=== PATIENT | female | born 1965 | race Caucasian/White ===

== ENCOUNTER 2018-03-09 10:01 | Inpatient (IN) ==
[2018-03-09] MEDS ORDERED: Morphine Inj 4 MG/ML Vial ONE (10:10)
--- NOTE | 2018-03-09 10:11 | ED ---
HPI General Chief Complaint: STEMI Alert Stated Complaint: Medical Time Seen by Provider: 03/09/18 10:03 Source: patient Mode of arrival: EMS Limitations: no limitations History of Present Illness MD complaint: Reports chest pain STEMI Alert: Yes Onset (ago): minute(s) (45) Duration: constant Onset: during rest Pain location: Reports substernal Severity: severe Severity scale (1-10): 8 Quality: Reports tightness Pain radiation: Reports back Relieving factors: nothing Exacerbating factors: nothing Associated symptoms: Reports nausea and diaphoresis Treatments prior to arrival chest pain: Reports aspirin (324 BY EMS) and oxygen Related Data Previous Rx's Medication Instructions Recorded diclofenac sodium 75 mg PO BID #20 tab 11/25/17 Allergies Allergy/AdvReac Type Severity Reaction Status Date / Time amoxicillin Allergy Mild RED RASH Verified 03/09/18 11:23 iodine Allergy Mild Hives Verified 03/09/18 11:23 penicillin G Allergy Mild RED RASH Verified 03/09/18 11:23 potassium iodide Allergy Mild Hives Verified 03/09/18 11:23 povidone-iodine Allergy Mild Hives Verified 03/09/18 11:23 sodium iodide Allergy Mild Hives Verified 03/09/18 11:23 sodium iodide Allergy Mild Hives Verified 03/09/18 11:23 Sulfa (Sulfonamide Allergy Mild RED RASH Verified 03/09/18 11:23 Antibiotics) ALL CILLINS Allergy Severe Rash Uncoded 03/09/18 11:23 Review of Systems ROS: all other systems reviewed are negative PMFSH History History Provided By: Patient Medical History Medical History Heart attack (Acute) Patient denies medical problems (Acute) Surgical History Surgical History History of cardiac cath (Acute) Status post surgical manipulation of ankle joint (Acute) Family History Family History Other Family history non-contributory Social History Social History Substance History: No History of Abuse Second Hand Smoke Exposure: No Smoking Status: Former smoker Tobacco Type: Cigarettes How Often Do You Have a Drink Containing Alcohol: Never Recent Travel in [facility] within the Last 8 Weeks: No Recent Out of Country Travel within the Last 8 Weeks: No Exam Narrative Exam Narrative: GENERAL: female in moderate distress, diaphoresis SKIN: Warm and dry. HEAD: Atraumatic. Normocephalic. EYES: Pupils equal and round. No scleral icterus. No injection or drainage. ENT: No nasal bleeding or discharge. Mucous membranes pink and moist. NECK: Trachea midline. No JVD. CARDIOVASCULAR: Regular rate and rhythm. no rubs or gallops.bilateral radial pulses equal nonbounding RESPIRATORY: No accessory muscle use. Clear to auscultation. Breath sounds equal bilaterally. GASTROINTESTINAL: Abdomen soft, non-tender, nondistended. No rebound or guarding MUSCULOSKELETAL: Extremities without clubbing, cyanosis, or edema. No obvious deformities. NEUROLOGICAL: Awake and alert. No obvious cranial nerve deficits. Motor grossly within normal limits. Five out of 5 muscle strength in the arms and legs. Normal speech. PSYCHIATRIC: Appropriate mood and affect; insight and judgment normal. Course Initial Documented Vital Signs Temperature 98 F 03/09/18 10:06 Pulse Rate 66 03/09/18 10:06 Respiratory Rate 18 03/09/18 10:06 Blood Pressure 138/96 H 03/09/18 10:06 Pulse Oximetry 97 03/09/18 10:06 Last Documented Vital Signs Temperature 98.9 F 03/14/18 03:00 Pulse Rate 82 03/14/18 06:00 Respiratory Rate 20 03/14/18 03:00 Blood Pressure 117/58 L 03/14/18 03:00 Pulse Oximetry 93 L 03/14/18 03:00 Critical Care Time Critical Care Time: Yes Total Critical Care Time: 30 Attestation: Aggregate critical care time was 30 minutes. Time to perform other separately billable procedures was not included in the critical care time. My time did not include minutes spent treating any other patients simultaneously or on activities that did not directly contribute to the patient's treatment. The services I provided to this patient were to treat and/or prevent clinically significant deterioration I provided critical care services requiring my management, as noted below: Chart data review, documentation time, medication orders and management, vital sign assessments/reviewing monitor data, ordering and reviewing lab tests, ordering and interpreting/reviewing x-rays and diagnostic studies, care of the patient and discussion of the patient with the admitting physicians. Medical Decision Making MDM Narrative Medical decision making narrative: EKG reviewed showing normal sinus, 62 bpm, ST elevations in 2 3 aVF consistent with an inferior STEMI, these findings were discussed with brewery technician Dr. Felipe Benitez who requested Dr. Hall in the [facility] be alerted...due to inferior ekg changes ntg avoided as it could cause hypotension. patient not hypertensive or tachycardic so beta blockers withheld Due to the patient's initial presentation with severe chest pain radiating towards the back there was a concern for aneurysm, patient was given morphine fluids oxygen (withheld anticoagulant) and transported to CTA to rule out aneurysm, however patient stated that she was allergic to iodine at which time aborted the CT and went straight to the [facility] Medical Screen Exam Complete: Yes Emergency Medical Condition: Yes Lab Data Result diagrams: 03/12/18 04:00 03/12/18 04:00 Lab Results 03/09/18 03/09/18 03/09/18 Range/Units 11:12 11:18 11:18 WBC 11.7 H (4.0-11.0) th/mm3 RBC 4.49 (4.00-5.30) mil/mm3 Hgb 13.5 (11.6-15.3) gm/dL POC Hgb (Calc) Cancelled Hct 39.5 (35.0-46.0) % POC Hct Cancelled MCV 87.8 (80.0-100.0) fL MCH 30.0 (27.0-34.0) pg MCHC 34.2 (32.0-36.0) % RDW 13.5 (11.6-17.2) % Plt Count 227 (150-450) th/mm3 MPV 9.2 (7.0-11.0) fL Neut % (Auto) 78.4 H (16.0-70.0) % Lymph % (Auto) 14.6 (9.0-44.0) % Lander % (Auto) 2.6 (0.0-8.0) % Eos % (Auto) 3.8 (0.0-4.0) % Baso % (Auto) 0.6 (0.0-2.0) % Neut # (Auto) 9.2 H (1.8-7.7) th/mm3 Lymph # (Auto) 1.7 (1.0-4.8) th/mm3 Lander # (Auto) 0.3 (0.0-0.9) th/mm3 Eos # (Auto) 0.4 (0.0-0.4) th/mm3 Baso # (Auto) 0.1 (0.0-0.2) th/mm3 WBC Differential . Differential Comment Auto diff final PT (9.8-11.6) sec INR Ratio APTT (23.4-31.7) sec Fibrinogen (227-377) mg/dL POC Sodium Cancelled Sodium 134 L (136-145) meq/L POC Potassium Cancelled Potassium 3.8 (3.5-5.1) meq/L POC Chloride Cancelled Chloride 102 (98-107) meq/L Carbon Dioxide 23.4 (21.0-32.0) meq/L Anion Gap 9 (5-15) meq/L POC BUN Cancelled BUN 15 (7-18) mg/dL Creatinine 0.51 (0.50-1.00) mg/dL POC Creatinine Cancelled Estimated GFR Greater than 89 (>89) mL/min POC Glucose Cancelled Random Glucose 130 H (74-106) mg/dL Lactic Acid (0.4-2.0) mmol/L Calcium 7.8 L (8.5-10.1) mg/dL Calcium Adj for Albumin (8.5-10.1) mg/dL Magnesium 1.8 (1.5-2.5) mg/dL Total Bilirubin (0.2-1.0) mg/dL AST (15-37) U/L ALT (10-53) U/L Alkaline Phosphatase (45-117) U/L Total Creatine Kinase 56 (26-192) U/L Troponin I 0.16 H (0.02-0.05) ng/mL B-Natriuretic Peptide (0-100) pg/mL Total Protein (6.4-8.2) g/dL Albumin (3.4-5.0) g/dL Blood Type B Positive Antibody Screen Negative MTS Gel Crossmatch 03/09/18 03/09/18 03/09/18 Range/Units 11:18 11:36 11:39 WBC (4.0-11.0) th/mm3 RBC (4.00-5.30) mil/mm3 Hgb (11.6-15.3) gm/dL POC Hgb (Calc) Hct (35.0-46.0) % POC Hct MCV (80.0-100.0) fL MCH (27.0-34.0) pg MCHC (32.0-36.0) % RDW (11.6-17.2) % Plt Count (150-450) th/mm3 MPV (7.0-11.0) fL Neut % (Auto) (16.0-70.0) % Lymph % (Auto) (9.0-44.0) % Lander % (Auto) (0.0-8.0) % Eos % (Auto) (0.0-4.0) % Baso % (Auto) (0.0-2.0) % Neut # (Auto) (1.8-7.7) th/mm3 Lymph # (Auto) (1.0-4.8) th/mm3 Lander # (Auto) (0.0-0.9) th/mm3 Eos # (Auto) (0.0-0.4) th/mm3 Baso # (Auto) (0.0-0.2) th/mm3 WBC Differential Differential Comment PT (9.8-11.6) sec INR Ratio APTT (23.4-31.7) sec Fibrinogen (227-377) mg/dL POC Sodium Sodium Cancelled (136-145) meq/L POC Potassium Potassium Cancelled (3.5-5.1) meq/L POC Chloride Chloride Cancelled (98-107) meq/L Carbon Dioxide Cancelled (21.0-32.0) meq/L Anion Gap Cancelled (5-15) meq/L POC BUN BUN Cancelled (7-18) mg/dL Creatinine Cancelled (0.50-1.00) mg/dL POC Creatinine Estimated GFR Cancelled (>89) mL/min POC Glucose Random Glucose Cancelled (74-106) mg/dL Lactic Acid (0.4-2.0) mmol/L Calcium Cancelled (8.5-10.1) mg/dL Calcium Adj for Albumin (8.5-10.1) mg/dL Magnesium (1.5-2.5) mg/dL Total Bilirubin (0.2-1.0) mg/dL AST (15-37) U/L ALT (10-53) U/L Alkaline Phosphatase (45-117) U/L Total Creatine Kinase (26-192) U/L Troponin I (0.02-0.05) ng/mL B-Natriuretic Peptide 33 (0-100) pg/mL Total Protein (6.4-8.2) g/dL Albumin (3.4-5.0) g/dL Blood Type Antibody Screen MTS Gel Crossmatch See Detail 03/09/18 03/09/18 03/09/18 Range/Units 12:40 12:48 16:25 WBC 25.5 H D (4.0-11.0) th/mm3 RBC 4.54 (4.00-5.30) mil/mm3 Hgb 14.1 (11.6-15.3) gm/dL POC Hgb (Calc) Hct 41.3 (35.0-46.0) % POC Hct MCV 91.0 (80.0-100.0) fL MCH 31.1 (27.0-34.0) pg MCHC 34.1 (32.0-36.0) % RDW 13.8 (11.6-17.2) % Plt Count 134 L D (150-450) th/mm3 MPV 9.1 (7.0-11.0) fL Neut % (Auto) 92.0 H (16.0-70.0) % Lymph % (Auto) 5.7 L (9.0-44.0) % Lander % (Auto) 1.7 (0.0-8.0) % Eos % (Auto) 0.3 (0.0-4.0) % Baso % (Auto) 0.3 (0.0-2.0) % Neut # (Auto) 23.4 H (1.8-7.7) th/mm3 Lymph # (Auto) 1.4 (1.0-4.8) th/mm3 Lander # (Auto) 0.4 (0.0-0.9) th/mm3 Eos # (Auto) 0.1 (0.0-0.4) th/mm3 Baso # (Auto) 0.1 (0.0-0.2) th/mm3 WBC Differential . Differential Comment Auto diff final PT 10.7 (9.8-11.6) sec INR 1.1 Ratio APTT 48.8 H (23.4-31.7) sec Fibrinogen (227-377) mg/dL POC Sodium Sodium (136-145) meq/L POC Potassium Potassium (3.5-5.1) meq/L POC Chloride Chloride (98-107) meq/L Carbon Dioxide (21.0-32.0) meq/L Anion Gap (5-15) meq/L POC BUN BUN (7-18) mg/dL Creatinine (0.50-1.00) mg/dL POC Creatinine Estimated GFR (>89) mL/min POC Glucose Random Glucose (74-106) mg/dL Lactic Acid (0.4-2.0) mmol/L Calcium (8.5-10.1) mg/dL Calcium Adj for Albumin (8.5-10.1) mg/dL Magnesium (1.5-2.5) mg/dL Total Bilirubin (0.2-1.0) mg/dL AST (15-37) U/L ALT (10-53) U/L Alkaline Phosphatase (45-117) U/L Total Creatine Kinase (26-192) U/L Troponin I (0.02-0.05) ng/mL B-Natriuretic Peptide (0-100) pg/mL Total Protein (6.4-8.2) g/dL Albumin (3.4-5.0) g/dL Blood Type Antibody Screen MTS Gel Crossmatch See Detail 03/09/18 03/09/18 03/09/18 Range/Units 16:25 16:25 16:25 WBC (4.0-11.0) th/mm3 RBC (4.00-5.30) mil/mm3 Hgb (11.6-15.3) gm/dL POC Hgb (Calc) Hct (35.0-46.0) % POC Hct MCV (80.0-100.0) fL MCH (27.0-34.0) pg MCHC (32.0-36.0) % RDW (11.6-17.2) % Plt Count (150-450) th/mm3 MPV (7.0-11.0) fL Neut % (Auto) (16.0-70.0) % Lymph % (Auto) (9.0-44.0) % Lander % (Auto) (0.0-8.0) % Eos % (Auto) (0.0-4.0) % Baso % (Auto) (0.0-2.0) % Neut # (Auto) (1.8-7.7) th/mm3 Lymph # (Auto) (1.0-4.8) th/mm3 Lander # (Auto) (0.0-0.9) th/mm3 Eos # (Auto) (0.0-0.4) th/mm3 Baso # (Auto) (0.0-0.2) th/mm3 WBC Differential Differential Comment PT 11.7 H (9.8-11.6) sec INR 1.2 Ratio APTT 26.1 D (23.4-31.7) sec Fibrinogen 166 L (227-377) mg/dL POC Sodium Sodium 141 (136-145) meq/L POC Potassium Potassium 3.9 (3.5-5.1) meq/L POC Chloride Chloride 109 H (98-107) meq/L Carbon Dioxide 26.6 (21.0-32.0) meq/L Anion Gap 5 (5-15) meq/L POC BUN BUN 12 (7-18) mg/dL Creatinine 0.65 (0.50-1.00) mg/dL POC Creatinine Estimated GFR Greater than 89 (>89) mL/min POC Glucose Random Glucose 138 H (74-106) mg/dL Lactic Acid 3.4 H (0.4-2.0) mmol/L Calcium 6.8 L* D (8.5-10.1) mg/dL Calcium Adj for Albumin 7.9 L (8.5-10.1) mg/dL Magnesium 2.5 D (1.5-2.5) mg/dL Total Bilirubin 0.6 (0.2-1.0) mg/dL AST 56 H (15-37) U/L ALT 16 (10-53) U/L Alkaline Phosphatase 49 (45-117) U/L Total Creatine Kinase (26-192) U/L Troponin I (0.02-0.05) ng/mL B-Natriuretic Peptide (0-100) pg/mL Total Protein 5.0 L (6.4-8.2) g/dL Albumin 2.5 L (3.4-5.0) g/dL Blood Type Antibody Screen MTS Gel Crossmatch 03/09/18 03/09/18 03/09/18 Range/Units 17:07 18:09 19:55 WBC (4.0-11.0) th/mm3 RBC (4.00-5.30) mil/mm3 Hgb (11.6-15.3) gm/dL POC Hgb (Calc) Hct (35.0-46.0) % POC Hct MCV (80.0-100.0) fL MCH (27.0-34.0) pg MCHC (32.0-36.0) % RDW (11.6-17.2) % Plt Count (150-450) th/mm3 MPV (7.0-11.0) fL Neut % (Auto) (16.0-70.0) % Lymph % (Auto) (9.0-44.0) % Lander % (Auto) (0.0-8.0) % Eos % (Auto) (0.0-4.0) % Baso % (Auto) (0.0-2.0) % Neut # (Auto) (1.8-7.7) th/mm3 Lymph # (Auto) (1.0-4.8) th/mm3 Lander # (Auto) (0.0-0.9) th/mm3 Eos # (Auto) (0.0-0.4) th/mm3 Baso # (Auto) (0.0-0.2) th/mm3 WBC Differential Differential Comment PT (9.8-11.6) sec INR Ratio APTT (23.4-31.7) sec Fibrinogen (227-377) mg/dL POC Sodium Sodium (136-145) meq/L POC Potassium Potassium (3.5-5.1) meq/L POC Chloride Chloride (98-107) meq/L Carbon Dioxide (21.0-32.0) meq/L Anion Gap (5-15) meq/L POC BUN BUN (7-18) mg/dL Creatinine (0.50-1.00) mg/dL POC Creatinine Estimated GFR (>89) mL/min POC Glucose 104 118 H Random Glucose (74-106) mg/dL Lactic Acid 3.3 H (0.4-2.0) mmol/L Calcium (8.5-10.1) mg/dL Calcium Adj for Albumin (8.5-10.1) mg/dL Magnesium (1.5-2.5) mg/dL Total Bilirubin (0.2-1.0) mg/dL AST (15-37) U/L ALT (10-53) U/L Alkaline Phosphatase (45-117) U/L Total Creatine Kinase (26-192) U/L Troponin I (0.02-0.05) ng/mL B-Natriuretic Peptide (0-100) pg/mL Total Protein (6.4-8.2) g/dL Albumin (3.4-5.0) g/dL Blood Type Antibody Screen MTS Gel Crossmatch 03/09/18 03/09/18 03/09/18 Range/Units 20:01 20:54 21:52 WBC (4.0-11.0) th/mm3 RBC (4.00-5.30) mil/mm3 Hgb (11.6-15.3) gm/dL POC Hgb (Calc) Hct (35.0-46.0) % POC Hct MCV (80.0-100.0) fL MCH (27.0-34.0) pg MCHC (32.0-36.0) % RDW (11.6-17.2) % Plt Count (150-450) th/mm3 MPV (7.0-11.0) fL Neut % (Auto) (16.0-70.0) % Lymph % (Auto) (9.0-44.0) % Lander % (Auto) (0.0-8.0) % Eos % (Auto) (0.0-4.0) % Baso % (Auto) (0.0-2.0) % Neut # (Auto) (1.8-7.7) th/mm3 Lymph # (Auto) (1.0-4.8) th/mm3 Lander # (Auto) (0.0-0.9) th/mm3 Eos # (Auto) (0.0-0.4) th/mm3 Baso # (Auto) (0.0-0.2) th/mm3 WBC Differential Differential Comment PT (9.8-11.6) sec INR Ratio APTT (23.4-31.7) sec Fibrinogen (227-377) mg/dL POC Sodium Sodium (136-145) meq/L POC Potassium Potassium (3.5-5.1) meq/L POC Chloride Chloride (98-107) meq/L Carbon Dioxide (21.0-32.0) meq/L Anion Gap (5-15) meq/L POC BUN BUN (7-18) mg/dL Creatinine (0.50-1.00) mg/dL POC Creatinine Estimated GFR (>89) mL/min POC Glucose 127 H 110 95 Random Glucose (74-106) mg/dL Lactic Acid (0.4-2.0) mmol/L Calcium (8.5-10.1) mg/dL Calcium Adj for Albumin (8.5-10.1) mg/dL Magnesium (1.5-2.5) mg/dL Total Bilirubin (0.2-1.0) mg/dL AST (15-37) U/L ALT (10-53) U/L Alkaline Phosphatase (45-117) U/L Total Creatine Kinase (26-192) U/L Troponin I (0.02-0.05) ng/mL B-Natriuretic Peptide (0-100) pg/mL Total Protein (6.4-8.2) g/dL Albumin (3.4-5.0) g/dL Blood Type Antibody Screen MTS Gel Crossmatch 03/09/18 03/10/18 03/10/18 Range/Units 23:18 00:14 02:17 WBC (4.0-11.0) th/mm3 RBC (4.00-5.30) mil/mm3 Hgb (11.6-15.3) gm/dL POC Hgb (Calc) Hct (35.0-46.0) % POC Hct MCV (80.0-100.0) fL MCH (27.0-34.0) pg MCHC (32.0-36.0) % RDW (11.6-17.2) % Plt Count (150-450) th/mm3 MPV (7.0-11.0) fL Neut % (Auto) (16.0-70.0) % Lymph % (Auto) (9.0-44.0) % Lander % (Auto) (0.0-8.0) % Eos % (Auto) (0.0-4.0) % Baso % (Auto) (0.0-2.0) % Neut # (Auto) (1.8-7.7) th/mm3 Lymph # (Auto) (1.0-4.8) th/mm3 Lander # (Auto) (0.0-0.9) th/mm3 Eos # (Auto) (0.0-0.4) th/mm3 Baso # (Auto) (0.0-0.2) th/mm3 WBC Differential Differential Comment PT (9.8-11.6) sec INR Ratio APTT (23.4-31.7) sec Fibrinogen (227-377) mg/dL POC Sodium Sodium (136-145) meq/L POC Potassium Potassium (3.5-5.1) meq/L POC Chloride Chloride (98-107) meq/L Carbon Dioxide (21.0-32.0) meq/L Anion Gap (5-15) meq/L POC BUN BUN (7-18) mg/dL Creatinine (0.50-1.00) mg/dL POC Creatinine Estimated GFR (>89) mL/min POC Glucose 144 H 107 Random Glucose (74-106) mg/dL Lactic Acid 1.2 (0.4-2.0) mmol/L Calcium (8.5-10.1) mg/dL Calcium Adj for Albumin (8.5-10.1) mg/dL Magnesium (1.5-2.5) mg/dL Total Bilirubin (0.2-1.0) mg/dL AST (15-37) U/L ALT (10-53) U/L Alkaline Phosphatase (45-117) U/L Total Creatine Kinase (26-192) U/L Troponin I (0.02-0.05) ng/mL B-Natriuretic Peptide (0-100) pg/mL Total Protein (6.4-8.2) g/dL Albumin (3.4-5.0) g/dL Blood Type Antibody Screen MTS Gel Crossmatch 03/10/18 03/10/18 03/10/18 Range/Units 04:39 04:40 04:40 WBC 17.7 H (4.0-11.0) th/mm3 RBC 4.18 (4.00-5.30) mil/mm3 Hgb 12.6 (11.6-15.3) gm/dL POC Hgb (Calc) Hct 37.0 (35.0-46.0) % POC Hct MCV 88.5 (80.0-100.0) fL MCH 30.0 (27.0-34.0) pg MCHC 33.9 (32.0-36.0) % RDW 13.7 (11.6-17.2) % Plt Count 161 (150-450) th/mm3 MPV 9.8 (7.0-11.0) fL Neut % (Auto) (16.0-70.0) % Lymph % (Auto) (9.0-44.0) % Lander % (Auto) (0.0-8.0) % Eos % (Auto) (0.0-4.0) % Baso % (Auto) (0.0-2.0) % Neut # (Auto) (1.8-7.7) th/mm3 Lymph # (Auto) (1.0-4.8) th/mm3 Lander # (Auto) (0.0-0.9) th/mm3 Eos # (Auto) (0.0-0.4) th/mm3 Baso # (Auto) (0.0-0.2) th/mm3 WBC Differential Differential Comment PT (9.8-11.6) sec INR Ratio APTT (23.4-31.7) sec Fibrinogen (227-377) mg/dL POC Sodium Sodium 140 (136-145) meq/L POC Potassium Potassium 4.2 (3.5-5.1) meq/L POC Chloride Chloride 107 (98-107) meq/L Carbon Dioxide 26.7 (21.0-32.0) meq/L Anion Gap 6 (5-15) meq/L POC BUN BUN 15 (7-18) mg/dL Creatinine 0.49 L (0.50-1.00) mg/dL POC Creatinine Estimated GFR Greater than 89 (>89) mL/min POC Glucose 114 H Random Glucose 122 H (74-106) mg/dL Lactic Acid (0.4-2.0) mmol/L Calcium 7.5 L (8.5-10.1) mg/dL Calcium Adj for Albumin (8.5-10.1) mg/dL Magnesium 1.8 D (1.5-2.5) mg/dL Total Bilirubin (0.2-1.0) mg/dL AST (15-37) U/L ALT (10-53) U/L Alkaline Phosphatase (45-117) U/L Total Creatine Kinase (26-192) U/L Troponin I (0.02-0.05) ng/mL B-Natriuretic Peptide (0-100) pg/mL Total Protein (6.4-8.2) g/dL Albumin (3.4-5.0) g/dL Blood Type Antibody Screen MTS Gel Crossmatch 03/10/18 03/10/18 03/10/18 Range/Units 06:38 10:13 14:06 WBC (4.0-11.0) th/mm3 RBC (4.00-5.30) mil/mm3 Hgb (11.6-15.3) gm/dL POC Hgb (Calc) Hct (35.0-46.0) % POC Hct MCV (80.0-100.0) fL MCH (27.0-34.0) pg MCHC (32.0-36.0) % RDW (11.6-17.2) % Plt Count (150-450) th/mm3 MPV (7.0-11.0) fL Neut % (Auto) (16.0-70.0) % Lymph % (Auto) (9.0-44.0) % Lander % (Auto) (0.0-8.0) % Eos % (Auto) (0.0-4.0) % Baso % (Auto) (0.0-2.0) % Neut # (Auto) (1.8-7.7) th/mm3 Lymph # (Auto) (1.0-4.8) th/mm3 Lander # (Auto) (0.0-0.9) th/mm3 Eos # (Auto) (0.0-0.4) th/mm3 Baso # (Auto) (0.0-0.2) th/mm3 WBC Differential Differential Comment PT (9.8-11.6) sec INR Ratio APTT (23.4-31.7) sec Fibrinogen (227-377) mg/dL POC Sodium Sodium (136-145) meq/L POC Potassium Potassium (3.5-5.1) meq/L POC Chloride Chloride (98-107) meq/L Carbon Dioxide (21.0-32.0) meq/L Anion Gap (5-15) meq/L POC BUN BUN (7-18) mg/dL Creatinine (0.50-1.00) mg/dL POC Creatinine Estimated GFR (>89) mL/min POC Glucose 124 H 201 H 135 H Random Glucose (74-106) mg/dL Lactic Acid (0.4-2.0) mmol/L Calcium (8.5-10.1) mg/dL Calcium Adj for Albumin (8.5-10.1) mg/dL Magnesium (1.5-2.5) mg/dL Total Bilirubin (0.2-1.0) mg/dL AST (15-37) U/L ALT (10-53) U/L Alkaline Phosphatase (45-117) U/L Total Creatine Kinase (26-192) U/L Troponin I (0.02-0.05) ng/mL B-Natriuretic Peptide (0-100) pg/mL Total Protein (6.4-8.2) g/dL Albumin (3.4-5.0) g/dL Blood Type Antibody Screen MTS Gel Crossmatch 03/10/18 03/10/18 03/11/18 Range/Units 18:15 21:33 04:30 WBC 16.8 H (4.0-11.0) th/mm3 RBC 3.88 L (4.00-5.30) mil/mm3 Hgb 11.4 L (11.6-15.3) gm/dL POC Hgb (Calc) Hct 34.1 L (35.0-46.0) % POC Hct MCV 88.0 (80.0-100.0) fL MCH 29.5 (27.0-34.0) pg MCHC 33.6 (32.0-36.0) % RDW 13.8 (11.6-17.2) % Plt Count 147 L (150-450) th/mm3 MPV 9.4 (7.0-11.0) fL Neut % (Auto) 82.3 H (16.0-70.0) % Lymph % (Auto) 10.4 (9.0-44.0) % Lander % (Auto) 6.6 (0.0-8.0) % Eos % (Auto) 0.2 (0.0-4.0) % Baso % (Auto) 0.5 (0.0-2.0) % Neut # (Auto) 13.8 H (1.8-7.7) th/mm3 Lymph # (Auto) 1.7 (1.0-4.8) th/mm3 Lander # (Auto) 1.1 H (0.0-0.9) th/mm3 Eos # (Auto) 0.0 (0.0-0.4) th/mm3 Baso # (Auto) 0.1 (0.0-0.2) th/mm3 WBC Differential . Differential Comment Auto diff final PT (9.8-11.6) sec INR Ratio APTT (23.4-31.7) sec Fibrinogen (227-377) mg/dL POC Sodium Sodium (136-145) meq/L POC Potassium Potassium (3.5-5.1) meq/L POC Chloride Chloride (98-107) meq/L Carbon Dioxide (21.0-32.0) meq/L Anion Gap (5-15) meq/L POC BUN BUN (7-18) mg/dL Creatinine (0.50-1.00) mg/dL POC Creatinine Estimated GFR (>89) mL/min POC Glucose 177 H 85 Random Glucose (74-106) mg/dL Lactic Acid (0.4-2.0) mmol/L Calcium (8.5-10.1) mg/dL Calcium Adj for Albumin (8.5-10.1) mg/dL Magnesium (1.5-2.5) mg/dL Total Bilirubin (0.2-1.0) mg/dL AST (15-37) U/L ALT (10-53) U/L Alkaline Phosphatase (45-117) U/L Total Creatine Kinase (26-192) U/L Troponin I (0.02-0.05) ng/mL B-Natriuretic Peptide (0-100) pg/mL Total Protein (6.4-8.2) g/dL Albumin (3.4-5.0) g/dL Blood Type Antibody Screen MTS Gel Crossmatch 03/11/18 03/11/18 03/11/18 Range/Units 04:30 04:41 10:35 WBC (4.0-11.0) th/mm3 RBC (4.00-5.30) mil/mm3 Hgb (11.6-15.3) gm/dL POC Hgb (Calc) Hct (35.0-46.0) % POC Hct MCV (80.0-100.0) fL MCH (27.0-34.0) pg MCHC (32.0-36.0) % RDW (11.6-17.2) % Plt Count (150-450) th/mm3 MPV (7.0-11.0) fL Neut % (Auto) (16.0-70.0) % Lymph % (Auto) (9.0-44.0) % Lander % (Auto) (0.0-8.0) % Eos % (Auto) (0.0-4.0) % Baso % (Auto) (0.0-2.0) % Neut # (Auto) (1.8-7.7) th/mm3 Lymph # (Auto) (1.0-4.8) th/mm3 Lander # (Auto) (0.0-0.9) th/mm3 Eos # (Auto) (0.0-0.4) th/mm3 Baso # (Auto) (0.0-0.2) th/mm3 WBC Differential Differential Comment PT (9.8-11.6) sec INR Ratio APTT (23.4-31.7) sec Fibrinogen (227-377) mg/dL POC Sodium Sodium 136 (136-145) meq/L POC Potassium Potassium 4.2 (3.5-5.1) meq/L POC Chloride Chloride 100 (98-107) meq/L Carbon Dioxide 29.0 (21.0-32.0) meq/L Anion Gap 7 (5-15) meq/L POC BUN BUN 11 (7-18) mg/dL Creatinine 0.54 (0.50-1.00) mg/dL POC Creatinine Estimated GFR Greater than 89 (>89) mL/min POC Glucose 149 H 140 H Random Glucose 143 H (74-106) mg/dL Lactic Acid (0.4-2.0) mmol/L Calcium 7.9 L (8.5-10.1) mg/dL Calcium Adj for Albumin (8.5-10.1) mg/dL Magnesium 2.4 D (1.5-2.5) mg/dL Total Bilirubin (0.2-1.0) mg/dL AST (15-37) U/L ALT (10-53) U/L Alkaline Phosphatase (45-117) U/L Total Creatine Kinase (26-192) U/L Troponin I (0.02-0.05) ng/mL B-Natriuretic Peptide (0-100) pg/mL Total Protein (6.4-8.2) g/dL Albumin (3.4-5.0) g/dL Blood Type Antibody Screen MTS Gel Crossmatch 03/11/18 03/11/18 03/12/18 Range/Units 14:10 21:06 04:00 WBC 14.6 H (4.0-11.0) th/mm3 RBC 3.39 L (4.00-5.30) mil/mm3 Hgb 10.2 L (11.6-15.3) gm/dL POC Hgb (Calc) Hct 30.4 L (35.0-46.0) % POC Hct MCV 89.6 (80.0-100.0) fL MCH 30.0 (27.0-34.0) pg MCHC 33.5 (32.0-36.0) % RDW 13.7 (11.6-17.2) % Plt Count 141 L (150-450) th/mm3 MPV 10.0 (7.0-11.0) fL Neut % (Auto) (16.0-70.0) % Lymph % (Auto) (9.0-44.0) % Lander % (Auto) (0.0-8.0) % Eos % (Auto) (0.0-4.0) % Baso % (Auto) (0.0-2.0) % Neut # (Auto) (1.8-7.7) th/mm3 Lymph # (Auto) (1.0-4.8) th/mm3 Lander # (Auto) (0.0-0.9) th/mm3 Eos # (Auto) (0.0-0.4) th/mm3 Baso # (Auto) (0.0-0.2) th/mm3 WBC Differential Differential Comment PT (9.8-11.6) sec INR Ratio APTT (23.4-31.7) sec Fibrinogen (227-377) mg/dL POC Sodium Sodium (136-145) meq/L POC Potassium Potassium (3.5-5.1) meq/L POC Chloride Chloride (98-107) meq/L Carbon Dioxide (21.0-32.0) meq/L Anion Gap (5-15) meq/L POC BUN BUN (7-18) mg/dL Creatinine (0.50-1.00) mg/dL POC Creatinine Estimated GFR (>89) mL/min POC Glucose 139 H 130 H Random Glucose (74-106) mg/dL Lactic Acid (0.4-2.0) mmol/L Calcium (8.5-10.1) mg/dL Calcium Adj for Albumin (8.5-10.1) mg/dL Magnesium (1.5-2.5) mg/dL Total Bilirubin (0.2-1.0) mg/dL AST (15-37) U/L ALT (10-53) U/L Alkaline Phosphatase (45-117) U/L Total Creatine Kinase (26-192) U/L Troponin I (0.02-0.05) ng/mL B-Natriuretic Peptide (0-100) pg/mL Total Protein (6.4-8.2) g/dL Albumin (3.4-5.0) g/dL Blood Type Antibody Screen MTS Gel Crossmatch 03/12/18 03/12/18 03/12/18 Range/Units 04:00 08:05 12:10 WBC (4.0-11.0) th/mm3 RBC (4.00-5.30) mil/mm3 Hgb (11.6-15.3) gm/dL POC Hgb (Calc) Hct (35.0-46.0) % POC Hct MCV (80.0-100.0) fL MCH (27.0-34.0) pg MCHC (32.0-36.0) % RDW (11.6-17.2) % Plt Count (150-450) th/mm3 MPV (7.0-11.0) fL Neut % (Auto) (16.0-70.0) % Lymph % (Auto) (9.0-44.0) % Lander % (Auto) (0.0-8.0) % Eos % (Auto) (0.0-4.0) % Baso % (Auto) (0.0-2.0) % Neut # (Auto) (1.8-7.7) th/mm3 Lymph # (Auto) (1.0-4.8) th/mm3 Lander # (Auto) (0.0-0.9) th/mm3 Eos # (Auto) (0.0-0.4) th/mm3 Baso # (Auto) (0.0-0.2) th/mm3 WBC Differential Differential Comment PT (9.8-11.6) sec INR Ratio APTT (23.4-31.7) sec Fibrinogen (227-377) mg/dL POC Sodium Sodium 138 (136-145) meq/L POC Potassium Potassium 3.4 L D (3.5-5.1) meq/L POC Chloride Chloride 101 (98-107) meq/L Carbon Dioxide 31.0 (21.0-32.0) meq/L Anion Gap 6 (5-15) meq/L POC BUN BUN 9 (7-18) mg/dL Creatinine 0.53 (0.50-1.00) mg/dL POC Creatinine Estimated GFR Greater than 89 (>89) mL/min POC Glucose 116 H 121 H Random Glucose 126 H (74-106) mg/dL Lactic Acid (0.4-2.0) mmol/L Calcium 7.6 L (8.5-10.1) mg/dL Calcium Adj for Albumin (8.5-10.1) mg/dL Magnesium 2.2 (1.5-2.5) mg/dL Total Bilirubin (0.2-1.0) mg/dL AST (15-37) U/L ALT (10-53) U/L Alkaline Phosphatase (45-117) U/L Total Creatine Kinase (26-192) U/L Troponin I (0.02-0.05) ng/mL B-Natriuretic Peptide (0-100) pg/mL Total Protein (6.4-8.2) g/dL Albumin (3.4-5.0) g/dL Blood Type Antibody Screen MTS Gel Crossmatch 03/12/18 03/13/18 03/13/18 Range/Units 17:49 11:22 16:56 WBC (4.0-11.0) th/mm3 RBC (4.00-5.30) mil/mm3 Hgb (11.6-15.3) gm/dL POC Hgb (Calc) Hct (35.0-46.0) % POC Hct MCV (80.0-100.0) fL MCH (27.0-34.0) pg MCHC (32.0-36.0) % RDW (11.6-17.2) % Plt Count (150-450) th/mm3 MPV (7.0-11.0) fL Neut % (Auto) (16.0-70.0) % Lymph % (Auto) (9.0-44.0) % Lander % (Auto) (0.0-8.0) % Eos % (Auto) (0.0-4.0) % Baso % (Auto) (0.0-2.0) % Neut # (Auto) (1.8-7.7) th/mm3 Lymph # (Auto) (1.0-4.8) th/mm3 Lander # (Auto) (0.0-0.9) th/mm3 Eos # (Auto) (0.0-0.4) th/mm3 Baso # (Auto) (0.0-0.2) th/mm3 WBC Differential Differential Comment PT (9.8-11.6) sec INR Ratio APTT (23.4-31.7) sec Fibrinogen (227-377) mg/dL POC Sodium Sodium (136-145) meq/L POC Potassium Potassium (3.5-5.1) meq/L POC Chloride Chloride (98-107) meq/L Carbon Dioxide (21.0-32.0) meq/L Anion Gap (5-15) meq/L POC BUN BUN (7-18) mg/dL Creatinine (0.50-1.00) mg/dL POC Creatinine Estimated GFR (>89) mL/min POC Glucose 180 H 120 H 140 H Random Glucose (74-106) mg/dL Lactic Acid (0.4-2.0) mmol/L Calcium (8.5-10.1) mg/dL Calcium Adj for Albumin (8.5-10.1) mg/dL Magnesium (1.5-2.5) mg/dL Total Bilirubin (0.2-1.0) mg/dL AST (15-37) U/L ALT (10-53) U/L Alkaline Phosphatase (45-117) U/L Total Creatine Kinase (26-192) U/L Troponin I (0.02-0.05) ng/mL B-Natriuretic Peptide (0-100) pg/mL Total Protein (6.4-8.2) g/dL Albumin (3.4-5.0) g/dL Blood Type Antibody Screen MTS Gel Crossmatch 03/13/18 03/14/18 Range/Units 20:09 08:01 WBC (4.0-11.0) th/mm3 RBC (4.00-5.30) mil/mm3 Hgb (11.6-15.3) gm/dL POC Hgb (Calc) Hct (35.0-46.0) % POC Hct MCV (80.0-100.0) fL MCH (27.0-34.0) pg MCHC (32.0-36.0) % RDW (11.6-17.2) % Plt Count (150-450) th/mm3 MPV (7.0-11.0) fL Neut % (Auto) (16.0-70.0) % Lymph % (Auto) (9.0-44.0) % Lander % (Auto) (0.0-8.0) % Eos % (Auto) (0.0-4.0) % Baso % (Auto) (0.0-2.0) % Neut # (Auto) (1.8-7.7) th/mm3 Lymph # (Auto) (1.0-4.8) th/mm3 Lander # (Auto) (0.0-0.9) th/mm3 Eos # (Auto) (0.0-0.4) th/mm3 Baso # (Auto) (0.0-0.2) th/mm3 WBC Differential Differential Comment PT (9.8-11.6) sec INR Ratio APTT (23.4-31.7) sec Fibrinogen (227-377) mg/dL POC Sodium Sodium (136-145) meq/L POC Potassium Potassium (3.5-5.1) meq/L POC Chloride Chloride (98-107) meq/L Carbon Dioxide (21.0-32.0) meq/L Anion Gap (5-15) meq/L POC BUN BUN (7-18) mg/dL Creatinine (0.50-1.00) mg/dL POC Creatinine Estimated GFR (>89) mL/min POC Glucose 84 117 H Random Glucose (74-106) mg/dL Lactic Acid (0.4-2.0) mmol/L Calcium (8.5-10.1) mg/dL Calcium Adj for Albumin (8.5-10.1) mg/dL Magnesium (1.5-2.5) mg/dL Total Bilirubin (0.2-1.0) mg/dL AST (15-37) U/L ALT (10-53) U/L Alkaline Phosphatase (45-117) U/L Total Creatine Kinase (26-192) U/L Troponin I (0.02-0.05) ng/mL B-Natriuretic Peptide (0-100) pg/mL Total Protein (6.4-8.2) g/dL Albumin (3.4-5.0) g/dL Blood Type Antibody Screen MTS Gel Crossmatch Imaging Data Radiologist's impression: Chest X-Ray 03/09/18 15:34 CONCLUSION: Satisfactory postop appearance Carotid Doppler Study 03/09/18 16:31 CONCLUSION: 1. Extremely Limited examination with nonvisualization of the right carotid artery. 2. Findings concerning for left common carotid dissection. Recommend carotid CT angiography for further evaluation. Chest X-Ray 03/10/18 05:00 CONCLUSION: Extubation. Basilar atelectasis. No significant effusion. No pneumothorax. Thoracic Aorta CT 03/11/18 00:00 CONCLUSION: 1. 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 2. No evidence of dissection propagation into the carotids or subclavians 3. Descending aortic dissection with relatively mild true luminal compromise. Satisfactory preservation of flow in the celiac and SMA. Dissection terminates above the renal artery origins Chest X-Ray 03/12/18 06:00 CONCLUSION: The left chest tube has been removed and no pneumothorax is visualized. Lungs are underinflated and there is bibasilar atelectasis. Discharge Plan Discharge Disposition Patient Disposition: 30 Still Patient Discharge Condition Condition: Fair Discharge Details Diagnosis: Acute ST elevation myocardial infarction (STEMI) Physicians Team ED Provider: Christopher Felix Primary Care Provider: UNKNOWN, Attending Provider: Felipe Benitez Other Providers: Jesus Pepe Status ED Status: Left Department Discharge Information Discharge Date/Time: 03/09/18 10:15
[2018-03-09] MEDS ORDERED: Sod Chloride 0.9% Inj 1,000 ML IV.SIG SCH (10:15)
[2018-03-09] MEDS ORDERED: Lidocaine PF 1% Inj 30 ML Vial ONE (10:26)
[2018-03-09] MEDS ORDERED: Heparin/NS PF Inj 1,000 ML ONE ×2 (10:26→11:11)
[2018-03-09] MEDS ORDERED: Hydrocortisone Sod Succinate 100 MG Vial ONE (10:27)
[2018-03-09] MEDS ORDERED: fentaNYL Citrate Inj 100 MCG/2 ML Ampul ONE ×2 (10:31→10:57)
[2018-03-09] MEDS ORDERED: Heparin 10,000 UNITS/10 ML Vial (for IV use) ONE ×2 (10:37→12:45)
[2018-03-09] MEDS ORDERED: Cangrelor Inj 50,000 MCG Vial ONE (10:38)
[2018-03-09] MEDS ORDERED: Metoprolol Inj 5 MG/5 ML Vial IV.PUSH SCH (11:00)
[2018-03-09] MEDS ORDERED: Morphine Inj 4 MG/ML Vial IV.PUSH ONE (11:18)
[2018-03-09 11:42] LABS: Baso # (Auto) 0.1 th/mm3 (0.0-0.2); Baso % (Auto) 0.6 % (0.0-2.0); Eos # (Auto) 0.4 th/mm3 (0.0-0.4); Eos % (Auto) 3.8 % (0.0-4.0); Hematocrit 39.5 % (35.0-46.0); Hemoglobin 13.5 gm/dL (11.6-15.3); Lymph # (Auto) 1.7 th/mm3 (1.0-4.8); Lymph % (Auto) 14.6 % (9.0-44.0); Mean Corpuscular HGB Conc 34.2 % (32.0-36.0); Mean Corpuscular Volume 87.8 fL (80.0-100.0); Mean Platelet Volume 9.2 fL (7.0-11.0); Mono # (Auto) 0.3 th/mm3 (0.0-0.9); Mono % (Auto) 2.6 % (0.0-8.0); Neut # (Auto) 9.2 th/mm3 (1.8-7.7); Neut % (Auto) 78.4 % (16.0-70.0); Platelet Count 227 th/mm3 (150-450); Red Blood Count 4.49 mil/mm3 (4.00-5.30); Red Cell Distribution Width 13.5 % (11.6-17.2); White Blood Count 11.7 th/mm3 (4.0-11.0)
[2018-03-09 12:01] LABS: Anion Gap 9 meq/L (5-15); Blood Urea Nitrogen 15 mg/dL (7-18); Calcium 7.8 mg/dL (8.5-10.1); Carbon Dioxide 23.4 meq/L (21.0-32.0); Chloride 102 meq/L (98-107); Glucose,Random 130 mg/dL (74-106); Magnesium 1.8 mg/dL (1.5-2.5); Potassium 3.8 meq/L (3.5-5.1); Sodium 134 meq/L (136-145)
[2018-03-09 12:03] LABS: Glomerular Filtration Rate Greater Than 89 mL/min (>89); Troponin I 0.16 ng/mL (0.02-0.05)
[2018-03-09] MEDS ORDERED: MethylPREDNISolone Sod Succinate Inj 125 MG/2 ML Vial ONE ×2 (12:03→12:10)
--- NOTE | 2018-03-09 12:08 | CATHPROC ---
[employer] HIS Report Study Information Study Number Admission Scheduled Start Study Start [id number] Mar 09 2018 10:01AM 03/09/2018 Mar 09 2018 10:25AM [facility] Service Electrophysiology Study Admit Source Facility Department Emergency department [facility] - Costume Designer Physician and Clinical Staff Initial Ganesh Christianson Patient Manager Cesario Rae,RN Patient Manager Joe Abebe RN Other cathlab, cathlab Recorder Asad Carcamo RCIS(BS) Scrub Laya Hong,COVERING MACHINE TENDER TECH2 Procedures Performed Procedure Location (Site) Vessel Name Angiogram LV Asc. Aorta (A) Coronary Angiograms LCA Left Coronary Coronary Angiograms RCA Right Coronary L Heart Cath PTCA RCA Dist Right Coronary PTCA RCA Prox Right Coronary Stent RCA Dist Right Coronary Stent RCA Mid Right Coronary Stent RCA Prox Right Coronary Wire insertion Radial (right) Radial Art. Equipment Time Systems Project Manager Description Size Mfg Part Number Used/Scraped COPILOT VALVE, BLEEDBACK [id number] 10:33 [employer] Used CONTROL *[id number] TRANSDUCER, TRUWAVE [id number] 10:26 MCGINNIS HARPER * Used W/STOCKCOCK *[id number] STENT, 4.5 X 16MM REBEL [id number] 11:23 BOSTON [employer] 4.5 X 16MM Used MONORAIL *[id number] STENT, 4.5 X 24MM REBEL [id number] 11:17 [employer] 4.5 X 24MM Used MONORAIL *[id number] *[id number] *[id number] [id number] *[id number] [id number] *[id number] 10:26 Imagine[employer]ix BLANKET,WARM AIR CCL * Used *[id number] 10:26 [employer] PACK, CCL CUSTOM * Used *[id number] 10:26 [employer] SUPPORT, ARTERIAL ADULT [id number] *[id number] Used [id number] 10:57 MEDTRONIC BALLOON, 2.5 X 20MM EUPHORA 20MM Used *[id number] 11:11 MEDTRONIC STENT, 3.0 30 INTEGRITY 3.0 30 Used *[id number] [id number] 11:14 MEDTRONIC STENT, 4.0 26 INTEGRITY 4.0 26 Used *0949521 [id number] 11:18 MEDTRONIC STENT, 4.0 26 INTEGRITY 4.0 26 Used *[id number] [id number] 10:34 [employer] Imaging 30 ESTHELA INDEFLATOR Used *[id number] BAND, RADIAL COMPRESSION TR [id number] 12:07 TIP Imaging 24CM Used SHORT 24 *[id number] SHEATH, FR6 RADIAL PRELUDE 10:26 TIP Imaging FR 6 [id number] Used EASE 11CM [id number] 10:26 TIP Imaging WIRE, EXCHANGE 260CM 3MMJ 260CM Used *[id number] 10:26 NAMIC MANIFOLD, 4 PORT * Used *[id number] 10:26 NYCOMED OMNIPAQUE, 350 MG, 150ML 150ML [id number] Used 10:48 NYCOMED OMNIPAQUE, 350 MG, 50ML 50ML [id number] Used 10:33 NYCOMED OMNIPAQUE, 350 MG, 50ML 50ML [id number] Used SHEATH, FR6 TRANSRADIAL [id number] 11:58 Dot FR 6 Used SLENDER 10CM *[id number] WIRE, RUNTHROUGH NS FLOPPY 25-1011 10:33 TERSpotterRF MEDICAL 180CM Used .014 180CM *[id number] Equipment Model, Serial, Lot Number and Expiration Data Description Model Number Serial Number Lot Number Expiration Date STENT, 3.0 30 INTEGRITY [id number] 09-02-2019 STENT, 4.0 26 INTEGRITY [id number] 07-21-2019 STENT, 4.0 26 INTEGRITY [id number] 01-30-2019 STENT, 4.5 X 16MM REBEL [id number] 02-10-2019 MONORAIL STENT, 4.5 X 24MM REBEL [id number] 02-10-2019 MONORAIL TRANSDUCER, TRUWAVE [id number] 02-10-2019 W/TAMELA History: Allergies Allergy Reaction Sulfa (Sulfonamide Antibiotics) RED RASH potassium iodide Hives sodium iodide Hives iodine Hives povidone-iodine Hives amoxicillin RED RASH penicillin G RED RASH ALL CILLINS Rash History: Risk Factors Family History of Hypertension Dyslipidemia Previous [place] Previous Heart Failure Premature CAD Yes Yes No No No Prior Valve Prior PCI Prior CABG Surgery No No No Cerebrovascular Peripheral Artery Chronic Lung On Dialysis Diabetes Disease Disease Disease No No No No No History: Symptoms/Diagnosis Selection Items Chest pain History: Other Current Smoker Method Quit Packs a Day Years Used Pack Years Yes Cigarettes 2 Years Ago 1 30 30 Labs Hgb (g/dl) 11.60-17.00 Not Drawn Creatinine (mg/dl) 0.50-1.30 Not Drawn CPK-MB (ng/ML) 0.50-3.60 Not Drawn Medication Medication Total Dose (Bolus/Oral) Medication Total Dosage/Unit 1% XYLOCAINE 2 mL BENADRYL 50 mg FENTANYL 100 mcg HEPARIN 5000 units NTG (IC) 200 mcg SOLU-CORTEF 100 mg VERSED 6 mg Medications (Bolus/Oral) Medication Time Given Dosage/Unit Administered By Reason 03/09/2018 10:29:54 BENADRYL 50 mg Cesario Rae AM 50 mg BENADRYL given in lab by Cesario Rae RN in Left Antecubital via Peripheral IV. Ordered by Ganesh Crowell. 03/09/2018 10:29:58 SOLU-CORTEF 100 mg Cesario Rae AM 100 mg SOLU-CORTEF given in lab by Cesario Rae RN in Left Antecubital via Peripheral IV. Ordered Ganesh Huynh. 03/09/2018 10:32:54 VERSED 2 mg Cesario Rae AM 2 mg VERSED given in lab by Cesario Rae RN in Left Antecubital via Peripheral IV. Ordered by Ganesh Hall. 03/09/2018 10:32:59 FENTANYL 50 mcg Cesario Rae AM 50 mcg FENTANYL given in lab by Cesario Rae RN in Left Antecubital via Peripheral IV. Ordered by Ganesh Garcia. 03/09/2018 10:33:40 1% XYLOCAINE 2 mL Ganesh Hall AM 2 mL 1% XYLOCAINE given in lab by Ganesh Hall in Right Radial via Subcutaneous. 03/09/2018 10:35:01 NTG (IC) 200 mcg Ganesh Hall AM 200 mcg NTG (IC) given in lab by Ganesh Hall in Right Radial via Intra-arterial. Ordered by Ganesh Hall. 03/09/2018 10:35:36 HEPARIN 5000 units Cesario Rae AM 5000 units HEPARIN given in lab by Cesario Rae RN in Left Antecubital via Peripheral IV. Ordered Ganesh Huynh. 03/09/2018 10:36:03 VERSED 1 mg Cesario Rae AM 1 mg VERSED given in lab by Cesario Rae RN in Left Antecubital via Peripheral IV. Ordered by Ganesh Hall. 03/09/2018 10:36:08 FENTANYL 25 mcg Cesario Rae AM 25 mcg FENTANYL given in lab by Cesario Rae RN in Left Antecubital via Peripheral IV. Ordered by Ganesh Garcia. 03/09/2018 10:57:52 VERSED 1 mg Cesario Rae AM 1 mg VERSED given in lab by Cesario Rae RN in Left Antecubital via Peripheral IV. Ordered by Ganesh Hall. 03/09/2018 10:57:55 FENTANYL 25 mcg Cesario Rae AM 25 mcg FENTANYL given in lab by Cesario Rae RN in Left Antecubital via Peripheral IV. Ordered by Ganesh Garcia. 03/09/2018 11:05:00 VERSED 2 mg Cesario Rae AM 2 mg VERSED given in lab by Cesario Rae RN in Left Antecubital via Peripheral IV. Ordered by Ganesh Hall. Medication (Drip) Medication Time Given Dosage/Unit Concentration/Unit Diluent (ml) Solution 03/09/2018 10:25:04 IV Solutions 0 mL (IV) 500 NaCl .9 AM Patient arrived on IV Solutions in Left Antecubital via Peripheral IV. Pump/Drip Flow = 20 ml/hr usin g NaCl .9. 03/09/2018 10:50:41 KENGREAL BOLUS 10.5 mL AM 10.5 mL KENGREAL BOLUS given in lab by Joe Abebe RN in Left Antecubital via Peripheral IV. Orde red by Ganesh Hall. 03/09/2018 10:53:38 KENGREAL DRIP 3.851 mcg/kg/min 50 mg 250 NaCl .9 AM 3.851 mcg/kg/min KENGREAL DRIP given in lab by Joe Abebe RN in Left Antecubital via Peripheral IV. Pump/Drip Flow = 84 ml/hr using NaCl .9 with a concentration of 50 mg in 250 ml. Ordered by Ganesh Hall. 03/09/2018 11:25:01 KENGREAL DRIP 0 mcg/kg/min 50 mg 250 NaCl .9 AM 0 mcg/kg/min KENGREAL DRIP given in lab by Cesario Rae RN via Peripheral IV. Pump/Drip Flow = 0 ml /hr using NaCl .9 with a concentration of 50 mg in 250 ml. Ordered by Ganesh Hall. Initial Case Assessment Cardiovascular HR Rhythm NIBP Chest Pain 87 stemi 155/84 9 Edema Present Skin color Skin None Normal Warm Dry Circulatory - Right Pulses Dorsalis Pedis Femoral Radial 2 2 2 Scale (0,1,2,3,4,d) Scale (0,1,2,3,4,d) Neurological State Oriented to time-place- Alert Moves all extremities person Respiration - General Respiration Rate SpO2 (%) (B/min) 15 98 Final Case Assessment Cardiovascular HR Rhythm NIBP Chest Pain 74 stemi 133/83 9 Edema Present Skin color Skin None Normal Warm Dry Circulatory - Right Pulses Dorsalis Pedis Femoral Radial 2 2 2 Scale (0,1,2,3,4,d) Scale (0,1,2,3,4,d) Neurological State Oriented to time-place- Alert Moves all extremities person Respiration - General Respiration Rate SpO2 (%) (B/min) 15 98 Chronological Log Time Study Chronological Log 10:16:49 Emergency Room notified that Costume Designer is ready. MD aware labs are not available. 10:24:54 Patient arrived via Bed. 10:24:54 Patient Name, D.O.B, / Armband Verified By R.N. 10:24:55 Consent signed by the physician and the patient and verified by the Costume Designer staff. 10:24:55 Pre-op and post- op instructions given; patient acknowledges understanding of instructions. 10:24:56 Presedation assessment performed by Costume Designer RN. 10:24:57 Immediate Presedation assesment performed by physician. 10:24:58 Patient has been NPO for More than 6Hrs. 10:24:58 Skin Breakdown- none per patient 10:25:00 Patient Warmer Placed on the Table. 10:25:01 Disposable Defibrillator Pads Placed On Patient. 10:25:02 Christophe Prominences Protected 10:25:03 A # 20 IV was noted in the Antecubital (left). Grade = 0 10:25:03 A # ~SIZE~ IV was noted in the ~SITE~. Grade = ~GRADE~ 10:25:04 Patient arrived on IV Solutions in Left Antecubital via Peripheral IV. Pump/Drip Flow = 20 ml/hr using NaCl .9. 10:25:05 History and physical on the chart or being dictated. 10:25:12 MD arrived. 10:29:54 50 mg BENADRYL given in lab by Cesario Rae RN in Left Antecubital via Peripheral IV. Ord ered by Ganesh Hall. 100 mg SOLU-CORTEF given in lab by Cesario Rae RN in Left Antecubital via Peripheral IV. Ord ered by Rafael, 10:29:58 Ganesh. Assessment: Initial Case, HR=87 BPM, Rhythm=stemi, AELV=309/84 mmhg, Chest Pain=9, Edema=None, Color=Normal, Skin = Warm, Dry 10:30:30 Right Pulses: Nathan Ped=2, Femoral=2, Radial=2 Neurological: State=Alert, Ox3, MORTON Respiration: Resp=15 B/min, SpO2=98 % Vitals capture started with the following parameters, Patient=Adult, Interval=5 min, Initial Pr methan=855 mmHg, 10:30:32 Deflation Rate=5 mmHg, Cuff placed on Left Arm 10:30:47 Reference ECG taken 10:31:48 HR=93 bpm, LAZK=221/84 mmhg, SpO2=97.0 %, Resp=13 B/min, Pain=0, Vijay=10, Plunkett=2 Time Out. Correct patient, correct procedure, correct physician, labs, allergies, and equipment verified with rn cardiac cath 10:32:04 team present. Fire risk assesment completed (see hard stop sheet for coding). Time Out Conc urred by MD and individual staff in procedure. 10:32:54 2 mg VERSED given in lab by Cesario Rae RN in Left Antecubital via Peripheral IV. Ordere d by Ganesh Hall. 10:32:59 50 mcg FENTANYL given in lab by Cesario Rae RN in Left Antecubital via Peripheral IV. Or dered by Ganesh Hall. 10:33:39 Case Start 10:33:40 2 mL 1% XYLOCAINE given in lab by Ganesh Hall in Right Radial via Subcutaneous. 10:34:36 Access site was Right Radial Artery . A SHEATH, FR6 RADIAL PRELUDE EASE 11CM FR 6 was advanced into the Radial (right) using the Perc utaneous 10:34:41 technique. 10:34:50 In the Radial (right) the SHEATH, FR6 RADIAL PRELUDE EASE 11CM FR [address] by Ganesh Hall. 10:34:58 Pressure channel 1 zeroed. 10:35:01 200 mcg NTG (IC) given in lab by Ganesh Hall in Right Radial via Intra-arterial. Ordered by Ganesh Hall. 10:35:36 5000 units HEPARIN given in lab by Cesario Rae RN in Left Antecubital via Peripheral IV. Ordered by Ganesh Hall. 10:36:03 1 mg VERSED given in lab by Cesario Rae RN in Left Antecubital via Peripheral IV. Ordere d by Ganesh Hall. 10:36:08 25 mcg FENTANYL given in lab by Cesario Rae RN in Left Antecubital via Peripheral IV. Or dered by Ganesh Hall. 10:36:12 HR=85 bpm, DLZF=723/94 mmhg, SpO2=97.0 %, Resp=13 B/min, Pain=0, Vijay=10, Plunkett=2 A JL 3.5 INFINITI CATHETER FR 5 was advanced over a wire. OMNIPAQUE, 350 MG, 150ML 150ML was us ed for 10:36:51 injections. 10:37:58 The LCA was injected and visualized at various angles. OMNIPAQUE, 350 MG, 150ML 150ML used . After removing the current catheter a JR 5.0 GUIDE CATHETER FR 6 was advanced over a WIRE, EXCH PAVEL 260CM 10:38:41 3MMJ 260CM. 10:40:18 The RCA was injected and visualized at various angles. OMNIPAQUE, 350 MG, 150ML 150ML used . 10:41:15 HR=92 bpm, NFYS=811/103 mmhg, SpO2=98.0 %, Resp=19 B/min, Pain=0, Vijay=10, Plunkett=2 10:46:10 HR=90 bpm, GXNY=678/98 mmhg, SpO2=98.0 %, Resp=14 B/min, Pain=0, Vijay=10, Plunkett=2 After removing the current catheter a PIGTAIL ANG. INFINITI CATHETER FR 4 was advanced over a W ELIZABETH, EXCHANGE 10:46:29 260CM 3MMJ 260CM. 10:48:13 The Asc. Aorta (A) was injected at 20 cc/sec for a total of 40. OMNIPAQUE, 350 MG, 50ML 50M L used. 10:49:46 NIBP STAT measurement started. After removing the current catheter a JR 5.0 GUIDE CATHETER FR 6 was advanced over a WIRE, EXCH PAVEL 260CM 10:49:52 3MMJ 260CM. 10:50:26 FI=454 bpm, CITT=021/103 mmhg, SpO2=99.0 %, Resp=18 B/min, Pain=0, Vijay=10, Plunkett=2 10.5 mL KENGREAL BOLUS given in lab by Joe Abebe, SEFERINO in Left Antecubital via Peripheral IV . Ordered by Rafael, 10:50:41 Ganesh. 10:50:56 Activated Clotting Time Drawn 10:52:12 HR=89 bpm, SVMV=545/100 mmhg, SpO2=98.0 %, Resp=18 B/min, Pain=0, Vijay=10, Plunkett=2 10:52:55 A WIRE, RUNTHROUGH NS FLOPPY .014 180CM 180CM was inserted via Radial (right). 3.851 mcg/kg/min KENGREAL DRIP given in lab by Jeo Abebe, SEFERINO in Left Antecubital via Perip heral IV. Pump/Drip 10:53:38 Flow = 84 ml/hr using NaCl .9 with a concentration of 50 mg in 250 ml. Ordered by Emily Hall 10:54:54 NIBP STAT measurement started. 10:55:15 Interventional wire has crossed the lesion 10:55:20 ACT (Normal Range 90-180) = 237 10:55:39 HR=94 bpm, NIBP=94/71 mmhg, SpO2=99.0 %, Resp=18 B/min, Pain=0, Vijay=10, Plunkett=2 10:57:52 1 mg VERSED given in lab by Cesario Rae RN in Left Antecubital via Peripheral IV. Ordere d by Ganesh Hall. 10:57:55 25 mcg FENTANYL given in lab by Cesario Rae, SEFERINO in Left Antecubital via Peripheral IV. Or dered by Ganesh Hall. 10:58:02 Unsure of distal wire positon, wire pulled back. 11:00:10 NIBP STAT measurement started. 11:01:11 HR=96 bpm, PIHY=298/106 mmhg, SpO2=96.0 %, Resp=15 B/min, Pain=0, Vijay=10, Plunkett=2 11:05:00 2 mg VERSED given in lab by Cesario Rae, RN in Left Antecubital via Peripheral IV. Ordere d by Ganesh Hall. 11:05:02 Ventricular Fibrillation noted. 11:05:03 Patient defibrillated at 200 joules. The ECG rhythm was noted as V-Fib. 11:06:08 Ventricular Fibrillation noted. 11:06:09 Patient defibrillated at 200 joules. The ECG rhythm was noted as V-Fib. 11:06:53 HR=88 bpm, FEIP=355/83 mmhg, SpO2=95.0 %, Resp=24 B/min, Pain=0, Vijay=10, Plunkett=2 A BALLOON, 2.5 X 20MM EUPHORA 20MM was inserted over WIRE, RUNTHROUGH NS FLOPPY .014 180CM 180C M via 11:06:56 the Radial (right). A BALLOON, 2.5 X 20MM EUPHORA 20MM over a WIRE, RUNTHROUGH NS FLOPPY .014 180CM 180CM in the RC A Dist 11:08:23 was inflated using a 30 ESTHELA INDEFLATOR at 6 esthela for 8 sec. A BALLOON, 2.5 X 20MM EUPHORA 20MM over a WIRE, RUNTHROUGH NS FLOPPY .014 180CM 180CM in the RC A Dist 11:08:39 was inflated using a 30 ESTHELA INDEFLATOR at 8 esthela for 5 sec. A BALLOON, 2.5 X 20MM EUPHORA 20MM over a WIRE, RUNTHROUGH NS FLOPPY .014 180CM 180CM in the RC A 11:08:55 Prox was inflated using a 30 ESTHELA INDEFLATOR at 8 esthela for 5 sec. A BALLOON, 2.5 X 20MM EUPHORA 20MM over a WIRE, RUNTHROUGH NS FLOPPY .014 180CM 180CM in the RC A 11:09:20 Prox was inflated using a 30 ESTHELA INDEFLATOR at 8 esthela for 5 sec. A BALLOON, 2.5 X 20MM EUPHORA 20MM over a WIRE, RUNTHROUGH NS FLOPPY .014 180CM 180CM in the RC A 11:09:35 Prox was inflated using a 30 ESTHELA INDEFLATOR at 8 esthela for 5 sec. 11:10:25 Balloon Removed. 11:11:11 HR=88 bpm, BQZH=810/96 mmhg, SpO2=94.0 %, Resp=26 B/min An STENT, 3.0 30 INTEGRITY 3.0 30 Bare Metal Stent was inserted through a JR 5.0 GUIDE CATHETER FR 6 over a 11:11:12 WIRE, RUNTHROUGH NS FLOPPY .014 180CM 180CM. A STENT, 3.0 30 INTEGRITY 3.0 30 was deployed using a 30 ESTHELA INDEFLATOR at 14 atmospheres for 1 0 seconds in 11:12:24 the RCA Dist. :13:06 Re-inflated the stent balloon in the RCA Mid to 12 ESTHELA for 10 seconds. :13:25 Re-inflated the stent balloon in the RCA Mid to 12 ESTHELA for 10 seconds. 11:14:28 Delivery device removed An STENT, 4.0 26 INTEGRITY 4.0 26 Bare Metal Stent was inserted through a JR 5.0 INFINITI MARK TER FR 5 over a 11:14:30 WIRE, RUNTHROUGH NS FLOPPY .014 180CM 180CM. A STENT, 4.0 26 INTEGRITY 4.0 26 was deployed using a 30 ESTHELA INDEFLATOR at 16 atmospheres for 1 0 seconds in 11:15:38 the RCA Mid. 11:16:13 Delivery device removed 11:16:14 HR=87 bpm, AUSN=736/90 mmhg, SpO2=97.0 %, Resp=16 B/min, Pain=0, Vijay=10, Plunkett=2 An STENT, 4.0 26 INTEGRITY 4.0 26 Bare Metal Stent was inserted through a JR 5.0 GUIDE CATHETER FR 6 over a 11:17:19 WIRE, RUNTHROUGH NS FLOPPY .014 180CM 180CM. A STENT, 4.0 26 INTEGRITY 4.0 26 was deployed using a 30 ESTHELA INDEFLATOR at 16 atmospheres for 8 seconds in the 11:17:44 RCA Mid. 11:18:29 Delivery device removed An STENT, 4.5 X 24MM REBEL MONORAIL 4.5 X 24MM Bare Metal Stent was inserted through a JR 5.0 G UIDE 11:19:06 CATHETER FR 6 over a WIRE, RUNTHROUGH NS FLOPPY .014 180CM 180CM. A STENT, 4.5 X 24MM REBEL MONORAIL 4.5 X 24MM was deployed using a 30 ESTHELA INDEFLATOR at 18 atmo spheres 11:19:41 for 8 seconds in the RCA Prox. 11:21:15 HR=91 bpm, OVMM=970/89 mmhg, SpO2=97.0 %, Resp=15 B/min, Pain=0, Vijay=10, Plunkett=2 11:21:27 Delivery device removed An STENT, 4.5 X 16MM REBEL MONORAIL 4.5 X 16MM Bare Metal Stent was inserted through a JR 5.0 G UIDE 11:23:34 CATHETER FR 6 over a WIRE, RUNTHROUGH NS FLOPPY .014 180CM 180CM. A STENT, 4.5 X 16MM REBEL MONORAIL 4.5 X 16MM was deployed using a 30 ESTHELA INDEFLATOR at 15 atmo spheres 11:24:21 for 6 seconds in the RCA Prox. 11:24:58 Anesthesia arrived. 0 mcg/kg/min KENGREAL DRIP given in lab by Cesario Rae, RN via Peripheral IV. Pump/Drip Flow = 0 ml/hr using 11:25:01 NaCl .9 with a concentration of 50 mg in 250 ml. Ordered by Ganesh Hall. 11:25:12 Delivery device removed 11:26:14 HR=90 bpm, ZEYP=725/92 mmhg, SpO2=98 %, Resp=12 B/min, Pain=0, Vijay=10, Plunkett=2 11:26:31 Wire removed 11:26:41 Catheter was removed 11:27:00 Case End (Physician broke scrub) 11:28:48 Activated Clotting Time Drawn 11:29:34 Called for stat echo. 11:31:17 HR=90 bpm, QRYO=176/71 mmhg, SpO2=95.0 %, Resp=18 B/min, Pain=0, Vijay=10, Plunkett=2 11:32:[address] Jovel regarding Aortic Dissection. 11:32:43 ACT (Normal Range 90-180) = 229 11:35:41 Echo arrived. 11:36:14 HR=88 bpm, PXVX=738/87 mmhg, SpO2=95.0 %, Resp=15 B/min, Pain=0, Vijay=10, Plunkett=2 11:37:11 NIBP STAT measurement started. 11:37:53 HR=80 bpm, JIST=103/79 mmhg, SpO2=95.0 %, Resp=22 B/min, Pain=0, Vijay=10, Plunkett=2 11:41:42 HR=83 bpm, ANKT=349/94 mmhg, SpO2=93.0 %, Resp=15 B/min, Pain=0, Vijay=10, Plunkett=2 11:46:19 HR=89 bpm, PEGB=644/72 mmhg, SpO2=94.0 %, Resp=24 B/min, Pain=0, Vijay=10, Plunkett=2 11:46:25 JUNIOR in progress, performed by Dr. Hall 11:49:06 NIBP STAT measurement started. 11:49:43 HR=70 bpm, FSRV=998/85 mmhg, SpO2=96.0 %, Resp=20 B/min, Pain=0, Vijay=10, Plunkett=2 11:51:20 HR=86 bpm, PFRV=460/90 mmhg, SpO2=97.0 %, Resp=15 B/min, Pain=0, Vijay=10, Plunkett=2 11:51:29 NIBP STAT measurement started. 11:52:07 HR=83 bpm, QTAV=981/67 mmhg, SpO2=95.0 %, Resp=14 B/min, Pain=0, Vijay=10, Plunkett=2 11:56:49 HR=77 bpm, XEGE=618/83 mmhg, SpO2=98.0 %, Resp=26 B/min, Pain=0, Vijay=10, Plunkett=2 A SHEATH, FR6 TRANSRADIAL SLENDER 10CM FR 6 was exchanged in the Radial (right). This was nece ssary in order 11:57:51 ~REASON~. PREVIOUS SHEATH KINKED. Assessment: Final Case, HR=74 BPM, Rhythm=stemi, EVPL=142/83 mmhg, Chest Pain=9, Edema=None, Color=Normal, Skin = Warm, Dry 11:59:51 Right Pulses: Nathan Ped=2, Femoral=2, Radial=2 Neurological: State=Alert, Ox3, MORTON Respiration: Resp=15 B/min, SpO2=98 % 11:59:57 NIBP STAT measurement started. 12:00:18 Catheter(s) removed without difficulty 12:00:20 Sterile dressing applied to site 12:00:25 Cine recording checked. 12:00:26 Bedside Report will be given. 12:00:27 Implantable Device card placed in patient's chart. 12:00:30 A Left Heart Cath was performed. 12:00:31 HR=73 bpm, TSVO=079/89 mmhg, SpO2=99 %, Resp=12 B/min, Pain=0, Vijay=10, Plunkett=2 12:01:38 HR=72 bpm, FKLF=415/86 mmhg, SpO2=99.0 %, Resp=23 B/min, Pain=0, Vijay=10, Plunkett=2 12:06:19 HR=66 bpm, QHCP=746/38 mmhg, SpO2=95.0 %, Resp=19 B/min, Pain=0, Vijay=10, Plunkett=2 Radial Compression Device Used. 10 mLs of air placed in BAND, RADIAL COMPRESSION TR SHORT 24 2 4CM. Affected 12:06:51 hand 98 % O2 saturation. 12:07:07 Patient moved to stretcher, and taken emergently to [facility] End Study - Contrast Media Used In Study Contrast Total Opened (mL) Total Used (mL) Total Wasted (mL) Omnipaque 350 160 160 0 End Study - Radiation Exposure Fluoro Time (minutes) 25.8 End Study - Patient Disposition Complications Transferred To Interventional Outcome No Operating Room successful
[2018-03-09] MEDS ORDERED: Heparin - SQ 10,000 UNITS/ML Vial ONE (12:10)
[2018-03-09 12:15] LABS: Creatine Kinase 56 U/L (26-192)
[2018-03-09] MEDS ORDERED: Iohexol 350 MG/ML 100 ML Vial (for Cath Lab) IVCONTRAST ONE (12:19)
[2018-03-09] MEDS ORDERED: Insulin Regular (For Infusion) 100 UNIT in Sodium Chlor 0.9% Inj 99 ML IV.CONT PRN ×2 (12:32→16:00)
--- NOTE | 2018-03-09 12:40 | ECHRPT ---
Indication: CONCLUSIONS Normal left ventricular size and wall thickness. The left ventricular systolic function is normal wi th an estimated ejection fraction in the range of 60-65%. Left ventricular diastolic function parameters a re normal. The ascending aorta was normal in size. 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 The dissection flap extends u p to the level of the right subclavian artery. The left carotid artery does not appear to be compromised. T he descending thoracic aorta was normal in size without evidence of dissection. BP: / HR: Rhythm: Technical Quality: Medications Complications Proc. Components The patient was brought to the diagnostic imaging area in a fasting state after o btaining an informed consent. The patient was premedicated with IV Versed and IV Fentanyl. The breastfeeding educator ior pharynx was sprayed with Cetacaine spray and the patient was administered viscous Xylocaine 2 %. The JUNIOR probe was passed into the posterior pharynx , mid-esophagus, distal esophagus, and gastric fundus. JUNIOR was performed at multiple levels. The patient tolerated the procedure well and there were no complications. FINDINGS LEFT VENTRICLE Normal left ventricular size and wall thickness. The left ventricular systolic function is normal wi th an estimated ejection fraction in the range of 60-65%. Left ventricular diastolic function parameters a re normal. RIGHT VENTRICLE Normal right ventricular size and systolic function. LEFT ATRIUM The left atrial size is normal. RIGHT ATRIUM The right atrial size is normal. ATRIAL SEPTUM Normal atrial septal thickness without atrial level shunting by limited color doppler interrogation. AORTA The ascending aorta was normal in size. 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 The dissection flap extends u p to the level of the right subclavian artery. The left carotid artery does not appear to be compromised. T he descending thoracic aorta was normal in size without evidence of dissection. MITRAL VALVE Structurally normal mitral valve. No mitral valve stenosis or regurgitation. AORTIC VALVE Trileaflet aortic valve. No aortic valve stenosis or regurgitation. TRICUSPID VALVE Structurally normal tricuspid valve. No tricuspid valve stenosis or regurgitation. VESSELS The inferior vena cava is normal in size. PULMONARY VALVE The pulmonary valve is not well visualized. PERICADIUM No pericardial effusion. Ganesh Hall MD, FACC (Electronically Signed) Final Date:09 March 2018 12:39
[2018-03-09] MEDS ORDERED: Potassium Chlor 40 mEq Premix 40 MEQ/100 ML PIGGYBACK ONE (12:44)
[2018-03-09] MEDS ORDERED: CUST1000P IRRIGATION ONE (12:44)
[2018-03-09] MEDS ORDERED: Albumin Human 25% Inj 50 ML IV.SIG ONE (12:45)
[2018-03-09] MEDS ORDERED: [UNRECOGNIZED DRUG - OTHER] IRRIGATION SCH ×2 (12:45)
[2018-03-09] MEDS ORDERED: VANCOMYCIN IRRIGATION SCH ×2 (12:45)
[2018-03-09] MEDS ORDERED: ceFAZolin Inj 500 MG, Sodium Chloride 0.9% Irr Bot 500 ML IRRIGATION SCH ×2 (12:45)
[2018-03-09] MEDS ORDERED: Calcium Chloride Inj 1 GM/10 ML Syringe ONE (12:46)
--- NOTE | 2018-03-09 12:48 | P.CONCA ---
History of Present Illness Service: Cardiology Consult date: 03/09/18 Reason for Consult: ST elevation myocardial infarction Primary Care Provider: UNKNOWN Chief Complaint: Severe chest pain radiating to her back History of Present Illness: This is a 52-year-old female with prior history of apparent remote coronary artery disease and myocardial infarction. She states she underwent a heart catheterization about 10 years ago without percutaneous coronary intervention. At that time she states she had medical management. She does not follow with a local hoop bender tank. Otherwise she is relatively healthy does have high blood pressure at times. She now presented to the emergency department with acute onset of severe 10/10 chest pain. Chest pain is in the middle of her chest and radiates towards her back scapular area. She describes it as a sharp shooting pain. Upon presentation to the emergency department electrocardiogram was obtained which showed inferior ST elevation myocardial infarction. Given the patient's presentation and symptoms she was sent emergently for computed tomography angiography of the chest to rule out aneurysm/dissection. Patient had a intravenous contrast dye allergy and computed tomography scan was aborted. At that time was elected to bring her directly to the cardiac catheterization lab. Review of Systems Cardiovascular: Reports chest pain, Reports fast heart rate, Reports shortness of breath PMFSH - History History Provided By: Patient - Medical History Medical History: Medical History (Last Reviewed 03/09/18 @ 10:08 by Christopher Felix) Heart attack Patient denies medical problems - Surgical History Surgical History: Surgical History (Last Reviewed 03/09/18 @ 10:08 by Christopher Felix) History of cardiac cath Status post surgical manipulation of ankle joint - Tobacco History Second Hand Smoke Exposure: No Smoking Status: Former smoker Tobacco Type: Cigarettes - Alcohol History How Often Do You Have a Drink Containing Alcohol: Never - Substance Use History Substance History: No History of Abuse - Travel History Recent Travel in the [place] Within the Last 8 Weeks: No Recent Travel Out of the Country Within the Last 8 Weeks: No Medications and Allergies Active Medications: Active Medications Sodium Chloride (Ns Inj) 1,000 mls @ 30 mls/hr IV.SIG .Q24H LAKESHA Stop: 03/10/18 10:14 Insulin Human Regular 100 unit (/ Sodium Chloride) 100 mls @ 3 mls/hr IV.CONT TITRATE PRN; Protocol PRN Reason: See Protocol Sodium Chloride (Ns Flush) 2 ml IV.FLUSH PRN PRN PRN Reason: FLUSH AFTER USING IV ACCESS Allergies Allergy/AdvReac Type Severity Reaction Status Date / Time amoxicillin Allergy Mild RED RASH Verified 03/09/18 11:23 iodine Allergy Mild Hives Verified 03/09/18 11:23 penicillin G Allergy Mild RED RASH Verified 03/09/18 11:23 potassium iodide Allergy Mild Hives Verified 03/09/18 11:23 povidone-iodine Allergy Mild Hives Verified 03/09/18 11:23 sodium iodide Allergy Mild Hives Verified 03/09/18 11:23 sodium iodide Allergy Mild Hives Verified 03/09/18 11:23 Sulfa (Sulfonamide Allergy Mild RED RASH Verified 03/09/18 11:23 Antibiotics) ALL CILLINS Allergy Severe Rash Uncoded 03/09/18 11:23 Exam Vital signs: Vital Signs 03/09/18 10:06 03/09/18 10:15 Temperature 98 F Pulse Rate 66 71 Respiratory Rate 18 18 Blood Pressure 138/96 H 170/129 H Pulse Oximetry 97 99 Intake & Output 03/08/18 03/09/18 03/09/18 18:59 06:59 18:59 Weight 72.575 kg - Constitutional severe distress - Routine HEENT Exam Head: Present: normocephalic Eye: Present: EOMI, PERRL ENT: Present: mucous membranes moist - Routine Neck Exam Present: supple, full ROM. Absent: JVD, carotid bruit - Routine Chest/Breast/Axilla Exam Chest wall: Absent: tenderness - Routine Respiratory Exam Present: CTA bilaterally - Routine Cardiovascular Exam Present: RRR, tachycardia. Absent: murmur - Routine Abdominal Exam Present: soft, normoactive bowel sounds - Routine Extremities Exam Present: pulses intact. Absent: edema - Routine Neurological Exam Present: alert, oriented X3, CN II-XII intact. Absent: sensory deficit, motor deficit Results 03/09/18 11:18 03/09/18 11:36 Cardiac Enzymes 03/09/18 03/09/18 Range/Units 11:18 11:18 Troponin I 0.16 H (0.02-0.05) ng/mL B-Natriuretic Peptide 33 (0-100) pg/mL Coagulation 03/09/18 Range/Units 11:18 B-Natriuretic Peptide 33 (0-100) pg/mL CBC 03/09/18 Range/Units 11:18 WBC 11.7 H (4.0-11.0) th/mm3 RBC 4.49 (4.00-5.30) mil/mm3 Hgb 13.5 (11.6-15.3) gm/dL Hct 39.5 (35.0-46.0) % Plt Count 227 (150-450) th/mm3 Neut # (Auto) 9.2 H (1.8-7.7) th/mm3 Lymph # (Auto) 1.7 (1.0-4.8) th/mm3 [place] # (Auto) 0.3 (0.0-0.9) th/mm3 Eos # (Auto) 0.4 (0.0-0.4) th/mm3 Baso # (Auto) 0.1 (0.0-0.2) th/mm3 Comprehensive Metabolic Panel 03/09/18 03/09/18 Range/Units 11:18 11:36 Sodium 134 L Cancelled (136-145) meq/L Potassium 3.8 Cancelled (3.5-5.1) meq/L Chloride 102 Cancelled (98-107) meq/L Carbon Dioxide 23.4 Cancelled (21.0-32.0) meq/L BUN 15 Cancelled (7-18) mg/dL Creatinine 0.51 Cancelled (0.50-1.00) mg/dL Calcium 7.8 L Cancelled (8.5-10.1) mg/dL Intake and Output 03/08/18 03/09/18 03/09/18 22:59 06:59 14:59 Other: Weight 72.575 kg Patient Weight 03/10/18 06:59 Weight 72.575 kg EKG interpretations - Dysrhythmias Sinus rhythms and dysrhythmias: sinus rhythm - LA, pacemaker, normal Myocardial infarction: inferior LA (acute or recent) Assessment and Plan - Assessment (1) Ascending aortic dissection Code(s): I71.01 - Dissection of thoracic aorta Status: Acute (2) Hypertension Code(s): I10 - Essential (primary) hypertension Status: Acute (3) Acute ST elevation myocardial infarction (STEMI) Code(s): I21.3 - ST elevation (STEMI) myocardial infarction of unspecified site Status: Acute - Plan Patient was taken emergently to the cardiac catheterization lab for attempted revascularization. Risks, benefits, and alternatives were discussed the patient. Patient was having severe ongoing chest pain. Patient does have inferior ST elevation myocardial infarction. The question remains whether this is thrombotic mediated or given her clinical symptoms suggestive of dissection, whether there is an ascending aortic dissection involving the origin of the right coronary artery with compromised flow. (3) Acute ST elevation myocardial infarction (STEMI) Qualifiers: Involved coronary artery: right coronary artery Qualified Code(s): I21.11 - ST elevation (STEMI) myocardial infarction involving right coronary artery
[2018-03-09] MEDS ORDERED: NITROGLYCERIN IRRIGATION SCH ×3 (13:00)
[2018-03-09] MEDS ORDERED: PAPAVERINE IRRIGATION SCH ×3 (13:00)
[2018-03-09] MEDS ORDERED: DILTIAZEM IRRIGATION SCH ×3 (13:00)
[2018-03-09] MEDS ORDERED: [UNRECOGNIZED DRUG - OTHER] IRRIGATION SCH ×3 (13:00)
--- NOTE | 2018-03-09 13:03 | P.PCN ---
Date of procedure: 03/09/18 Pre-op diagnosis: ST elevation myocardial infarction Post-op diagnosis: other (Acute ascending aortic dissection) Procedure: double end chucking machine operator: Tomasz Hall MD Procedure performed: 1. Fluoroscopy with interpretation 2. Coronary angiography 3. Ascending aortography 4. Percutaneous coronary intervention with bare-metal stents to the right coronary artery 5. Ventricular fibrillation status post defibrillation x2 with successful scientologist of sinus rhythm Methods: Risks, benefits, and alternatives were discussed with the patient. Patient understood and consented to the procedure. Patient was brought into the cardiac catheterization lab and placed to the catheterization table. Right wrist and right groin were prepped and draped in a sterile fashion. Right wrist was anesthetized with 2% lidocaine. Right radial artery was cannulated and a 6 Spanish 11 cm sheath was placed without difficulty. 200 mcg of intra- arterial nitroglycerin was administered. Coronary angiography: Left coronary circulation was selectively engaged with a 6 Spanish JL 3.5 diagnostic catheter. Right coronary circulation was selected engaged with a 6 Spanish JR 5 guide catheter. 1. Left main coronary is angiographically normal 2. The left anterior descending coronary artery is somewhat tortuous but angiographically normal. There is a small diagonal branch is radiographically normal. 3. Left circumflex coronary artery is angiographically normal. 4. The right coronary artery is a dominant vessel giving rise to the posterior descending branch. The proximal right coronary artery had some haziness in appearance in addition to the mid to distal segment just proximal to the bifurcation of the posterior descending branch. There did not appear to be a clear culprit lesion for the patient's symptoms and persistent ST elevation inferiorly. Ascending aortography: Ascending aortography is performed in the left anterior oblique view using a 40 cc contrast injection with reasonable opacification. The ascending aorta was not well visualized but no obvious aneurysm was present. No obvious double density sign was visualized. No aortic regurgitation noted. Percutaneous coronary intervention: Patient continued to have ongoing worsening symptoms. Patient developed worsened ST elevation inferiorly. At this point we decided to reinvestigate the right coronary artery. We selected the right coronary artery gently and with a few test puffs noted that there was now occlusion of the proximal segment. Angiography revealed a dissection which had propagated from the proximal segment of the right coronary artery and spiral down the entire length of the right coronary artery compromising flow. The patient's ST segment elevation on telemetry continued to worsen. The patient developed 2 episodes of ventricular fibrillation arrest requiring defibrillation with biphasic 200 J and successful scientologist to sinus rhythm. Patient continued to have ongoing chest pain. At this point we called for immediate cardiothoracic surgical consultation. The operating room was prepped. Anesthesia was contacted. Given her rapid decompensation, we elected to attempt to establish flow down the right coronary artery. A 0.014 inch 180 cm Terumo run through wire was then navigated carefully down to the distal posterior descending branch. We were careful not to propagate the dissection flap. I was able to selectively engage several small sub-branches within the posterior descending branch, which was reassuring that I was in the true lumen of the vessel. A 2.5 x 20 mm you for balloon was then navigated down to the mid segment of the posterior descending branch and a daughter technique. Repeat angiography showed improved flow distally suggestive again that we were in the true lumen. At this point we elected to proceed with balloon angioplasty from the proximal posterior descending branch all the way through to the proximal right coronary artery. Post angioplasty, there was still compromised flow. At this point we elected to proceed with endovascular stenting. A 3.0 x 30 mm bare-metal stent was then deployed in the proximal posterior descending branch extending into the distal right coronary artery. A second 4.0 x 26 mm bare-metal stent was then deployed in the distal right coronary artery with minimal stent overlap. A 4.0 x 26 mm bare-metal stent was then deployed in the mid segment with minimal stent overlap. A 4.5 x 24 mm bare-metal stent was then deployed in the proximalmid segment with minimal stent overlap. Finally, a 4.5 x 16 mm bare-metal stent was then advanced back to the ostium of the right coronary artery and deployed. Repeat angiography now showed scientologist of NELLY II flow out to the distal posterior descending branch. Patient's ST segment elevation improved, but the patient continued to have ongoing worsening symptoms. We will are able to visualize contrast staining within the dissection of the false lumen in the ascending arch which had propagated down the right coronary artery. Given the patient's ongoing symptoms and suspected ascending aortic dissection propagating down the right coronary artery, we elected to proceed with transesophageal echocardiogram. Cardiothoracic surgery was present to discuss the case and reviewed the transesophageal echocardiogram results. Transesophageal echocardiogram revealed an ascending aortic dissection with probable flap just above the sinotubular junction propagating back to the origin of the right subclavian artery. Patient was prepped to go to the operating room emergently for aortic root replacement. Conclusions: 1. Acute inferior ST elevation myocardial infarction secondary to a ascending aortic dissection with propagation down the right coronary artery 2. Successful percutaneous coronary intervention with bare-metal stents to reestablish flow in the right coronary artery Plan: Case discussed with cardiothoracic surgery at the bedside along with anesthesia. Patient will be prepped and taken emergently to the operating room for planned aortic root replacement. Patient is in critical condition. Condition: critical Disposition: other (Operating room)
[2018-03-09 13:05] LABS: Activated Partial Thrombo Time 48.8 sec (23.4-31.7); INR 1.1 Ratio; Prothrombin Time 10.7 sec (9.8-11.6)
[2018-03-09] MEDS ORDERED: Protamine Sulfate Inj 250 MG/25 ML Vial ONE (14:28)
[2018-03-09] MEDS ORDERED: Clevidipine Inj 25 MG/50 ML VIAL ONE (14:49)
[2018-03-09] MEDS ORDERED: Dextrose 50% in Water 50 ML Vial IV.PUSH PRN (15:33)
[2018-03-09] MEDS ORDERED: Post-op Orders (for Pharmacy) OTHER STA (15:33)
[2018-03-09] MEDS ORDERED: Dexmedetomidine Inj 200 MCG in Sodium Chlor 0.9% Inj 48 ML IV.CONT PRN (15:33)
[2018-03-09] MEDS ORDERED: Potassium Chlor 20 mEq Premix 20 MEQ/100 ML PIGGYBACK IV.SIG PRN ×2 (15:33)
[2018-03-09] MEDS ORDERED: Albumin Human 5% Inj 250 ML IV.SIG PRN (15:33)
[2018-03-09] MEDS ORDERED: Magnesium Sulfate Inj 2 GM in Sodium Chlor 0.9% Inj 96 ML IV.SIG PRN ×4 (15:33)
[2018-03-09] MEDS ORDERED: Calcium Chloride Inj 1 GM in Sodium Chlor 0.9% Inj 100 ML IV.SIG PRN (15:33)
[2018-03-09] MEDS ORDERED: Metoprolol Inj 5 MG/5 ML Vial IV.PUSH PRN (15:33)
[2018-03-09] MEDS ORDERED: Calcium Chloride Inj 1 GM/10 ML Syringe IV.PUSH PRN (15:33)
--- NOTE | 2018-03-09 15:44 | ECG ---
Date Performed: 03/09/2018 Time Performed: 10:04:41 PTAGE: 52 years EKG: Sinus rhythm LOW QRS VOLTAGE IN EXTREMITY LEADS MARKED ST ELEVATION, CONSIDER INFERIOR INJURY ACUTE CA PREVIOUS TRACING :04/23/2015 @20.15 Compared to previous tracing, there is evidence of an acute inferior Myocardial infarction DOCTOR: Chintan Madison Interpretating Date/Time 03/09/2018 15:43:41
--- NOTE | 2018-03-09 15:58 | P.OP ---
- Preoperative Diagnosis (1) Acute ST elevation myocardial infarction (STEMI) (2) Ascending aortic dissection Postoperative Diagnosis: same Date of procedure: 03/09/18 Procedure: Median sternotomy for repair of Type A aortic dissection Left groin cut down for femoral arterial cannulation JUNIOR Implants: 26 Hemashield graft Anesthesia: GETA Surgeon: Chery Jovel MD Soda Flaker: Michaela Wilder Pathology: other (Aorta) Operation and Findings: Drains: mediastinal x 1 Specimens: ascedning aorta Complications: none Disposition: to CVICU in stable condition Procedure Details The patient was seen in the film laboratory technician and a Type A aortic dissection was confirmed by JUNIOR following her presentation with an inferior STEMI. The RCA was stented prior to her going to the OR. The risks, benefits, complications, treatment options, and expected outcomes were discussed with the patient's . The possibilities of reaction to medication, pulmonary aspiration, perforation of viscus, bleeding, recurrent infection, the need for additional procedures, failure to diagnose a condition, and creating a complication requiring transfusion or operation were discussed with the patient. The patient concurred with the proposed plan, giving informed consent. The site of surgery properly noted/marked. The patient was taken to Operating Room, identified as Olga Roland and the procedure verified as Repair of Type A dissection, JUNIOR. A Time Out was held and the above information confirmed. Cross-clamp time 54 minutes Cardiopulmonary bypass time 73 minutes Drains 36 Malian mediastinal tube Findings: The patient had a Type A dissection. No entry point was identified in the root or ascending aorta, but there was a significant intimal flap involving the entire ascending aorta to the RCA. Disposition: The patient was transferred to the CVICU in stable, but guarded condition. Operation in detail: After adequate general anesthesia, the patient was prepped and draped in the usual manner. A median sternotomy was performed and electrocautery was used to obtain hemostasis. The pericardium was opened and the patient was heparinized for cardiopulmonary bypass. The left femoral artery was cannulated after a cut down in the left groin. JUNIOR was used to confirm the guide wire was in the true lumen prior to cannulation. The heart was instrumented for cardiopulmonary bypass in the usual manner otherwise. Antegrade and retrograde Custodiol cardioplegia were used. The left ventricle was vented through the right superior pulmonary vein. The patient was placed on cardiopulmonary bypass. An aortic cross-clamp was applied and the heart was arrested using cold blood antegrade and retrograde cardioplegia. Antegrade cardioplegia was administered directly into the coronary ostia after opening the aorta. The valve was found to be trileaflet with minimal calcification. There was an obvious dissection with an intimal flap from just above the RCA to the aortic crossclamp. The aorta was transected above the sinotubular junction and the ascending aorta was resected to the proximal arch. The false lumen was obliterated proximally and distally with bioglue. The aorta was sized to a 32 Hemashield graft and the proximal anastomosis was performed using a running 4-0 prolene suture. The distal anastomosis was performed in a similar manner. An opening was then made in the graft anteriorly to place an aortic vent through a 4-0 prolene pledgeted [facility] mattress suture. Bioglue was used to seal needle holes. The patient was placed in steep Trendelenburg position. The aorta and left ventricle were vented and the aortic cross-clamp was removed for a total cross- clamp time of 54 minutes. The heart resumed a bradycardic rhythm which eventually converted to a sinus rhythm after several minutes. The heart was filled allowed to eject. The aorta was then assessed by intraoperative JUNIOR. There was no flow detected in the false lumen.. Left ventricular function was noted to be ~50% with some inferior wall hypokinesis. The patient was weaned from cardiopulmonary bypass for total bypass run of 73 minutes. Protamine was administered to reverse the heparin and all cannulae were removed without incident. The left groin was closed in 2 layers after infiltrating the area with 0.5% marcaine. A 36 Malian mediastinal tube was positioned and secured to the skin with a 0 silk suture. The operative field was then examined again for hemostasis which was obtained using electrocautery. The wound was then closed in layers by approximating the sternal tables with interrupted number 6 stainless steel wires following which the presternal fashion was approximately around a 1. PDS suture. The wound was copiously irrigated. The subcutaneous tissue was approximated using a running 2-0 Vicryl suture and the skin was approximated with running 4-0 Monocryl subcuticular stitch. All sponge and instrument counts were correct at the close of the procedure and the patient was transported the CVICU in stable, but guarded condition. Chery Jovel M.D., FJosé Miguel., [place].
[2018-03-09] MEDS ORDERED: RESP: Racemic Epinephrine 2.25% 0.5 ML Neb NEB PRN (16:00)
[2018-03-09] MEDS: Clevidipine Inj 25 MG/50 ML VIAL IV.CONT PRN ×2 (16:20→20:00)
--- NOTE | 2018-03-09 16:32 | P.CONCC ---
History of Present Illness Service: Critical care medicine Consult date: 03/09/18 Requesting Physician: Michaela Wilder Reason for Consult: hemodynamic management Primary Care Provider: UNKNOWN Chief Complaint: Severe chest pain radiating to her back History of Present Illness: 52yF who presented with inferior STEMI, taken to dentures lab technician by Dr. Hall. during cath, noted RCA dissection which was immediately stented. after this, noted ascending aortic dissection. discussed with Dr. Jovel and taken emergently to OR. I was asked to assist with the JUNIOR evaluation and hemodynamic management in the perioperative period. I evaluated the patient in the OR immediately after induction of anesthesia. I placed JUNIOR probe for perioperative monitoring and decision-making as well as formal evaluation of ventricular function and evaluation of the evolution of the dissection for operative decisionmaking (see separate procedure note for details). Patient underwent ascending aortic repair (valve/root sparing). Patient arrived to the CVICU in intubated condition, on clevidipine. adequate uop intra-operatively. chest tube output over first hour was 80mL which improved to 30mL second hour. lactate clearing. ROS unobtainable due to clinical condition. Review of Systems unobtainable due to endotracheal tube, unobtainable due to mental condition, unobtainable due to mental status PMFSH - History History Provided By: Medical Record - Medical / Surgical Hx Neg / Unobtainable Medical Problems Denied: Unable to Obtain Surgical History: Unable to Obtain - Medical History Medical History: Medical History (Last Reviewed 03/09/18 @ 21:56 by Jessu Pepe MD) Heart attack Patient denies medical problems - Surgical History Surgical History: Surgical History (Last Reviewed 03/09/18 @ 21:56 by Jesus Pepe MD) History of cardiac cath Status post surgical manipulation of ankle joint - Family History Family History: Family History (Last Updated 03/09/18 @ 21:57 by Jesus Pepe MD) Other Family history non-contributory - Social History I have reviewed the patient's Social History: Yes - Tobacco History Second Hand Smoke Exposure: No Smoking Status: Former smoker Tobacco Type: Cigarettes - Alcohol History How Often Do You Have a Drink Containing Alcohol: Never - Substance Use History Substance History: No History of Abuse - Travel History Recent Travel in the [place] Within the Last 8 Weeks: No Recent Travel Out of the Country Within the Last 8 Weeks: No Medications and Allergies Active Medications: Active Medications Albuterol (Duoneb Neb (Prn)) 1 ampul NEB Q2HR NEB PRN PRN Reason: WHEEZING Albuterol (Duoneb Neb (Reji)) 1 ampul NEB Q6HR NEB REJI Amiodarone HCl (Cordarone) 400 mg PO Q8HR [facility] Aspirin (Aspirin Chew) 81 mg PO DAILY [facility] Calcium Chloride (Calcium Chloride Inj) 0.5 gm IV.PUSH UNSCH PRN PRN Reason: SEE LABEL COMMENTS Vancomycin HCl 1,000 mg/ (Sodium Chloride 1,000 ml) 0 mg [employer]SPORTATION CONSULTANT [facility] Last Admin: 03/09/18 13:33 Dose: 1 irrig.soln Dextrose (D50w Vial) 50 ml IV.PUSH UNSCH PRN PRN Reason: PER HYPOGLYCEMIA PROTOCOL Epinephrine (Racepinephrine 2.25% Neb) 0.5 ml NEB UNSCH X1 PRN PRN Reason: STRIDOR Fentanyl Citrate (Fentanyl Inj) 25 mcg IV.PUSH Q1H PRN PRN Reason: BREAKTHROUGH PAIN Sodium Chloride (Ns Inj) 1,000 mls @ 30 mls/hr IV.SIG .Q24H [facility] Stop: 03/10/18 10:14 Papaverine HCl 60 mg/Nitroglycerin 100 mcg/Diltiazem HCl 100 mg/ Sodium Chloride 100 mls @ 0 mls/hr [employer]SP[employer] [facility] Acetaminophen (Ofirmev Inj) 1,000 mg in 100 mls @ 400 mls/hr IV.SIG Q6H REJI Stop: 03/10/18 10:14 Albumin Human (Buminate 5% Inj) 250 mls @ 250 mls/hr IV.SIG UNSCH PRN PRN Reason: SEE LABEL COMMENTS Clevidipine (Cleviprex Inj) 25 mg in 50 mls @ 2 mls/hr IV.CONT TITRATE PRN; Protocol PRN Reason: Per protocol Dexmedetomidine HCl 200 mcg/ (Sodium Chloride) 50 mls @ 3.62 mls/hr IV.CONT TITRATE PRN; Protocol PRN Reason: Per Protocol Insulin Human Regular 100 unit (/ Sodium Chloride) 100 mls @ 3 mls/hr IV.CONT TITRATE PRN; Protocol PRN Reason: See Protocol Lactated Ringer's (Lr 1000 Ml Inj) 500 mls @ 500 mls/hr IV.SIG .Q1H PRN PRN Reason: SEE LABEL COMMENTS Magnesium Sulfate 2 gm/ Sodium (Chloride) 100 mls @ 50 mls/hr IV.SIG PRN PRN PRN Reason: SEE LABEL COMMENTS Potassium Chloride (Kcl 20 Meq Premix Inj) 20 meq in 100 mls @ 50 mls/hr IV.SIG PRN PRN PRN Reason: SEE LABEL COMMENTS Potassium Chloride (Kcl 20 Meq Premix Inj) 20 meq in 100 mls @ 50 mls/hr IV.SIG PRN PRN PRN Reason: SEE LABEL COMMENTS Potassium Chloride (Kcl 20 Meq Premix Inj) 20 meq in 100 mls @ 50 mls/hr IV.SIG PRN PRN PRN Reason: SEE LABEL COMMENTS Vancomycin HCl 1,000 mg/ (Sodium Chloride) 250 mls @ 250 mls/hr IV.SIG Q12H REJI Stop: 03/10/18 16:59 Calcium Chloride 1 gm/ Sodium (Chloride) 110 mls @ 100 mls/hr IV.SIG PRN PRN PRN Reason: SEE LABEL COMMENTS Magnesium Sulfate 2 gm/ Sodium (Chloride) 100 mls @ 50 mls/hr IV.SIG PRN PRN PRN Reason: SEE LABEL COMMENTS Ketorolac Tromethamine (Toradol Inj) 15 mg IV.PUSH Q6H PRN PRN Reason: SEE LABEL COMMENTS Stop: 03/11/18 15:59 Metoprolol Tartrate (Lopressor Inj) 2.5 mg IV.PUSH Q1H PRN PRN Reason: SEE LABEL COMMENTS Ondansetron HCl (Zofran Inj) 4 mg IV.PUSH Q6H PRN PRN Reason: NAUSEA OR VOMITING Oxycodone/Acetaminophen (Percocet 5/325 Mg) 1 tab PO Q3H PRN PRN Reason: PAIN SCALE 1 TO 5 IF BRUNO PO Pantoprazole Sodium (Protonix) 40 mg PO DAILY@06 REJI Phenylephrine HCl (Neosynephrine Inj) 0.1 mg IV.PUSH UNSCH PRN PRN Reason: SEE LABEL COMMENTS Potassium Chloride (K-Dur) 40 meq PO UNSCH PRN PRN Reason: SEE LABEL COMMENTS Potassium Chloride (K-Dur) 20 meq PO UNSCH PRN PRN Reason: SEE LABEL COMMENTS Sodium Bicarbonate (Sodium Bicarbonate 8.4% Inj) 50 meq IV.PUSH UNSCH PRN PRN Reason: SEE LABEL COMMENTS Sodium Bicarbonate (Sodium Bicarbonate 8.4% Inj) 100 meq IV.PUSH UNSCH PRN PRN Reason: SEE LABEL COMMENTS Sodium Chloride (Ns Flush) 2 ml IV.FLUSH PRN PRN PRN Reason: FLUSH AFTER USING IV ACCESS Sodium Chloride (Ns Flush) 2 ml IV.FLUSH BID REJI Sodium Chloride (Ns Flush) 2 ml IV.FLUSH PRN PRN PRN Reason: FLUSH AFTER USING IV ACCESS Allergies Allergy/AdvReac Type Severity Reaction Status Date / Time amoxicillin Allergy Mild RED RASH Verified 03/09/18 11:23 iodine Allergy Mild Hives Verified 03/09/18 11:23 penicillin G Allergy Mild RED RASH Verified 03/09/18 11:23 potassium iodide Allergy Mild Hives Verified 03/09/18 11:23 povidone-iodine Allergy Mild Hives Verified 03/09/18 11:23 sodium iodide Allergy Mild Hives Verified 03/09/18 11:23 sodium iodide Allergy Mild Hives Verified 03/09/18 11:23 Sulfa (Sulfonamide Allergy Mild RED RASH Verified 03/09/18 11:23 Antibiotics) ALL CILLINS Allergy Severe Rash Uncoded 03/09/18 11:23 Physical Exam Vital signs: Vital Signs 03/09/18 10:06 03/09/18 10:15 Temperature 36.6 C Pulse Rate 66 71 Respiratory Rate 18 18 Blood Pressure 138/96 H 170/129 H Pulse Oximetry 97 99 Intake & Output 03/08/18 03/09/18 03/09/18 18:59 06:59 18:59 Intake Total 3250 / 3250 Output Total 3100 / 3100 Balance 150 / 150 Weight 72.575 kg Intake: Anesthesia Amount 2500 / 2500 Cell Saver Amount 750 / 750 Output: Estimated Blood Loss 1500 / 1500 Urine Amount (Catheter) 1600 / 1600 Indwelling Temp Sensing 1600 / 1600 Catheter Narrative: GENERAL: Middle-aged female, lying in bed, intubated, sedated, critically ill HEENT: Normocephalic. Atraumatic. Pupils equal, round, reactive, conjugate. Mucous membranes are moist NECK: Trachea is midline. There is no JVD. Right IJ introducer sheath in place , site intact with oozing around the site. CHEST: Midline sternal incision with dressing intact. 2 chest tubes exit subxiphoid with minimal amount of sanguinous output. Equal chest rise. PRVC. FiO2 40%. PEEP of 5. CARDIOVASCULAR: Slightly tachycardic rate in the low 100s, regular rhythm. Sinus. On Clevidipine. Systolic blood pressure 104. ABDOMEN: Soft, nontender, nondistended. No guarding. MUSCULOSKELETAL: Pulses 2+. No peripheral edema. NEUROLOGICAL: RASS -2. Arouses and moves all extremities. Follows commands weakly. No focal deficits. - Urinary Catheter Management Indwelling Temp Sensing Catheter Cath placed during this visit: yes Reason for continuing: Hourly intake/output Insertion date: 03/09/18 Insertion time: 12:25 Assessment and Plan - Assessment and Plan Plan: Assessment: 52-year-old female with inferior RCA STEMI and type a dissection now postop day 0 status post emergent ascending aortic repair. Active Problems: inferior STEMI s/p PCI to RCA RCA dissection Type A dissection s/p emergent ascending aortic repair 03/09 Plan: - check cbc, coags, fibrinogen, lactate - trend lactate and uop - watch chest tube output closely - fibrinogen likely to be low. low threshold for transfusion of cryo - wean mechanical ventilation. if end-points of resuscitation are adequate, ok to extubate on pathway - needs DAPT to start for PCI. will allow Dr. Hall and Becka to guide that therapy. - frequent neuro checks - stat carotid dopplers to rule out carotid dissection - would ideally like to obtain CTA aortogram tomorrow if stable - if lactate rising or any abdominal pain, low threshold for earlier imaging, as unclear how distal dissection extends - frequent peripheral neurovascular checks - goal SBP 100 - 120 - tolerate tachycardia in the setting of recent cardiopulmonary bypass, STEMI-- likely cardiac output may be rate dependent for first 12-24h. will plan to add beta blockade POD 1. Critical care medicine will continue to follow while patient remains in the CVICU. Critical care time: 68 minutes, exclusive of separately billable procedures.
[2018-03-09] MEDS ORDERED: fentaNYL Citrate Inj 250 MCG/5 ML Ampul ONE ×2 (16:38)
[2018-03-09] MEDS: Potassium Chlor 20 mEq Premix 20 MEQ/100 ML PIGGYBACK IV.SIG PRN ×2 (16:41→22:25)
[2018-03-09] MEDS: Vancomycin Inj 1,000 MG in Sodium Chlor 0.9% Inj 250 ML IV.SIG SCH (16:49)
[2018-03-09 16:53] LABS: Baso # (Auto) 0.1 th/mm3 (0.0-0.2); Baso % (Auto) 0.3 % (0.0-2.0); Eos # (Auto) 0.1 th/mm3 (0.0-0.4); Eos % (Auto) 0.3 % (0.0-4.0); Hematocrit 41.3 % (35.0-46.0); Hemoglobin 14.1 gm/dL (11.6-15.3); Lymph # (Auto) 1.4 th/mm3 (1.0-4.8); Lymph % (Auto) 5.7 % (9.0-44.0); Mean Corpuscular HGB Conc 34.1 % (32.0-36.0); Mean Corpuscular Hemoglobin 31.1 pg (27.0-34.0); Mean Platelet Volume 9.1 fL (7.0-11.0); Mono # (Auto) 0.4 th/mm3 (0.0-0.9); Mono % (Auto) 1.7 % (0.0-8.0); Neut # (Auto) 23.4 th/mm3 (1.8-7.7); Platelet Count 134 th/mm3 (150-450); Red Blood Count 4.54 mil/mm3 (4.00-5.30); Red Cell Distribution Width 13.8 % (11.6-17.2); White Blood Count 25.5 th/mm3 (4.0-11.0)
[2018-03-09 17:02] LABS: Activated Partial Thrombo Time 26.1 sec (23.4-31.7); INR 1.2 Ratio; Prothrombin Time 11.7 sec (9.8-11.6)
--- NOTE | 2018-03-09 17:05 | XR ---
EXAM DATE: 03/09/2018 4:57 PM EST AGE/SEX: 52 years / Female INDICATIONS: Post CABG. CLINICAL DATA: This is the patient's subsequent encounter. Patient reports that signs and symptoms h ave been present for 1 day and indicates a pain score of Nonresponsive. MEDICAL/SURGICAL HISTORY: Non-responsive. Non-responsive. COMPARISON: [facility], CHEST SINGLE AP, 04/23/2015. . FINDINGS: Endotracheal tube is present with tip 6 cm above the hieu. Nasogastric tube descends into the stoma ch. A midline chest tube is noted. Right neck sheath and central catheter present in good position. T here is mild interstitial edema and minimal bilateral atelectasis in the left lung base. Sternotomy w ires are noted. Mediastinal contours are satisfactory. CONCLUSION: Satisfactory postop appearance Electronically signed by: Bob Reyna MD 03/09/2018 5:04 PM EST
[2018-03-09 17:18] LABS: Anion Gap 5 meq/L (5-15)
[2018-03-09 17:28] LABS: Alanine Aminotransferase 16 U/L (10-53); Albumin 2.5 g/dL (3.4-5.0); Alkaline Phosphatase 49 U/L (45-117); Aspartate Aminotransferase 56 U/L (15-37); Blood Urea Nitrogen 12 mg/dL (7-18); Calcium 6.8 mg/dL (8.5-10.1); Carbon Dioxide 26.6 meq/L (21.0-32.0); Chloride 109 meq/L (98-107); Glomerular Filtration Rate Greater Than 89 mL/min (>89); Glucose,Random 138 mg/dL (74-106); Magnesium 2.5 mg/dL (1.5-2.5); Potassium 3.9 meq/L (3.5-5.1); Sodium 141 meq/L (136-145)
[2018-03-09] MEDS: Ketorolac Inj 30 MG/ML (IVP) Vial IV.PUSH PRN ×2 (18:00→23:58)
--- NOTE | 2018-03-09 18:56 | US ---
EXAM DATE: 03/09/2018 6:50 PM EST AGE/SEX: 52 years / Female INDICATIONS: Dissection. CLINICAL DATA: This is the patient's initial encounter. Patient reports that signs and symptoms have been present for 1 day and indicates a pain score of 0/10. MEDICAL/SURGICAL HISTORY: Myocardial infarction. . Cardiac cath. Surgical manipulation of ankle joint. COMPARISON: No prior exams available for comparison. VELOCITY PARAMETERS: ICA/CCA Ratio: Right . , Left 1.0 ICA: Right . cm/sec, Left 88 cm/sec CCA: Right . cm/sec, Left 89 cm/sec ECA: Right . cm/sec, Left 48 cm/sec Vertebral: Right . cm/sec absent, Left . cm/sec absent FINDINGS: Significantly limited examination due to patient's inability to cooperate with exam. Right Carotid: Not sufficiently visualized. Left Carotid: Abnormal appearance of the common carotid artery with apparent intimal flap and long s egment dissection which does not appear to extend beyond the carotid bulb on grayscale imaging. Flow is demonstrated in the proximal to mid false lumen. The waveforms are grossly within normal limits. Other: None. CONCLUSION: 1. Extremely Limited examination with nonvisualization of the right carotid artery. 2. Findings concerning for left common carotid dissection. Recommend carotid CT angiography for furt her evaluation. Electronically signed by: Onel Gannon MD 03/09/2018 6:55 PM EST
[2018-03-09] MEDS: Amiodarone 200 MG Tablet PO SCH (21:13)
[2018-03-10] MEDS: fentaNYL Citrate Inj 100 MCG/2 ML Ampul IV.PUSH PRN ×5 (02:11→23:49)
[2018-03-10] MEDS: Vancomycin Inj 1,000 MG in Sodium Chlor 0.9% Inj 250 ML IV.SIG SCH ×2 (03:24→16:54)
[2018-03-10] MEDS: Clevidipine Inj 25 MG/50 ML VIAL IV.CONT PRN (03:48)
[2018-03-10 05:11] LABS: Hemoglobin 12.6 gm/dL (11.6-15.3); Mean Corpuscular HGB Conc 33.9 % (32.0-36.0); Mean Corpuscular Volume 88.5 fL (80.0-100.0); Mean Platelet Volume 9.8 fL (7.0-11.0); Platelet Count 161 th/mm3 (150-450); Red Blood Count 4.18 mil/mm3 (4.00-5.30); Red Cell Distribution Width 13.7 % (11.6-17.2); White Blood Count 17.7 th/mm3 (4.0-11.0)
[2018-03-10 05:38] LABS: Anion Gap 6 meq/L (5-15); Blood Urea Nitrogen 15 mg/dL (7-18); Calcium 7.5 mg/dL (8.5-10.1); Carbon Dioxide 26.7 meq/L (21.0-32.0); Chloride 107 meq/L (98-107); Glomerular Filtration Rate Greater Than 89 mL/min (>89); Glucose,Random 122 mg/dL (74-106); Magnesium 1.8 mg/dL (1.5-2.5); Potassium 4.2 meq/L (3.5-5.1); Sodium 140 meq/L (136-145)
[2018-03-10] MEDS ORDERED: Magnesium Sulfate Inj 2 GM in Sodium Chlor 0.9% Inj 96 ML IV.SIG ONE (05:57)
--- NOTE | 2018-03-10 05:59 | P.PNCC ---
Subjective Subjective Remarks/Hospital Course: Hospital Course: 52yF who presented with inferior STEMI, taken to collaborative physician by Dr. Hall. during cath, noted RCA dissection which was immediately stented. after this, noted ascending aortic dissection. discussed with Dr. Jovel and taken emergently to OR. I was asked to assist with the JUNIOR evaluation and hemodynamic management in the perioperative period. I evaluated the patient in the OR immediately after induction of anesthesia. I placed JUNIOR probe for perioperative monitoring and decision-making as well as formal evaluation of ventricular function and evaluation of the evolution of the dissection for operative decisionmaking (see separate procedure note for details). Patient underwent ascending aortic repair (valve/root sparing). Patient arrived to the CVICU in intubated condition, on clevidipine. adequate uop intra-operatively. chest tube output over first hour was 80mL which improved to 30mL second hour. lactate clearing. ROS unobtainable due to clinical condition. Subjective: 03/10: extubated yesterday. neuro intact. carotid doppler suggestive of left carotid dissection. lactate cleared. uop adequate. chest tubes now with minimal output. Objective Vital Signs / I&O: Vital Signs 03/09/18 10:06 03/09/18 10:15 03/09/18 16:20 Temperature 36.6 C 36.3 C L Pulse Rate 66 71 66 Respiratory Rate 18 18 12 Blood Pressure 138/96 H 170/129 H 105/63 Pulse Oximetry 97 99 99 03/09/18 17:20 03/09/18 17:24 03/09/18 17:28 Temperature Pulse Rate 94 H Respiratory Rate Blood Pressure Pulse Oximetry 94 L 96 03/09/18 18:20 03/09/18 18:31 03/09/18 19:00 Temperature Pulse Rate Respiratory Rate 13 Blood Pressure Pulse Oximetry 94 L 98 03/09/18 19:05 03/09/18 21:05 03/09/18 23:07 Temperature 37.1 C 37.2 C Pulse Rate 72 76 81 Respiratory Rate 17 16 17 Blood Pressure 100/51 L Pulse Oximetry 98 96 98 03/10/18 03:00 03/10/18 04:29 Temperature 37.7 C H Pulse Rate 78 80 Respiratory Rate 17 14 Blood Pressure 115/65 Pulse Oximetry 98 Intake & Output 03/09/18 03/09/18 03/10/18 06:59 18:59 06:59 Intake Total 3800 / 3800 500 / 500 Output Total 3730 / 3730 Balance 70 / 70 500 / 500 Weight 72.575 kg Intake: IV 550 / 550 500 / 500 Cleviprex Inj 25 mg In 50 ml @ 100 / 100 1 MG/HR 2 mls/hr IV.CONT TITRATE PRN Rx#:[id number] Ofirmev Inj 1,000 mg In 100 ml 100 / 100 200 / 200 @ 400 mls/hr IV.SIG Q6H LAKESHA Rx# :[id number] Calcium Chloride Inj 1 GM In NS 200 / 200 Inj 100 ML @ 100 mls/hr IV.SIG PRN PRN Rx#:[id number] KCl 20 mEq Premix Inj 20 meq In 200 / 200 100 ml @ 50 mls/hr IV.SIG PRN PRN Rx#:[id number] Vancomycin Inj 1,000 MG In NS 250 / 250 Inj 250 ML @ 250 mls/hr IV.SIG Q12H [facility]AKESHA Rx#:[id number] Anesthesia Amount 2500 / 2500 Cell Saver Amount 750 / 750 Output: Estimated Blood Loss 1500 / 1500 Urine Amount (Catheter) 2150 / 2150 Indwelling Temp Sensing 2150 / 2150 Catheter Chest Tube Drainage 80 / 80 Mediastinal 80 / 80 Result Diagrams: 03/10/18 04:40 03/10/18 04:40 Objective Remarks: GENERAL: Middle-aged female, sitting in a chair, awake, alert. no acute distress. HEENT: Normocephalic. Atraumatic. Pupils equal, round, reactive, conjugate. Mucous membranes are moist NECK: Trachea is midline. There is no JVD. Right IJ introducer sheath in place , c/d/i. CHEST: Midline sternal incision with dressing intact. 2 chest tubes exit subxiphoid with minimal amount of sanguinous output. Equal chest rise. nc o2. CARDIOVASCULAR: Slightly tachycardic rate in the low 100s, regular rhythm. Sinus. ABDOMEN: Soft, nontender, nondistended. No guarding. MUSCULOSKELETAL: Pulses 2+. No peripheral edema. NEUROLOGICAL: RASS 0. follows commands briskly. CAM-. KRANTHI 5/5 all 4 extremities. No focal deficits. Assessment and Plan - Assessment and Plan Plan: Assessment: 52-year-old female with inferior RCA STEMI and type a dissection now postop day 1 status post emergent ascending aortic repair. Active Problems: inferior STEMI s/p PCI to RCA RCA dissection Type A dissection s/p emergent ascending aortic repair 03/09 Possible left carotid dissection Plan: - watch uop closely - repeat CT aortogram tomorrow - keep in ICU - start beta blockade - start gentle diuresis - frequent neuro checks - start ASA, Plavix today - goal SBP 100 - 120 - OOB - PT consult Critical care medicine will continue to follow while patient remains in the CVICU.
--- NOTE | 2018-03-10 06:02 | XR ---
EXAM DATE: 03/10/2018 5:05 AM EST AGE/SEX: 52 years / Female INDICATIONS: Short of breath. CLINICAL DATA: This is the patient's subsequent encounter. Patient reports that signs and symptoms h ave been present for 2 days and indicates a pain score of 0/10. MEDICAL/SURGICAL HISTORY: Non-responsive. CABG. COMPARISON: [facility], CHEST 1V SINGLE AP, 03/09/2018. . FINDINGS: Right central line in superior vena cava. Central chest tube without pneumothorax. Mild basilar airsp harmeet disease slightly increased, probably atelectasis. Interval extubation. CONCLUSION: Extubation. Basilar atelectasis. No significant effusion. No pneumothorax. Electronically signed by: Armin Mooney MD 03/10/2018 6:00 AM EST
[2018-03-10] MEDS: Amiodarone 200 MG Tablet PO SCH ×3 (06:25→21:49)
--- NOTE | 2018-03-10 07:17 | MB ---
cc: Chery Jovel MD DATE: 03/09/2018 HISTORY OF PRESENT ILLNESS: A 52-year-old patient with a history of coronary artery disease and a prior NC, who apparently had an intervention approximately 10 years ago and does have a history of some hypertension, presented to the emergency room with an acute onset of severe chest pain, 01/20. The pain was in the middle of her chest, radiating to the back of her scapular area, sharp shooting pain. Upon admission to the emergency department, she was found to have an acute ST segment NC, inferior wall. The patient was emergently taken to cardiac catheterization for attempted revascularization of the RCA. There was also concern initially for an ascending aortic dissection involving the origin of the right coronary artery with compromised flow. The patient underwent emergent catheterization and had a successful PCI with a bare metal stent to reestablish flow in the right coronary artery. The patient continued having presentation of dissection of the ascending aorta, type A. She was emergently taken to the operating room for emergent surgery. PAST MEDICAL HISTORY: Again includes coronary artery disease, now status post bare metal stent to the RCA, hypertension. HOME MEDICATIONS: Only home medication listed is diclofenac. ALLERGIES: INCLUDE AMOXICILLIN, IODINE, PENICILLIN, POTASSIUM IODIDE. FAMILY HISTORY: Noncontributory. SOCIAL HISTORY: The patient is . Former smoker. PAST SURGICAL HISTORY: She has had some surgical manipulation of an ankle joint in the past. REVIEW OF SYSTEMS: Unobtainable. PHYSICAL EXAMINATION: GENERAL: Critically ill female with chest pain. VITAL SIGNS: Blood pressure 138/90, heart rate 66 initially. The patient is awake and does follow commands. HEENT: Head is normocephalic, atraumatic. Pupils equal and reactive. NECK: Supple. No JVD. CARDIOVASCULAR: Sounds S1, S2, tachycardic. No rubs or gallops. LUNGS: Diminished in the bases, otherwise clear to auscultation. ABDOMEN: Soft, nontender. No masses or organomegaly. EXTREMITIES: Good distal pulses. NEUROLOGIC: She is A and O x 3. LABORATORY DATA: Initial lab work shows hemoglobin 13, hematocrit 39, white cell count 11.7, platelet count 227. INR 1.1. Sodium 134, potassium 3.8, BUN 15, creatinine 0.51. Troponin 0.16. BNP of 33. The patient also underwent a JUNIOR while in the trestle mainternance laborer which showed a dissection with a false lumen and flap in the early ascending portion above the sinus of Valsalva with a large false lumen. The dissection flap extended up to the level of the right subclavian artery. The left carotid artery did not appear to be compromised. The descending Thoracic aorta was normal in size without evidence of dissection. PLAN: Again, the patient was taken emergently to the operating room for repair of a type 1 dissection of the ascending aorta. The consents were signed by the . Dictated by Cindy Kim APRN I attended to this patient emergently in the trestle mainternance laborer with Dr. Hall, participated in diagnostic studies, examined her, and discussed the emergency status with her on 03/09/18. She was taken to the OR emergently. MD CONCHITA Whitney/cierra , 04:18 PM , 04:28 PM TIM
[2018-03-10] MEDS: Ketorolac Inj 30 MG/ML (IVP) Vial IV.PUSH PRN ×2 (07:24→17:43)
--- NOTE | 2018-03-10 07:45 | ECG ---
Date Performed: 03/10/2018 Time Performed: 03:27:48 PTAGE: 52 years EKG: CONSIDER ACUTE ST ELEVATION MA Sinus rhythm with PAC(s) Possible anterior infarct - age undetermined Inferior ST elevation, CONSIDER ACUTE INFAR CT Lateral T wave changes are nonspecific Low QRS voltages in precordial leads Abnormal ECG PREVIOUS TRACING : 03/09/2018 10.04 DOCTOR: Ganesh Hall Interpretating Date/Time 03/10/2018 07:43:59
[2018-03-10] MEDS: Metoprolol Tartrate 25 MG Tablet PO SCH ×2 (08:55→21:50)
[2018-03-10] MEDS ORDERED: Dextrose 50% in Water 50 ML Vial IV.PUSH PRN (08:57)
[2018-03-10] MEDS ORDERED: Bisacodyl 10 MG Supp RECTAL PRN (08:57)
[2018-03-10] MEDS ORDERED: Sod Phosphate/Sod Biphosphate (Adult) Enema 133 ML Bottle RECTAL PRN (08:57)
--- NOTE | 2018-03-10 09:36 | P.PNCA ---
Subjective Interval history: Sitting up at the bedside without complaints Hemodynamically stable Ate breakfast without difficulty Medications and Allergies Active Medications: Active Medications Al Hydroxide/Mg Hydroxide (Milk Of Magnesia Liq) 30 ml PO DAILY REJI Albuterol (Duoneb Neb (Prn)) 1 ampul NEB Q2HR NEB PRN PRN Reason: WHEEZING Albuterol (Duoneb Neb (Reji)) 1 ampul NEB Q6HR NEB REJI Last Admin: 03/10/18 09:06 Dose: 1 ampul Albuterol (Duoneb Neb (Reji)) 1 ampul NEB Q6HR WHILE AWAKE NEB [facility] Stop: 03/12/18 13:59 Amiodarone HCl (Cordarone) 400 mg PO Q8HR REJI Last Admin: 03/10/18 06:25 Dose: 400 mg Aspirin (Aspirin Chew) 81 mg PO DAILY [facility] Bisacodyl (Dulcolax Supp) 10 mg RECTAL PRN PRN PRN Reason: SEE LABEL COMMENTS Calcium Chloride (Calcium Chloride Inj) 0.5 gm IV.PUSH UNSCH PRN PRN Reason: SEE LABEL COMMENTS Clopidogrel Bisulfate (Plavix) 75 mg PO DAILY [facility] Vancomycin HCl 1,000 mg/ (Sodium Chloride 1,000 ml) 0 mg 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 TOOL TROUBLE SHOOTER [facility] Last Admin: 03/09/18 13:33 Dose: 1 irrig.soln Dextrose (D50w Vial) 50 ml IV.PUSH UNSCH PRN PRN Reason: PER HYPOGLYCEMIA PROTOCOL Docusate Sodium (Colace) 100 mg PO BID [facility] Fentanyl Citrate (Fentanyl Inj) 25 mcg IV.PUSH Q1H PRN PRN Reason: BREAKTHROUGH PAIN Last Admin: 03/10/18 05:45 Dose: 25 mcg Furosemide (Lasix Inj) 40 mg IV.PUSH DAILY [facility] Glucagon (Glucagon Inj) 1 mg OTHER PRN PRN PRN Reason: For hypoglycemia Sodium Chloride (Ns Inj) 1,000 mls @ 30 mls/hr IV.SIG .Q24H [facility] Stop: 03/10/18 10:14 Papaverine HCl 60 mg/Nitroglycerin 100 mcg/Diltiazem HCl 100 mg/ Sodium Chloride 100 mls @ 0 mls/hr IRRIGATION TOOL TROUBLE SHOOTER [facility] Acetaminophen (Ofirmev Inj) 1,000 mg in 100 mls @ 400 mls/hr IV.SIG Q6H REJI Stop: 03/10/18 10:14 Last Infusion: 03/10/18 03:48 Dose: Infused Albumin Human (Buminate 5% Inj) 250 mls @ 250 mls/hr IV.SIG UNSCH PRN PRN Reason: SEE LABEL COMMENTS Clevidipine (Cleviprex Inj) 25 mg in 50 mls @ 2 mls/hr IV.CONT TITRATE PRN; Protocol PRN Reason: Per protocol Last Admin: 03/10/18 03:48 Dose: 4 mg/hr, 8 mls/hr Lactated Ringer's (Lr 1000 Ml Inj) 500 mls @ 500 mls/hr IV.SIG .Q1H PRN PRN Reason: SEE LABEL COMMENTS Magnesium Sulfate 2 gm/ Sodium (Chloride) 100 mls @ 50 mls/hr IV.SIG PRN PRN PRN Reason: SEE LABEL COMMENTS Potassium Chloride (Kcl 20 Meq Premix Inj) 20 meq in 100 mls @ 50 mls/hr IV.SIG PRN PRN PRN Reason: SEE LABEL COMMENTS Last Infusion: 03/10/18 00:40 Dose: Infused Potassium Chloride (Kcl 20 Meq Premix Inj) 20 meq in 100 mls @ 50 mls/hr IV.SIG PRN PRN PRN Reason: SEE LABEL COMMENTS Potassium Chloride (Kcl 20 Meq Premix Inj) 20 meq in 100 mls @ 50 mls/hr IV.SIG PRN PRN PRN Reason: SEE LABEL COMMENTS Vancomycin HCl 1,000 mg/ (Sodium Chloride) 250 mls @ 250 mls/hr IV.SIG Q12H REJI Stop: 03/10/18 16:59 Last Infusion: 03/10/18 05:45 Dose: Infused Calcium Chloride 1 gm/ Sodium (Chloride) 110 mls @ 100 mls/hr IV.SIG PRN PRN PRN Reason: SEE LABEL COMMENTS Last Infusion: 03/09/18 17:58 Dose: Infused Magnesium Sulfate 2 gm/ Sodium (Chloride) 100 mls @ 50 mls/hr IV.SIG PRN PRN PRN Reason: SEE LABEL COMMENTS Insulin Aspart (Novolog Insulin Correctional Sugar Inj) 0 unit SQ 02,06,10,14, 18,22 REJI; Protocol Stop: 03/11/18 09:59 Insulin Aspart (Novolog Insulin Correctional Sugar Inj) 0 unit SQ ACHS REJI; Protocol Ketorolac Tromethamine (Toradol Inj) 15 mg IV.PUSH Q6H PRN PRN Reason: SEE LABEL COMMENTS Stop: 03/11/18 15:59 Last Admin: 03/10/18 07:24 Dose: 15 mg Metoprolol Tartrate (Lopressor Inj) 2.5 mg IV.PUSH Q1H PRN PRN Reason: SEE LABEL COMMENTS Metoprolol Tartrate (Lopressor) 12.5 mg PO BID [facility] Miscellaneous (Pill Splitter) 1 each OTHER UNSCH PRN PRN Reason: SEE LABEL COMMENTS Multivitamins/Minerals (Theragran-M) 1 tab PO DAILY [facility] Ondansetron HCl (Zofran Inj) 4 mg IV.PUSH Q6H PRN PRN Reason: NAUSEA OR VOMITING Last Admin: 03/09/18 22:25 Dose: 4 mg Oxycodone/Acetaminophen (Percocet 5/325 Mg) 1 tab PO Q3H PRN PRN Reason: PAIN SCALE 1 TO 5 IF BRUNO PO Last Admin: 03/10/18 07:26 Dose: 1 tab Pantoprazole Sodium (Protonix) 40 mg PO DAILY@06 [facility] Last Admin: 03/10/18 06:25 Dose: 40 mg Phenylephrine HCl (Neosynephrine Inj) 0.1 mg IV.PUSH UNSCH PRN PRN Reason: SEE LABEL COMMENTS Polyethylene Glycol (Miralax) 17 gm PO DAILY [facility] Potassium Chloride (K-Dur) 40 meq PO UNSCH PRN PRN Reason: SEE LABEL COMMENTS Potassium Chloride (K-Dur) 20 meq PO UNSCH PRN PRN Reason: SEE LABEL COMMENTS Sennosides (Senokot) 8.6 mg PO HS [facility] Sodium Biphosphate/Sodium Phosphate (Fleets Enema (Adult)) 118 ml RECTAL UNSCH PRN PRN Reason: SEE LABEL COMMENTS Sodium Chloride (Ns Flush) 2 ml IV.FLUSH PRN PRN PRN Reason: FLUSH AFTER USING IV ACCESS Sodium Chloride (Ns Flush) 2 ml IV.FLUSH BID [facility] Last Admin: 03/09/18 21:14 Dose: 2 ml Sodium Chloride (Ns Flush) 2 ml IV.FLUSH PRN PRN PRN Reason: FLUSH AFTER USING IV ACCESS Allergies Allergy/AdvReac Type Severity Reaction Status Date / Time amoxicillin Allergy Mild RED RASH Verified 03/09/18 11:23 iodine Allergy Mild Hives Verified 03/09/18 11:23 penicillin G Allergy Mild RED RASH Verified 03/09/18 11:23 potassium iodide Allergy Mild Hives Verified 03/09/18 11:23 povidone-iodine Allergy Mild Hives Verified 03/09/18 11:23 sodium iodide Allergy Mild Hives Verified 03/09/18 11:23 sodium iodide Allergy Mild Hives Verified 03/09/18 11:23 Sulfa (Sulfonamide Allergy Mild RED RASH Verified 03/09/18 11:23 Antibiotics) ALL CILLINS Allergy Severe Rash Uncoded 03/09/18 11:23 Physical Exam Vital signs: Vital Signs 03/09/18 10:06 03/09/18 10:15 03/09/18 16:20 Temperature 98 F 97.4 F L Pulse Rate 66 71 66 Respiratory Rate 18 18 12 Blood Pressure 138/96 H 170/129 H 105/63 Pulse Oximetry 97 99 99 03/09/18 17:20 03/09/18 17:24 03/09/18 17:28 Temperature Pulse Rate 94 H Respiratory Rate Blood Pressure Pulse Oximetry 94 L 96 03/09/18 18:20 03/09/18 18:31 03/09/18 19:00 Temperature Pulse Rate Respiratory Rate 13 Blood Pressure Pulse Oximetry 94 L 98 03/09/18 19:05 03/09/18 21:05 03/09/18 23:07 Temperature 98.7 F 99.0 F Pulse Rate 72 76 81 Respiratory Rate 17 16 17 Blood Pressure 100/51 L Pulse Oximetry 98 96 98 03/10/18 03:00 03/10/18 04:29 03/10/18 09:09 Temperature 100 F H Pulse Rate 78 80 91 H Respiratory Rate 17 14 17 Blood Pressure 115/65 Pulse Oximetry 98 95 Intake & Output 03/09/18 03/10/18 03/10/18 18:59 06:59 18:59 Intake Total 3800 / 3800 1230 / 1230 Output Total 3730 / 3730 1280 / 1280 Balance 70 / 70 -50 / -50 Weight 72.575 kg 88 kg Intake: IV 550 / 550 750 / 750 Cleviprex Inj 25 mg In 50 ml @ 100 / 100 1 MG/HR 2 mls/hr IV.CONT TITRATE PRN Rx#:[id number] Ofirmev Inj 1,000 mg In 100 ml 100 / 100 200 / 200 @ 400 mls/hr IV.SIG Q6H REJI Rx# :[id number] Calcium Chloride Inj 1 GM In NS 200 / 200 Inj 100 ML @ 100 mls/hr IV.SIG PRN PRN Rx#:[id number] KCl 20 mEq Premix Inj 20 meq In 200 / 200 100 ml @ 50 mls/hr IV.SIG PRN PRN Rx#:[id number] Vancomycin Inj 1,000 MG In NS 250 / 250 250 / 250 Inj 250 ML @ 250 mls/hr IV.SIG Q12H REJI Rx#:[id number] Oral 480 / 480 Anesthesia Amount 2500 / 2500 Cell Saver Amount 750 / 750 Output: Estimated Blood Loss 1500 / 1500 Urine Amount (Catheter) 2150 / 2150 1100 / 1100 Indwelling Temp Sensing 2150 / 2150 1100 / 1100 Catheter Chest Tube Drainage 80 / 80 180 / 180 Mediastinal 80 / 80 180 / 180 - Constitutional no acute distress - Routine HEENT Exam Eye: Present: EOMI, PERRL ENT: Present: mucous membranes moist - Routine Neck Exam Absent: JVD, carotid bruit - Routine Respiratory Exam Present: CTA bilaterally - Routine Cardiovascular Exam Present: RRR. Absent: murmur - Routine Abdominal Exam Present: soft, normoactive bowel sounds - Routine Extremities Exam Absent: edema - Routine Neurological Exam Present: oriented X3, CN II-XII intact. Absent: sensory deficit, motor deficit - Urinary Catheter Management Indwelling Temp Sensing Catheter Cath placed during this visit: yes, but has since been removed by the nurse Reason for continuing: Decision to DC catheter Insertion date: 03/09/18 Insertion time: 12:25 Removal date: 03/10/18 Removal time: 06:25 Results 03/10/18 04:40 03/10/18 04:40 Cardiac Enzymes 03/09/18 03/09/18 03/09/18 Range/Units : 11: 16:25 AST 56 H (15-37) U/L Troponin I 0.16 H (0.02-0.05) ng/mL B-Natriuretic Peptide 33 (0-100) pg/mL Coagulation 03/09/18 03/09/18 03/09/18 Range/Units : 12:40 16:25 PT 10.7 11.7 H (9.8-11.6) sec APTT 48.8 H 26.1 D (23.4-31.7) sec B-Natriuretic Peptide 33 (0-100) pg/mL CBC 03/09/18 03/09/18 03/10/18 Range/Units 11:18 16:25 04:40 WBC 11.7 H 25.5 H D 17.7 H (4.0-11.0) th/mm3 RBC 4.49 4.54 4.18 (4.00-5.30) mil/mm3 Hgb 13.5 14.1 12.6 (11.6-15.3) gm/dL Hct 39.5 41.3 37.0 (35.0-46.0) % Plt Count 227 134 L D 161 (150-450) th/mm3 Neut # (Auto) 9.2 H 23.4 H (1.8-7.7) th/mm3 Lymph # (Auto) 1.7 1.4 (1.0-4.8) th/mm3 [place] # (Auto) 0.3 0.4 (0.0-0.9) th/mm3 Eos # (Auto) 0.4 0.1 (0.0-0.4) th/mm3 Baso # (Auto) 0.1 0.1 (0.0-0.2) th/mm3 Comprehensive Metabolic Panel 03/09/18 03/09/18 03/09/18 Range/Units 11: 11:36 16:25 Sodium 134 L Cancelled 141 (136-145) meq/L Potassium 3.8 Cancelled 3.9 (3.5-5.1) meq/L Chloride 102 Cancelled 109 H (98-107) meq/L Carbon Dioxide 23.4 Cancelled 26.6 (21.0-32.0) meq/L BUN 15 Cancelled 12 (7-18) mg/dL Creatinine 0.51 Cancelled 0.65 (0.50-1.00) mg/dL Calcium 7.8 L Cancelled 6.8 L* D (8.5-10.1) mg/dL AST 56 H (15-37) U/L ALT 16 (10-53) U/L Alkaline Phosphatase 49 (45-117) U/L Total Protein 5.0 L (6.4-8.2) g/dL Albumin 2.5 L (3.4-5.0) g/dL 03/10/18 Range/Units 04:40 Sodium 140 (136-145) meq/L Potassium 4.2 (3.5-5.1) meq/L Chloride 107 (98-107) meq/L Carbon Dioxide 26.7 (21.0-32.0) meq/L BUN 15 (7-18) mg/dL Creatinine 0.49 L (0.50-1.00) mg/dL Calcium 7.5 L (8.5-10.1) mg/dL AST (15-37) U/L ALT (10-53) U/L Alkaline Phosphatase (45-117) U/L Total Protein (6.4-8.2) g/dL Albumin (3.4-5.0) g/dL Intake and Output 03/09/18 03/10/18 03/10/18 22:59 06:59 14:59 Intake Total 4050 / 4050 980 / 980 Output Total 3730 / 3730 1280 / 1280 Balance 320 / 320 -300 / -300 Intake: IV 800 / 800 500 / 500 Cleviprex Inj 25 mg In 50 ml @ 50 / 50 50 / 50 1 MG/HR 2 mls/hr IV.CONT TITRATE PRN Rx#:[id number] Ofirmev Inj 1,000 mg In 100 ml 200 / 200 100 / 100 @ 400 mls/hr IV.SIG Q6H REJI Rx# :[id number] Calcium Chloride Inj 1 GM In NS 200 / 200 Inj 100 ML @ 100 mls/hr IV.SIG PRN PRN Rx#:[id number] KCl 20 mEq Premix Inj 20 meq In 100 / 100 100 / 100 100 ml @ 50 mls/hr IV.SIG PRN PRN Rx#:[id number] Vancomycin Inj 1,000 MG In NS 250 / 250 250 / 250 Inj 250 ML @ 250 mls/hr IV.SIG Q12H REJI Rx#:[id number] Oral 480 / 480 Anesthesia Amount 2500 / 2500 Cell Saver Amount 750 / 750 Output: Estimated Blood Loss 1500 / 1500 Urine Amount (Catheter) 0 / 2150 1100 / 1100 Indwelling Temp Sensing 2149 / 215 1100 / 1100 Catheter Chest Tube Drainage 80 / 80 180 / 180 Mediastinal 80 / 80 180 / 180 Other: Weight 88 kg - Imaging and Cardiology Imaging: Impressions Chest X-Ray 03/09/18 15:34 CONCLUSION: Satisfactory postop appearance Carotid Doppler Study 03/09/18 16:31 CONCLUSION: 1. Extremely Limited examination with nonvisualization of the right carotid artery. 2. Findings concerning for left common carotid dissection. Recommend carotid CT angiography for further evaluation. Chest X-Ray 03/10/18 05:00 CONCLUSION: Extubation. Basilar atelectasis. No significant effusion. No pneumothorax. Assessment and Plan - Assessment (1) Ascending aortic dissection Code(s): I71.01 - Dissection of thoracic aorta Status: Acute (2) Hypertension Code(s): I10 - Essential (primary) hypertension Status: Acute (3) Acute ST elevation myocardial infarction (STEMI) Code(s): I21.3 - ST elevation (STEMI) myocardial infarction of unspecified site Status: Acute - Plan Patient is doing very well this morning considering all of the events that occurred yesterday. Patient had a root sparing aortic descending dissection repair. We will plan to repeat a limited transthoracic echocardiogram tomorrow to evaluate the aortic valve and ejection fraction. We will also plan for a computed tomography scan with contrast of the chest to evaluate the aorta, we will see if we can hopefully extend that from the carotids down through the abdomen to see the extent of the dissection involvement. I discussed the case with Dr. Jovel this morning and feels that he was able to adequately close and evacuated dissection. Hopefully, the remnants of the resection will resolve involving the left carotid. We will initiate Plavix without a load given her bare-metal stents to the right coronary artery. Will initiate guideline directed medical therapy for her coronary artery disease which includes baby aspirin and statin therapy. She also will benefit long-term from beta-kamran therapy for blood pressure control as it appears she has uncontrolled hypertension in the past which likely contributed to her presentation. (3) Acute ST elevation myocardial infarction (STEMI) Qualifiers: Involved coronary artery: right coronary artery Qualified Code(s): I21.11 - ST elevation (STEMI) myocardial infarction involving right coronary artery
[2018-03-10] MEDS: Multivitamin/Minerals Therapeutic Tablet PO SCH (09:53)
[2018-03-10] MEDS: Insulin NovoLOG Aspart Correctional Sugar Inj SQ SCH ×4 (10:34→23:48)
--- NOTE | 2018-03-10 10:49 | P.DIET ---
Nutritional Evaluation Screening comments: MDC for diet education s/p aortic arch repair (03/09) received. Patient Navigator to provide education. Consult RD if complexities with diet education arise.
--- NOTE | 2018-03-10 17:04 | P.PNCV ---
- Note Subjective/Hospital Course: A 52-year-old patient with a history of coronary artery disease and a prior [place], who apparently had an intervention approximately 10 years ago and does have a history of some hypertension, presented to the emergency room with an acute onset of severe chest pain, 01/20. The pain was in the middle of her chest, radiating to the back of her scapular area, sharp shooting pain. Upon admission to the emergency department, she was found to have an acute ST segment [place], inferior wall. The patient was emergently taken to cardiac catheterization for attempted revascularization of the RCA. There was also concern initially for an ascending aortic dissection involving the origin of the right coronary artery with compromised flow. The patient underwent emergent catheterization and had a successful PCI with a bare metal stent to reestablish flow in the right coronary artery. The patient continued having presentation of dissection of the ascending aorta, type A. She was emergently taken to the operating room for emergent surgery. PAST MEDICAL HISTORY: Again includes coronary artery disease, now status post bare metal stent to the RCA, hypertension. - Preoperative Diagnosis (1) Acute ST elevation myocardial infarction (STEMI) (2) Ascending aortic dissection Postoperative Diagnosis: same Date of procedure: 03/09/18 Procedure: Median sternotomy for repair of Type A aortic dissection Left groin cut down for femoral arterial cannulation JUNIOR Implants: 26 Hemashield graft EXTUBATED AFTER SURGERY, 03/11 on cleviprex to keep SBP<120on nasal cannula up in chair, alert and oriented plan to repeat CT chest in am start plavix today, on low dose BB keep in CVICU Objective: Vital Signs - 24 hr 03/09/18 17:20 03/09/18 17:24 03/09/18 17:28 Temperature Pulse Rate 94 H Respiratory Rate Blood Pressure Pulse Oximetry 94 L 96 03/09/18 18:20 03/09/18 18:31 03/09/18 19:00 Temperature Pulse Rate Respiratory Rate 13 Blood Pressure Pulse Oximetry 94 L 98 03/09/18 19:05 03/09/18 21:05 03/09/18 23:07 Temperature 98.7 F 99.0 F Pulse Rate 72 76 81 Respiratory Rate 17 16 17 Blood Pressure 100/51 L Pulse Oximetry 98 96 98 03/10/18 03:00 03/10/18 04:29 03/10/18 07:00 Temperature 100 F H 98.5 F Pulse Rate 78 80 83 Respiratory Rate 17 14 18 Blood Pressure 115/65 135/57 L Pulse Oximetry 98 97 03/10/18 09:09 03/10/18 11:00 03/10/18 13:31 Temperature 98.8 F Pulse Rate 91 H 79 90 Respiratory Rate 17 17 16 Blood Pressure 108/43 L Pulse Oximetry 95 95 03/10/18 15:00 Temperature 98.7 F Pulse Rate 85 Respiratory Rate 16 Blood Pressure 110/68 Pulse Oximetry 95 GENERAL: A&O x 3 SKIN: Warm and dry. prevena dressing to chest HEAD: Normocephalic. EYES: No scleral icterus. No injection or drainage. NECK: Supple, trachea midline. No JVD or lymphadenopathy. CARDIOVASCULAR: slightly tachycardic Regular rate and rhythm without murmurs, gallops, or rubs. mild general edema RESPIRATORY: diminished in bases Breath sounds equal bilaterally. No accessory muscle use. GASTROINTESTINAL: Abdomen soft, non-tender, nondistended. MUSCULOSKELETAL: No cyanosis, or edema. BACK: Nontender without obvious deformity. No CVA tenderness. Labs: Laboratory Results - last 12 hr 03/10/18 03/10/18 03/10/18 04:39 04:40 04:40 WBC 17.7 H RBC 4.18 Hgb 12.6 Hct 37.0 MCV 88.5 MCH 30.0 MCHC 33.9 RDW 13.7 Plt Count 161 MPV 9.8 Sodium 140 Potassium 4.2 Chloride 107 Carbon Dioxide 26.7 Anion Gap 6 BUN 15 Creatinine 0.49 L Estimated GFR Greater than 89 POC Glucose 114 H Random Glucose 122 H Calcium 7.5 L Magnesium 1.8 D 03/10/18 03/10/18 03/10/18 06:38 10:13 14:06 WBC RBC Hgb Hct MCV MCH MCHC RDW Plt Count MPV Sodium Potassium Chloride Carbon Dioxide Anion Gap BUN Creatinine Estimated GFR POC Glucose 124 H 201 H 135 H Random Glucose Calcium Magnesium Result Diagrams: 03/10/18 04:40 03/10/18 04:40 Telemetry: sinus tach - Plan (2) Acute ST elevation myocardial infarction (STEMI) (4) Hypertension Plan: keep SBP<120 (5) Hx of repair of ascending aorta Plan: on ASA, plavix pulm toileting OOB ambulate amiodarone maintain SBP<120 carotid us : CONCLUSION: 1. Extremely Limited examination with nonvisualization of the right carotid artery. 2. Findings concerning for left common carotid dissection. Recommend carotid CT angiography for further evaluation. for ct in am frequent neuro checks keep in CVICU (2) Acute ST elevation myocardial infarction (STEMI) Qualifiers: Involved coronary artery: right coronary artery Qualified Code(s): I21.11 - ST elevation (STEMI) myocardial infarction involving right coronary artery
[2018-03-10] MEDS: Docusate Sodium 100 MG Capsule PO SCH (21:49)
[2018-03-11 04:42] LABS: Baso # (Auto) 0.1 th/mm3 (0.0-0.2); Baso % (Auto) 0.5 % (0.0-2.0); Eos % (Auto) 0.2 % (0.0-4.0); Hematocrit 34.1 % (35.0-46.0); Hemoglobin 11.4 gm/dL (11.6-15.3); Lymph # (Auto) 1.7 th/mm3 (1.0-4.8); Lymph % (Auto) 10.4 % (9.0-44.0); Mean Corpuscular HGB Conc 33.6 % (32.0-36.0); Mean Corpuscular Hemoglobin 29.5 pg (27.0-34.0); Mean Platelet Volume 9.4 fL (7.0-11.0); Mono # (Auto) 1.1 th/mm3 (0.0-0.9); Mono % (Auto) 6.6 % (0.0-8.0); Neut # (Auto) 13.8 th/mm3 (1.8-7.7); Neut % (Auto) 82.3 % (16.0-70.0); Platelet Count 147 th/mm3 (150-450); Red Blood Count 3.88 mil/mm3 (4.00-5.30); Red Cell Distribution Width 13.8 % (11.6-17.2); White Blood Count 16.8 th/mm3 (4.0-11.0)
[2018-03-11 05:06] LABS: Anion Gap 7 meq/L (5-15); Blood Urea Nitrogen 11 mg/dL (7-18); Calcium 7.9 mg/dL (8.5-10.1); Chloride 100 meq/L (98-107); Glomerular Filtration Rate Greater Than 89 mL/min (>89); Glucose,Random 143 mg/dL (74-106); Magnesium 2.4 mg/dL (1.5-2.5); Potassium 4.2 meq/L (3.5-5.1); Sodium 136 meq/L (136-145)
[2018-03-11] MEDS: Insulin NovoLOG Aspart Correctional Sugar Inj SQ SCH ×6 (05:39→21:11)
[2018-03-11] MEDS: Amiodarone 200 MG Tablet PO SCH ×3 (06:00→20:59)
--- NOTE | 2018-03-11 10:07 | P.PNCA ---
Subjective Interval history: Doing very well this morning. No complaints. Medications and Allergies Active Medications: Active Medications Al Hydroxide/Mg Hydroxide (Milk Of Rony Shankar) 30 ml PO DAILY [facility] Last Admin: 03/10/18 09:53 Dose: 30 ml Albuterol (Duoneb Neb (Prn)) 1 ampul NEB Q2HR NEB PRN PRN Reason: WHEEZING Albuterol (Duoneb Neb ([facility])) 1 ampul NEB Q6HR NEB [facility] Last Admin: 03/11/18 09:50 Dose: Not Given Albuterol (Duoneb Neb (Reji)) 1 ampul NEB Q6HR WHILE AWAKE NEB [facility] Stop: 03/12/18 13:59 Last Admin: 03/11/18 09:50 Dose: 1 ampul Amiodarone HCl (Cordarone) 400 mg PO Q8HR [facility] Last Admin: 03/11/18 06:00 Dose: 400 mg Aspirin (Aspirin Chew) 81 mg PO DAILY [facility] Last Admin: 03/10/18 08:55 Dose: 81 mg Atorvastatin Calcium (Lipitor) 40 mg PO HS [facility] Last Admin: 03/10/18 21:51 Dose: 40 mg Bisacodyl (Dulcolax Supp) 10 mg RECTAL PRN PRN PRN Reason: SEE LABEL COMMENTS Calcium Chloride (Calcium Chloride Inj) 0.5 gm IV.PUSH UNSCH PRN PRN Reason: SEE LABEL COMMENTS Clopidogrel Bisulfate (Plavix) 75 mg PO DAILY [facility] Last Admin: 03/10/18 09:53 Dose: 75 mg Vancomycin HCl 1,000 mg/ (Sodium Chloride 1,000 ml) 0 mg 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 [facility] Last Admin: 03/09/18 13:33 Dose: 1 irrig.soln Dextrose (D50w Vial) 50 ml IV.PUSH UNSCH PRN PRN Reason: PER HYPOGLYCEMIA PROTOCOL Docusate Sodium (Colace) 100 mg PO BID [facility] Last Admin: 03/10/18 21:49 Dose: 100 mg Fentanyl Citrate (Fentanyl Inj) 25 mcg IV.PUSH Q1H PRN PRN Reason: BREAKTHROUGH PAIN Last Admin: 03/10/18 23:49 Dose: 25 mcg Furosemide (Lasix Inj) 40 mg IV.PUSH DAILY [facility] Last Admin: 03/10/18 08:55 Dose: 40 mg Glucagon (Glucagon Inj) 1 mg OTHER PRN PRN PRN Reason: For hypoglycemia Papaverine HCl 60 mg/Nitroglycerin 100 mcg/Diltiazem HCl 100 mg/ Sodium Chloride 100 mls @ 0 mls/hr 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 REJI Albumin Human (Buminate 5% Inj) 250 mls @ 250 mls/hr IV.SIG UNSCH PRN PRN Reason: SEE LABEL COMMENTS Clevidipine (Cleviprex Inj) 25 mg in 50 mls @ 2 mls/hr IV.CONT TITRATE PRN; Protocol PRN Reason: Per protocol Last Titration: 03/10/18 16:37 Dose: 0 mg/hr, 0 mls/hr Lactated Ringer's (Lr 1000 Ml Inj) 500 mls @ 500 mls/hr IV.SIG .Q1H PRN PRN Reason: SEE LABEL COMMENTS Magnesium Sulfate 2 gm/ Sodium (Chloride) 100 mls @ 50 mls/hr IV.SIG PRN PRN PRN Reason: SEE LABEL COMMENTS Potassium Chloride (Kcl 20 Meq Premix Inj) 20 meq in 100 mls @ 50 mls/hr IV.SIG PRN PRN PRN Reason: SEE LABEL COMMENTS Last Infusion: 03/10/18 00:40 Dose: Infused Potassium Chloride (Kcl 20 Meq Premix Inj) 20 meq in 100 mls @ 50 mls/hr IV.SIG PRN PRN PRN Reason: SEE LABEL COMMENTS Potassium Chloride (Kcl 20 Meq Premix Inj) 20 meq in 100 mls @ 50 mls/hr IV.SIG PRN PRN PRN Reason: SEE LABEL COMMENTS Calcium Chloride 1 gm/ Sodium (Chloride) 110 mls @ 100 mls/hr IV.SIG PRN PRN PRN Reason: SEE LABEL COMMENTS Last Infusion: 03/09/18 17:58 Dose: Infused Magnesium Sulfate 2 gm/ Sodium (Chloride) 100 mls @ 50 mls/hr IV.SIG PRN PRN PRN Reason: SEE LABEL COMMENTS Insulin Aspart (Novolog Insulin Correctional Sugar Inj) 0 unit SQ ACHS REJI; Protocol Ketorolac Tromethamine (Toradol Inj) 15 mg IV.PUSH Q6H PRN PRN Reason: SEE LABEL COMMENTS Stop: 03/11/18 15:59 Last Admin: 03/10/18 17:43 Dose: 15 mg Metoprolol Tartrate (Lopressor Inj) 2.5 mg IV.PUSH Q1H PRN PRN Reason: SEE LABEL COMMENTS Metoprolol Tartrate (Lopressor) 12.5 mg PO BID REJI Last Admin: 03/10/18 21:50 Dose: 12.5 mg Miscellaneous (Pill Splitter) 1 each OTHER UNSCH PRN PRN Reason: SEE LABEL COMMENTS Multivitamins/Minerals (Theragran-M) 1 tab PO DAILY [facility] Last Admin: 03/10/18 09:53 Dose: 1 tab Ondansetron HCl (Zofran Inj) 4 mg IV.PUSH Q6H PRN PRN Reason: NAUSEA OR VOMITING Last Admin: 03/09/18 22:25 Dose: 4 mg Oxycodone/Acetaminophen (Percocet 5/325 Mg) 1 tab PO Q3H PRN PRN Reason: PAIN SCALE 1 TO 5 IF BRUNO PO Last Admin: 03/11/18 06:01 Dose: 1 tab Pantoprazole Sodium (Protonix) 40 mg PO DAILY@06 [facility] Last Admin: 03/11/18 06:00 Dose: 40 mg Phenylephrine HCl (Neosynephrine Inj) 0.1 mg IV.PUSH UNSCH PRN PRN Reason: SEE LABEL COMMENTS Polyethylene Glycol (Miralax) 17 gm PO DAILY [facility] Potassium Chloride (K-Dur) 40 meq PO UNSCH PRN PRN Reason: SEE LABEL COMMENTS Potassium Chloride (K-Dur) 20 meq PO UNSCH PRN PRN Reason: SEE LABEL COMMENTS Sennosides (Senokot) 8.6 mg PO HS [facility] Last Admin: 03/10/18 21:49 Dose: 8.6 mg Sodium Biphosphate/Sodium Phosphate (Fleets Enema (Adult)) 118 ml RECTAL UNSCH PRN PRN Reason: SEE LABEL COMMENTS Sodium Chloride (Ns Flush) 2 ml IV.FLUSH PRN PRN PRN Reason: FLUSH AFTER USING IV ACCESS Sodium Chloride (Ns Flush) 2 ml IV.FLUSH BID [facility] Last Admin: 03/10/18 23:49 Dose: 2 ml Sodium Chloride (Ns Flush) 2 ml IV.FLUSH PRN PRN PRN Reason: FLUSH AFTER USING IV ACCESS Allergies Allergy/AdvReac Type Severity Reaction Status Date / Time amoxicillin Allergy Mild RED RASH Verified 03/09/18 11:23 iodine Allergy Mild Hives Verified 03/09/18 11:23 penicillin G Allergy Mild RED RASH Verified 03/09/18 11:23 potassium iodide Allergy Mild Hives Verified 03/09/18 11:23 povidone-iodine Allergy Mild Hives Verified 03/09/18 11:23 sodium iodide Allergy Mild Hives Verified 03/09/18 11:23 sodium iodide Allergy Mild Hives Verified 03/09/18 11:23 Sulfa (Sulfonamide Allergy Mild RED RASH Verified 03/09/18 11:23 Antibiotics) ALL CILLINS Allergy Severe Rash Uncoded 03/09/18 11:23 Physical Exam Vital signs: Vital Signs 03/10/18 11:00 03/10/18 13:31 03/10/18 15:00 Temperature 98.8 F 98.7 F Pulse Rate 79 90 85 Respiratory Rate 17 16 16 Blood Pressure 108/43 L 110/68 Pulse Oximetry 95 95 03/10/18 19:00 03/10/18 20:01 03/10/18 22:20 Temperature 98.0 F Pulse Rate 92 H 91 H Respiratory Rate 18 22 16 Blood Pressure 120/59 L Pulse Oximetry 92 L 03/10/18 22:47 03/10/18 23:00 03/11/18 00:50 Temperature Pulse Rate 89 Respiratory Rate 16 Blood Pressure Pulse Oximetry 90 L 03/11/18 03:00 03/11/18 06:42 03/11/18 07:00 Temperature 98.2 F 97.8 F Pulse Rate 96 H 87 Respiratory Rate 18 16 18 Blood Pressure 104/58 L 111/59 L Pulse Oximetry 94 L 94 L 03/11/18 09:53 03/11/18 09:56 Temperature Pulse Rate 88 Respiratory Rate 20 Blood Pressure Pulse Oximetry 94 L Intake & Output 03/10/18 03/11/18 03/11/18 18:59 06:59 18:59 Intake Total 155 / 155 680 / 680 Output Total 705 / 705 925 / 925 Balance -550 / -550 -245 / -245 Weight 88 kg Intake: IV 155 / 155 NovoLIN R (IV Infusion) 100 55 / 55 UNIT In NS Inj 99 ML @ 3 UNITS/ HR 3 mls/hr IV.CONT TITRATE PRN Rx#:[id number] Magnesium Sulfate Inj 2 GM In 100 / 100 NS Inj 96 ML @ 50 mls/hr IV.SIG ONCE ONE Rx#:[id number] Oral 680 / 680 Output: Urine 625 / 625 925 / 925 Stool 0 / 0 Chest Tube Drainage 80 / 80 Mediastinal 80 / 80 - Constitutional no acute distress - Routine HEENT Exam Eye: Present: EOMI, PERRL ENT: Present: mucous membranes moist - Routine Neck Exam Absent: JVD - Routine Respiratory Exam Present: CTA bilaterally - Routine Cardiovascular Exam Present: RRR. Absent: murmur - Routine Abdominal Exam Present: normoactive bowel sounds - Routine Extremities Exam Absent: edema - Routine Neurological Exam Present: oriented X3, CN II-XII intact. Absent: sensory deficit, motor deficit - Urinary Catheter Management Indwelling Temp Sensing Catheter Cath placed during this visit: yes, but has since been removed by the nurse Reason for continuing: Decision to DC catheter Insertion date: 03/09/18 Insertion time: 12:25 Removal date: 03/10/18 Removal time: 06:25 Results 03/11/18 04:30 03/11/18 04:30 Cardiac Enzymes 03/09/18 03/09/18 03/09/18 Range/Units : 11: 16:25 AST 56 H (15-37) U/L Troponin I 0.16 H (0.02-0.05) ng/mL B-Natriuretic Peptide 33 (0-100) pg/mL Coagulation 03/09/18 03/09/18 03/09/18 Range/Units 11:18 12:40 16:25 PT 10.7 11.7 H (9.8-11.6) sec APTT 48.8 H 26.1 D (23.4-31.7) sec B-Natriuretic Peptide 33 (0-100) pg/mL CBC 03/09/18 03/09/18 03/10/18 Range/Units 11:18 16:25 04:40 WBC 11.7 H 25.5 H D 17.7 H (4.0-11.0) th/mm3 RBC 4.49 4.54 4.18 (4.00-5.30) mil/mm3 Hgb 13.5 14.1 12.6 (11.6-15.3) gm/dL Hct 39.5 41.3 37.0 (35.0-46.0) % Plt Count 227 134 L D 161 (150-450) th/mm3 Neut # (Auto) 9.2 H 23.4 H (1.8-7.7) th/mm3 Lymph # (Auto) 1.7 1.4 (1.0-4.8) th/mm3 [place] # (Auto) 0.3 0.4 (0.0-0.9) th/mm3 Eos # (Auto) 0.4 0.1 (0.0-0.4) th/mm3 Baso # (Auto) 0.1 0.1 (0.0-0.2) th/mm3 03/11/18 Range/Units 04:30 WBC 16.8 H (4.0-11.0) th/mm3 RBC 3.88 L (4.00-5.30) mil/mm3 Hgb 11.4 L (11.6-15.3) gm/dL Hct 34.1 L (35.0-46.0) % Plt Count 147 L (150-450) th/mm3 Neut # (Auto) 13.8 H (1.8-7.7) th/mm3 Lymph # (Auto) 1.7 (1.0-4.8) th/mm3 [place] # (Auto) 1.1 H (0.0-0.9) th/mm3 Eos # (Auto) 0.0 (0.0-0.4) th/mm3 Baso # (Auto) 0.1 (0.0-0.2) th/mm3 Comprehensive Metabolic Panel 03/09/18 03/09/18 03/09/18 Range/Units 11:18 11:36 16:25 Sodium 134 L Cancelled 141 (136-145) meq/L Potassium 3.8 Cancelled 3.9 (3.5-5.1) meq/L Chloride 102 Cancelled 109 H (98-107) meq/L Carbon Dioxide 23.4 Cancelled 26.6 (21.0-32.0) meq/L BUN 15 Cancelled 12 (7-18) mg/dL Creatinine 0.51 Cancelled 0.65 (0.50-1.00) mg/dL Calcium 7.8 L Cancelled 6.8 L* D (8.5-10.1) mg/dL AST 56 H (15-37) U/L ALT 16 (10-53) U/L Alkaline Phosphatase 49 (45-117) U/L Total Protein 5.0 L (6.4-8.2) g/dL Albumin 2.5 L (3.4-5.0) g/dL 03/10/18 03/11/18 Range/Units 04:40 04:30 Sodium 140 136 (136-145) meq/L Potassium 4.2 4.2 (3.5-5.1) meq/L Chloride 107 100 (98-107) meq/L Carbon Dioxide 26.7 29.0 (21.0-32.0) meq/L BUN 15 11 (7-18) mg/dL Creatinine 0.49 L 0.54 (0.50-1.00) mg/dL Calcium 7.5 L 7.9 L (8.5-10.1) mg/dL AST (15-37) U/L ALT (10-53) U/L Alkaline Phosphatase (45-117) U/L Total Protein (6.4-8.2) g/dL Albumin (3.4-5.0) g/dL Intake and Output 03/10/18 03/11/18 03/11/18 22:59 06:59 14:59 Intake Total 680 / 680 Output Total 705 / 705 925 / 925 Balance -705 / -705 -245 / -245 Intake: Oral 680 / 680 Output: Urine 625 / 625 925 / 925 Stool 0 / 0 Chest Tube Drainage 80 / 80 Mediastinal 80 / 80 Other: Weight 88 kg - Imaging and Cardiology Imaging: Impressions Chest X-Ray 03/09/18 15:34 CONCLUSION: Satisfactory postop appearance Carotid Doppler Study 03/09/18 16:31 CONCLUSION: 1. Extremely Limited examination with nonvisualization of the right carotid artery. 2. Findings concerning for left common carotid dissection. Recommend carotid CT angiography for further evaluation. Chest X-Ray 03/10/18 05:00 CONCLUSION: Extubation. Basilar atelectasis. No significant effusion. No pneumothorax. Assessment and Plan - Assessment (1) Ascending aortic dissection Code(s): I71.01 - Dissection of thoracic aorta Status: Acute (2) Hypertension Code(s): I10 - Essential (primary) hypertension Status: Acute (3) Acute ST elevation myocardial infarction (STEMI) Code(s): I21.3 - ST elevation (STEMI) myocardial infarction of unspecified site Status: Acute - Plan Doing well. Continue aspirin and Plavix. Continue usual postoperative care. CT scan of the chest with contrast today. (3) Acute ST elevation myocardial infarction (STEMI) Qualifiers: Involved coronary artery: right coronary artery Qualified Code(s): I21.11 - ST elevation (STEMI) myocardial infarction involving right coronary artery
[2018-03-11] MEDS ORDERED: MethylPREDNISolone Sod Succinate Inj 125 MG/2 ML Vial IV.PUSH ONE (10:59)
[2018-03-11] MEDS ORDERED: Famotidine PF Inj 20 MG/2 ML Vial IV.PUSH SCH (11:15)
[2018-03-11] MEDS ORDERED: Hydrocortisone Sod Succinate 250 MG Vial IV.PUSH SCH (11:15)
[2018-03-11] MEDS: Docusate Sodium 100 MG Capsule PO SCH ×2 (11:47→21:01)
[2018-03-11] MEDS: Metoprolol Tartrate 25 MG Tablet PO SCH ×2 (11:47→20:59)
[2018-03-11] MEDS: Polyethylene Glycol 3350 17 GM Packet PO SCH (11:48)
[2018-03-11] MEDS: Multivitamin/Minerals Therapeutic Tablet PO SCH (11:48)
[2018-03-11] MEDS: Ketorolac Inj 30 MG/ML (IVP) Vial IV.PUSH PRN (11:51)
[2018-03-11] MEDS ORDERED: Atropine Inj 1 MG/10 ML Syringe ONE (12:30)
--- NOTE | 2018-03-11 14:10 | CT ---
EXAM DATE: 03/11/2018 1:52 PM EST AGE/SEX: 52 years / Female INDICATIONS: Type A aortic dissection status post recent repair. CLINICAL DATA: This is the patient's initial encounter. Patient reports that signs and symptoms have been present for 3 days and indicates a pain score of 5/10. MEDICAL/SURGICAL HISTORY: Cardiovascular disease. . Aortic arch and root repair RADIATION DOSE: 15.40 CTDI (mGy) COMPARISON: No prior exams available for comparison. TECHNIQUE: Volumetric scanning was performed using a multi-row detector CT scanner during bolus infu noel of 95 ml Omnipaque 350 (iohexol) nonionic water-soluble contrast as a single exam dose. The da ta was post processed with a variety of visualization algorithms including full volume maximum intens ity projection, multi-planar sliding thin slab reformation, curved planar reformation, and surface re ndering techniques. Using automated exposure control and adjustment of the mA and/or kV according to patient size, radiation dose was kept as low as reasonably achievable to obtain optimal diagnostic q uality images. DICOM format image data is available electronically for review and comparison. FINDINGS: The appearance of the ascending thoracic aorta is satisfactory post recent open repair of dissection. There is minimal para-aortic fluid and air consistent with recent postop state and some minimal flui d tracking upward along the innominate and carotid vessels. No evidence of dissection residual in the ascending thoracic aorta or the aortic arch and no evidence of dissection into the carotids are subc lavians. The carotids are widely patent well up into the neck past the bifurcation level. There is persistent dissection of the descending thoracic aorta with minimal relative compromise of t he true lumen by false lumen. In the upper abdomen, flow to the celiac and SMA is via the true lumen. The dissection terminates just above the origin of the renal arteries and the renals are widely santiago nt. The ASAD is patent. The iliac vessels are widely patent. The visualized proximal thigh vessels are patent bilaterally. The hypogastrics are patent bilaterally. Elsewhere, there is mild atelectasis in the lung bases bilaterally. There is a small epiphrenic gastr ic fundal diverticulum noted. CONCLUSION: 1. 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 2. No evidence of dissection propagation into the carotids or subclavians 3. Descending aortic dissection with relatively mild true luminal compromise. Satisfactory preservat ion of flow in the celiac and SMA. Dissection terminates above the renal artery origins Electronically signed by: Bob Reyna MD 03/11/2018 2:08 PM EST
--- NOTE | 2018-03-11 16:28 | P.PNCV ---
- Note Subjective/Hospital Course: A 52-year-old patient with a history of coronary artery disease and a prior [place], who apparently had an intervention approximately 10 years ago and does have a history of some hypertension, presented to the emergency room with an acute onset of severe chest pain, 01/20. The pain was in the middle of her chest, radiating to the back of her scapular area, sharp shooting pain. Upon admission to the emergency department, she was found to have an acute ST segment [place], inferior wall. The patient was emergently taken to cardiac catheterization for attempted revascularization of the RCA. There was also concern initially for an ascending aortic dissection involving the origin of the right coronary artery with compromised flow. The patient underwent emergent catheterization and had a successful PCI with a bare metal stent to reestablish flow in the right coronary artery. The patient continued having presentation of dissection of the ascending aorta, type A. She was emergently taken to the operating room for emergent surgery. PAST MEDICAL HISTORY: Again includes coronary artery disease, now status post bare metal stent to the RCA, hypertension. - Preoperative Diagnosis (1) Acute ST elevation myocardial infarction (STEMI) (2) Ascending aortic dissection Postoperative Diagnosis: same Date of procedure: 03/09/18 Procedure: Median sternotomy for repair of Type A aortic dissection Left groin cut down for femoral arterial cannulation JUNIOR Implants: 26 Hemashield graft EXTUBATED AFTER SURGERY, 03/10 on cleviprex to keep SBP<120on nasal cannula up in chair, alert and oriented plan to repeat CT chest in am start plavix today, on low dose BB keep in CVICU 03/11 off cleviprex, on low dose BB CT chest stable no carotid or subclavian dissection eval for transfer to stepdown continue ASA, statin plavix chest tube dc , check CXR in am OOB with PT , pain control Objective: Vital Signs - 24 hr 03/10/18 19:00 03/10/18 20:01 03/10/18 22:20 Temperature 98.0 F Pulse Rate 92 H 91 H Respiratory Rate 18 22 16 Blood Pressure 120/59 L Pulse Oximetry 92 L 03/10/18 22:47 03/10/18 23:00 03/11/18 00:50 Temperature Pulse Rate 89 Respiratory Rate 16 Blood Pressure Pulse Oximetry 90 L 03/11/18 03:00 03/11/18 06:42 03/11/18 07:00 Temperature 98.2 F 97.8 F Pulse Rate 96 H 87 Respiratory Rate 18 16 18 Blood Pressure 104/58 L 111/59 L Pulse Oximetry 94 L 95 03/11/18 09:53 03/11/18 09:56 03/11/18 10:00 Temperature Pulse Rate 88 Respiratory Rate 20 16 Blood Pressure Pulse Oximetry 94 L 03/11/18 10:54 03/11/18 11:00 03/11/18 14:02 Temperature 98.2 F Pulse Rate 82 87 Respiratory Rate 18 18 Blood Pressure 97/56 L Pulse Oximetry 95 95 03/11/18 15:00 Temperature 98.4 F Pulse Rate 90 Respiratory Rate 16 Blood Pressure 101/60 Pulse Oximetry 94 L GENERAL: A&O x 3 SKIN: Warm and dry. prevena dressing to chest HEAD: Normocephalic. EYES: No scleral icterus. No injection or drainage. NECK: Supple, trachea midline. No JVD or lymphadenopathy. CARDIOVASCULAR: Regular rate and rhythm without murmurs, gallops, or rubs, mild general edema . RESPIRATORY: Breath sounds equal bilaterally. No accessory muscle use. diminished in bases / chest tube dc GASTROINTESTINAL: Abdomen soft, non-tender, nondistended. MUSCULOSKELETAL: No cyanosis, or edema. BACK: Nontender without obvious deformity. No CVA tenderness. Labs: Laboratory Results - last 12 hr 03/11/18 03/11/18 03/11/18 04:30 04:30 04:41 WBC 16.8 H RBC 3.88 L Hgb 11.4 L Hct 34.1 L MCV 88.0 MCH 29.5 MCHC 33.6 RDW 13.8 Plt Count 147 L MPV 9.4 Neut % (Auto) 82.3 H Lymph % (Auto) 10.4 [place] % (Auto) 6.6 Eos % (Auto) 0.2 Baso % (Auto) 0.5 Neut # (Auto) 13.8 H Lymph # (Auto) 1.7 [place] # (Auto) 1.1 H Eos # (Auto) 0.0 Baso # (Auto) 0.1 WBC Differential . Differential Comment Auto diff final Sodium 136 Potassium 4.2 Chloride 100 Carbon Dioxide 29.0 Anion Gap 7 BUN 11 Creatinine 0.54 Estimated GFR Greater than 89 POC Glucose 149 H Random Glucose 143 H Calcium 7.9 L Magnesium 2.4 D 03/11/18 03/11/18 10:35 14:10 WBC RBC Hgb Hct MCV MCH MCHC RDW Plt Count MPV Neut % (Auto) Lymph % (Auto) [place] % (Auto) Eos % (Auto) Baso % (Auto) Neut # (Auto) Lymph # (Auto) [place] # (Auto) Eos # (Auto) Baso # (Auto) WBC Differential Differential Comment Sodium Potassium Chloride Carbon Dioxide Anion Gap BUN Creatinine Estimated GFR POC Glucose 140 H 139 H Random Glucose Calcium Magnesium Result Diagrams: 03/11/18 04:30 03/11/18 04:30 Telemetry: NSR - Plan (2) Acute ST elevation myocardial infarction (STEMI) (4) Hypertension Plan: keep SBP<120 (5) Hx of repair of ascending aorta Plan: on ASA, plavix pulm toileting OOB ambulate amiodarone / decrease dose maintain SBP<130-140 carotid us : CONCLUSION: 1. Extremely Limited examination with nonvisualization of the right carotid artery. 2. Findings concerning for left common carotid dissection. Recommend carotid CT angiography for further evaluation. CT CONCLUSION: 03/11 1. 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 2. No evidence of dissection propagation into the carotids or subclavians 3. Descending aortic dissection with relatively mild true luminal compromise. Satisfactory preservation of flow in the celiac and SMA. Dissection terminates above the renal artery origins eval for transfer to stepdown (2) Acute ST elevation myocardial infarction (STEMI) Qualifiers: Involved coronary artery: right coronary artery Qualified Code(s): I21.11 - ST elevation (STEMI) myocardial infarction involving right coronary artery
--- NOTE | 2018-03-11 16:35 | P.DCO ---
- Diagnosis (1) Acute ST elevation myocardial infarction (STEMI) Status: Acute (2) Ascending aortic dissection Status: Acute (3) Hypertension Status: Chronic (4) Hx of repair of ascending aorta Status: Acute (5) S/P ascending aortic aneurysm repair Status: Acute - Home Health Nursing Order: Medical education, Signs/symptoms of disease process, Wound care and dressing changes, Nursing assessment with vital signs Instructions: Heart and Vascular Surgery patients *Special attention to sternal dressing Mandatory frequency Assess and evaluation, 4 days in a row The next week 3X week 2 times a week for 4 weeks 1 time a week for 5 weeks Schedule Heart and Vascular patients for full 60 day certification period Initial visit Review Open Heart Surgery Discharge Instructions (Sternal precautions, Activity, Elastic hose, Incision care, Driving, Incentive spirometry, Smoking, [place], Work and other) Need Betadine to paint incision Medication reconciliation Importance of follow up care/ check on appointments Make calendar record temperature daily When to call [facility] nurse, review instructions, phone list Incentive Spirometry, demonstration Visit 1- Begin discharge instruction for patient family and/ or caregiver using teach back method- Signs and symptoms of infection Disease characteristics Medicines and side effects Foods and nutrition/ appetite Infection control/ hand washing/ hygiene Visit 2- Continue teaching Discharge instructions- include additional information on smoking cessation , sternal dressing (sternal vac) Visit 3- Continue teaching- Cough and deep breathing, incision monitoring. Choose my plate Visit 4- Continue teaching- Discuss limitations Discuss how they are feeling Discuss progress toward goals Remaining visits- continue teaching and monitoring For any questions please call : Thursday 8am-5pm Heart & Vascular Surgery Office ( Dr. Wilder & Dr. Jovel), After Hours / Nights (5pm -8am) Weekends and Holidays Please call [facility] ([facility]) Charge Nurse PREVENA Single Use Negative Wound Therapy System Caregiver Instruction Sheet 1. A Prevena dressing system was applied to the chest incision during surgery , to promote wound healing. It works via a suction device (negative pressure wound therapy) to remove low to moderate levels of exudate (drainage) and infectious materials. We recommend that the device stay in place for up to seven days, from day of surgery. 2. Day of Surgery___// Day of Removal ____12/4/18 3. The dressing should only be removed by a health acute care nurse. Please arrange removal of device to coincide with Home Health visit and or with Nursing staff at Rehab 4. If skin reddening or irritation of skin occurs, or excessive drainage, please notify the Cardiovascular Surgeons office at [phone]. 5. Light showering is permissible; however the pump should be disconnected and placed in safe location, where it will not get wet. The dressing should not be exposed to direct spray or submerged in water. No bath tub / shower only. Ensure the end of the tubing attached to the dressing is facing down so that water does not enter the top of the tube. 6. To remove Prevena dressing: press purple button to turn off device / remove the suction. Then disconnect the tubing from the pump. The fixation strips should be stretched away from the skin and the dressing lifted at one corner and peeled back until it has been fully removed. 7. After removal, it is ok to shower daily using liquid dial soap and clean wash cloth, rinse and pat dry, and leave incision open to air dry. For any concerns regarding Prevena dressing, and or wounds, please contact Lisette Morgan, patient navigator at [phone] or notify the Cardiovascular Surgeons office at [phone]. Incentive spirometry Q1 hr x 10, while awake, also use acapella device hourly whole awake Sternal Breast Bone Precautions: NO pushing or pulling, ( pt must use sternal pillow to support chest with all activities and with coughing ( takes up to 3 months breast bone to heal ) All females to wear sternal bra , launder as needed Daily incision care: ok to shower daily, no tub bath. Wash all incisions with liquid dial soap, clean wash cloth to each site, rinse and pat dry. Observe for any signs of infection, such as drainage which is dark yellow, beebe, green or foul smelling. Immediately report to the surgeon any drainage from the chest incision, or legs, and for any abnormal drainage from the chest tube sites. Notify surgeon if any temp >101.5 degrees F. When specialty dressing removed/ or if you do not have one, continue to shower daily as above, then rinse and pat incision dry and paint with betadine daily x 5 days. Allow steri strips to fall off if you have any. Avoid lotions, creams, salves, oils, etc. for the first month Please see attached forms for additional instructions regarding post Open Heart specialty wound vacuum dressings. ANIKA or Prevena , Dressing to be removed by Nursing staff on __03/16/[address] Jovel patients , please obtain CBC, BMP, PA & Lat CXR in 2 weeks, results to Dr. Jovel ( prescription will be given) ( ) (Tele: [phone]) , Valve replacement pts will need 2decho in 2 weeks with results to Dr. Jovel . Please obtain 2 d echo at your food service ambassador office if possible F/U appointment: as per DC instructions: PCP in 2 weeks, CV surgeon 2 weeks, Building Construction Supervisor 3-4 weeks For any questions regarding incisions/ dressing / meds / post op care or above Symptoms, Thursday 8am-5pm Heart & Vascular Surgery Office ( Dr. Wilder & Dr. Jovel), After Hours / Nights (5pm -8am) Weekends and Holidays Please call [facility] ([facility]) Charge Nurse - Case Management Consult Case Management Consult-Home Health: Yes - Certification I have seen patient Olga Calle on 03/11/18. My clinical findings support the need for the requested home health care services because: Deconditioned with increased weakness I certify that my clinical findings support that this patient is homebound because: Post-op weakness (1) Acute ST elevation myocardial infarction (STEMI) Qualifiers: Involved coronary artery: right coronary artery Qualified Code(s): I21.11 - ST elevation (STEMI) myocardial infarction involving right coronary artery
--- NOTE | 2018-03-11 18:31 | P.PNCC ---
Subjective Subjective Remarks/Hospital Course: Hospital Course: 52yF who presented with inferior STEMI, taken to veterinarian laboratory animal care by Dr. Hall. during cath, noted RCA dissection which was immediately stented. after this, noted ascending aortic dissection. discussed with Dr. Jovel and taken emergently to OR. I was asked to assist with the JUNIOR evaluation and hemodynamic management in the perioperative period. I evaluated the patient in the OR immediately after induction of anesthesia. I placed JUNIOR probe for perioperative monitoring and decision-making as well as formal evaluation of ventricular function and evaluation of the evolution of the dissection for operative decisionmaking (see separate procedure note for details). Patient underwent ascending aortic repair (valve/root sparing). Patient arrived to the CVICU in intubated condition, on clevidipine. adequate uop intra-operatively. chest tube output over first hour was 80mL which improved to 30mL second hour. lactate clearing. ROS unobtainable due to clinical condition. Subjective: 03/10: extubated yesterday. neuro intact. carotid doppler suggestive of left carotid dissection. lactate cleared. uop adequate. chest tubes now with minimal output. 03/11: doing very well. denies complaints. CT aortogram with known dissection, but without involvement of critical branch vessels. Objective Vital Signs / I&O: Vital Signs 03/10/18 19:00 03/10/18 20:01 03/10/18 22:20 Temperature 36.7 C Pulse Rate 92 H 91 H Respiratory Rate 18 22 16 Blood Pressure 120/59 L Pulse Oximetry 92 L 03/10/18 22:47 03/10/18 23:00 03/11/18 00:50 Temperature Pulse Rate 89 Respiratory Rate 16 Blood Pressure Pulse Oximetry 90 L 03/11/18 03:00 03/11/18 06:42 03/11/18 07:00 Temperature 36.8 C 36.6 C Pulse Rate 96 H 87 Respiratory Rate 18 16 18 Blood Pressure 104/58 L 111/59 L Pulse Oximetry 94 L 95 03/11/18 09:53 03/11/18 09:56 03/11/18 10:00 Temperature Pulse Rate 88 Respiratory Rate 20 16 Blood Pressure Pulse Oximetry 94 L 03/11/18 10:54 03/11/18 11:00 03/11/18 14:02 Temperature 36.8 C Pulse Rate 82 87 Respiratory Rate 18 18 Blood Pressure 97/56 L Pulse Oximetry 95 95 03/11/18 15:00 Temperature 36.9 C Pulse Rate 90 Respiratory Rate 16 Blood Pressure 101/60 Pulse Oximetry 94 L Intake & Output 03/10/18 03/11/18 03/11/18 18:59 06:59 18:59 Intake Total 155 / 155 680 / 680 980 / 980 Output Total 705 / 705 925 / 925 1525 / 1525 Balance -550 / -550 -245 / -245 -545 / -545 Weight 88 kg Intake: IV 155 / 155 NovoLIN R (IV Infusion) 100 55 / 55 UNIT In NS Inj 99 ML @ 3 UNITS/ HR 3 mls/hr IV.CONT TITRATE PRN Rx#:[id number] Magnesium Sulfate Inj 2 GM In 100 / 100 NS Inj 96 ML @ 50 mls/hr IV.SIG ONCE ONE Rx#:[id number] Oral 680 / 680 980 / 980 Output: Urine 625 / 625 925 / 925 1525 / 1525 Stool 0 / 0 Chest Tube Drainage 80 / 80 Mediastinal 80 / 80 Result Diagrams: 03/11/18 04:30 03/11/18 04:30 Objective Remarks: GENERAL: Middle-aged female, sitting in a chair, awake, alert. no acute distress. HEENT: Normocephalic. Atraumatic. Pupils equal, round, reactive, conjugate. Mucous membranes are moist NECK: Trachea is midline. There is no JVD. Right IJ introducer sheath in place , c/d/i. CHEST: Midline sternal incision with dressing intact. Equal chest rise. nc o2. CARDIOVASCULAR: normal rate, regular rhythm. Sinus. ABDOMEN: Soft, nontender, nondistended. No guarding. MUSCULOSKELETAL: Pulses 2+. No peripheral edema. NEUROLOGICAL: RASS 0. follows commands briskly. CAM-. KRANTHI 5/5 all 4 extremities. No focal deficits. Assessment and Plan - Assessment and Plan Plan: Assessment: 52-year-old female with inferior RCA STEMI and type a dissection now postop day 2 status post emergent ascending aortic repair. Active Problems: inferior STEMI s/p PCI to RCA RCA dissection Type A dissection s/p emergent ascending aortic repair 03/09 Plan: - CT aortogram without branch vessel involvement - likely medical management going forward - would prefer to keep in ICU one more day given large operation - ok for d/c art line today - keep central line until tomorrow - voiding on own - continue beta blockade - continue diuresis - oob with PT - ASA, Plavix - goal SBP 100 - 120 - OOB - PT consult Critical care medicine will continue to follow while patient remains in the CVICU, will likely sign off in AM if continues to clinically improve.
[2018-03-11] MEDS ORDERED: Influenza (Quadrivalent) Vaccine 0.5 ML Syringe IM ONE (18:45)
[2018-03-12 04:46] LABS: Hematocrit 30.4 % (35.0-46.0); Hemoglobin 10.2 gm/dL (11.6-15.3); Mean Corpuscular HGB Conc 33.5 % (32.0-36.0); Mean Corpuscular Volume 89.6 fL (80.0-100.0); Platelet Count 141 th/mm3 (150-450); Red Blood Count 3.39 mil/mm3 (4.00-5.30); Red Cell Distribution Width 13.7 % (11.6-17.2); White Blood Count 14.6 th/mm3 (4.0-11.0)
[2018-03-12 05:27] LABS: Anion Gap 6 meq/L (5-15); Blood Urea Nitrogen 9 mg/dL (7-18); Calcium 7.6 mg/dL (8.5-10.1); Chloride 101 meq/L (98-107); Glomerular Filtration Rate Greater Than 89 mL/min (>89); Glucose,Random 126 mg/dL (74-106); Magnesium 2.2 mg/dL (1.5-2.5); Potassium 3.4 meq/L (3.5-5.1); Sodium 138 meq/L (136-145)
--- NOTE | 2018-03-12 06:11 | XR ---
EXAM DATE: 03/12/2018 5:56 AM EST AGE/SEX: 52 years / Female INDICATIONS: Chest tube removal. Rule our PTX. CLINICAL DATA: This is the patient's subsequent encounter. Patient reports that signs and symptoms h ave been present for 3 days and indicates a pain score of Nonresponsive. MEDICAL/SURGICAL HISTORY: None. CABG. Chest tube. COMPARISON: [facility] [place] CHEST 1V SINGLE AP, 03/10/2018. . FINDINGS: Portable AP view of the chest demonstrates a normal-sized cardiac silhouette in this patient post med monica sternotomy. Right IJ line distal tip is in the SVC. Lungs are underinflated with mild bibasilar a telectasis. No definite effusion or pneumothorax is identified. Bones and soft tissues demonstrate no acute finding. The left chest tube is removed. CONCLUSION: The left chest tube has been removed and no pneumothorax is visualized. Lungs are underinflated and t here is bibasilar atelectasis. Electronically signed by: Bob Holman MD 03/12/2018 6:10 AM EST
[2018-03-12] MEDS: Docusate Sodium 100 MG Capsule PO SCH ×2 (08:18→21:57)
[2018-03-12] MEDS: Polyethylene Glycol 3350 17 GM Packet PO SCH (08:18)
[2018-03-12] MEDS: Amiodarone 200 MG Tablet PO SCH ×2 (08:19→21:58)
[2018-03-12] MEDS: Multivitamin/Minerals Therapeutic Tablet PO SCH (08:20)
[2018-03-12] MEDS: Metoprolol Tartrate 25 MG Tablet PO SCH ×3 (08:20→21:57)
[2018-03-12] MEDS: Insulin NovoLOG Aspart Correctional Sugar Inj SQ SCH ×4 (08:21→21:56)
--- NOTE | 2018-03-12 09:04 | P.PNCC ---
Subjective Subjective Remarks/Hospital Course: Hospital Course: 52yF who presented with inferior STEMI, taken to laborer powerhouse by Dr. Hall. during cath, noted RCA dissection which was immediately stented. after this, noted ascending aortic dissection. discussed with Dr. Jovel and taken emergently to OR. I was asked to assist with the JUNIOR evaluation and hemodynamic management in the perioperative period. I evaluated the patient in the OR immediately after induction of anesthesia. I placed JUNIOR probe for perioperative monitoring and decision-making as well as formal evaluation of ventricular function and evaluation of the evolution of the dissection for operative decisionmaking (see separate procedure note for details). Patient underwent ascending aortic repair (valve/root sparing). Patient arrived to the CVICU in intubated condition, on clevidipine. adequate uop intra-operatively. chest tube output over first hour was 80mL which improved to 30mL second hour. lactate clearing. ROS unobtainable due to clinical condition. Subjective: 03/10: extubated yesterday. neuro intact. carotid doppler suggestive of left carotid dissection. lactate cleared. uop adequate. chest tubes now with minimal output. 03/11: doing very well. denies complaints. CT aortogram with known dissection, but without involvement of critical branch vessels. 03/12: no complaints. no changes. doing well. HR still mildly elevated, increasing beta blockade. continues to do well with diuresis. Objective Vital Signs / I&O: Vital Signs 03/11/18 09:53 03/11/18 09:56 03/11/18 10:00 Temperature Pulse Rate 88 Respiratory Rate 20 16 Blood Pressure Pulse Oximetry 94 L 03/11/18 10:54 03/11/18 11:00 03/11/18 14:02 Temperature 36.8 C Pulse Rate 82 87 Respiratory Rate 18 18 Blood Pressure 97/56 L Pulse Oximetry 95 95 03/11/18 15:00 03/11/18 19:00 03/11/18 21:09 Temperature 36.9 C 36.9 C Pulse Rate 90 87 88 Respiratory Rate 16 16 16 Blood Pressure 101/60 107/63 Pulse Oximetry 94 L 95 93 L 03/11/18 23:00 03/12/18 03:00 03/12/18 07:00 Temperature 37.0 C 37.0 C 36.8 C Pulse Rate 84 84 78 Respiratory Rate 16 16 16 Blood Pressure 160/54 H 91/39 L 98/56 L Pulse Oximetry 95 95 94 L 03/12/18 08:19 03/12/18 08:22 03/12/18 08:23 Temperature Pulse Rate 103 H Respiratory Rate 18 16 Blood Pressure Pulse Oximetry 92 L Intake & Output 03/11/18 03/12/18 03/12/18 18:59 06:59 18:59 Intake Total 980 / 980 980 / 980 Output Total 1525 / 1525 890 / 890 Balance -545 / -545 90 / 90 Weight 88 kg Intake: Oral 980 / 980 980 / 980 Output: Urine 1525 / 1525 890 / 890 Stool 0 / 0 Other: Date of Last Bowel Movement 03/09/18 Result Diagrams: 03/12/18 04:00 03/12/18 04:00 Objective Remarks: GENERAL: Middle-aged female, sitting in a chair, awake, alert. no acute distress. HEENT: Normocephalic. Atraumatic. Pupils equal, round, reactive, conjugate. Mucous membranes are moist NECK: Trachea is midline. There is no JVD. CHEST: Midline sternal incision with dressing intact. Equal chest rise. nc o2. CARDIOVASCULAR: normal rate, regular rhythm. Sinus. ABDOMEN: Soft, nontender, nondistended. No guarding. MUSCULOSKELETAL: Pulses 2+. No peripheral edema. NEUROLOGICAL: RASS 0. follows commands briskly. CAM-. KRANTHI 5/5 all 4 extremities. No focal deficits. Assessment and Plan - Assessment and Plan Plan: Assessment: 52-year-old female with inferior RCA STEMI and type a dissection now postop day 3 status post emergent ascending aortic repair. stable to transfer out of ICU. Active Problems: inferior STEMI s/p PCI to RCA RCA dissection Type A dissection s/p emergent ascending aortic repair 03/09 Plan: - CT aortogram without branch vessel involvement - likely medical management going forward - d/c central line today - increase lopressor to 25mg po BID - forced diuresis - voiding on own - oob with PT - ASA, Plavix - goal SBP 100 - 120 - OOB - PT consult Critical care medicine will sign off. transfer out of ICU.
--- NOTE | 2018-03-12 09:56 | P.PNCV ---
- Note Subjective/Hospital Course: A 52-year-old patient with a history of coronary artery disease and a prior MO, who apparently had an intervention approximately 10 years ago and does have a history of some hypertension, presented to the emergency room with an acute onset of severe chest pain, 01/20. The pain was in the middle of her chest, radiating to the back of her scapular area, sharp shooting pain. Upon admission to the emergency department, she was found to have an acute ST segment MO, inferior wall. The patient was emergently taken to cardiac catheterization for attempted revascularization of the RCA. There was also concern initially for an ascending aortic dissection involving the origin of the right coronary artery with compromised flow. The patient underwent emergent catheterization and had a successful PCI with a bare metal stent to reestablish flow in the right coronary artery. The patient continued having presentation of dissection of the ascending aorta, type A. She was emergently taken to the operating room for emergent surgery. PAST MEDICAL HISTORY: Again includes coronary artery disease, now status post bare metal stent to the RCA, hypertension. - Preoperative Diagnosis (1) Acute ST elevation myocardial infarction (STEMI) (2) Ascending aortic dissection Postoperative Diagnosis: same Date of procedure: 03/09/18 Procedure: Median sternotomy for repair of Type A aortic dissection Left groin cut down for femoral arterial cannulation JUNIOR Implants: 26 Hemashield graft EXTUBATED AFTER SURGERY, 03/10 on cleviprex to keep SBP<120on nasal cannula up in chair, alert and oriented plan to repeat CT chest in am start plavix today, on low dose BB keep in CVICU 03/11 off cleviprex, on low dose BB CT chest stable no carotid or subclavian dissection eval for transfer to stepdown continue ASA, statin plavix chest tube dc , check CXR in am OOB with PT , pain control 03/12 + weight , continue daily diuresis increase BB as tolerated replace K+ stable to transfer to stepdown discussed with CCM Objective: Vital Signs - 24 hr 03/11/18 09:56 03/11/18 10:00 03/11/18 10:54 Temperature Pulse Rate Respiratory Rate 16 Blood Pressure Pulse Oximetry 94 L 95 03/11/18 11:00 03/11/18 14:02 03/11/18 15:00 Temperature 98.2 F 98.4 F Pulse Rate 82 87 90 Respiratory Rate 18 18 16 Blood Pressure 97/56 L 101/60 Pulse Oximetry 95 94 L 03/11/18 19:00 03/11/18 21:09 03/11/18 23:00 Temperature 98.5 F 98.6 F Pulse Rate 87 88 84 Respiratory Rate 16 16 16 Blood Pressure 107/63 160/54 H Pulse Oximetry 95 93 L 95 03/12/18 03:00 03/12/18 07:00 03/12/18 08:19 Temperature 98.6 F 98.2 F Pulse Rate 84 78 Respiratory Rate 16 16 Blood Pressure 91/39 L 98/56 L Pulse Oximetry 95 94 L 92 L 03/12/18 08:22 03/12/18 08:23 Temperature Pulse Rate 103 H Respiratory Rate 18 16 Blood Pressure Pulse Oximetry GENERAL: A&O x 3 SKIN: Warm and dry. prevena dressing to chest , HEAD: Normocephalic. EYES: No scleral icterus. No injection or drainage. NECK: Supple, trachea midline. No JVD or lymphadenopathy. CARDIOVASCULAR: Regular rate and rhythm without murmurs, gallops, or rubs. mild general edema RESPIRATORY: Breath sounds equal bilaterally. No accessory muscle use. diminished in bases GASTROINTESTINAL: Abdomen soft, non-tender, nondistended. MUSCULOSKELETAL: No cyanosis, or edema. BACK: Nontender without obvious deformity. No CVA tenderness. Labs: Laboratory Results - last 12 hr 03/09/18 03/09/18 03/12/18 11:39 12:48 04:00 WBC 14.6 H RBC 3.39 L Hgb 10.2 L Hct 30.4 L MCV 89.6 MCH 30.0 MCHC 33.5 RDW 13.7 Plt Count 141 L MPV 10.0 Sodium Potassium Chloride Carbon Dioxide Anion Gap BUN Creatinine Estimated GFR POC Glucose Random Glucose Calcium Magnesium MTS Gel Crossmatch See Detail See Detail 03/12/18 03/12/18 04:00 08:05 WBC RBC Hgb Hct MCV MCH MCHC RDW Plt Count MPV Sodium 138 Potassium 3.4 L D Chloride 101 Carbon Dioxide 31.0 Anion Gap 6 BUN 9 Creatinine 0.53 Estimated GFR Greater than 89 POC Glucose 116 H Random Glucose 126 H Calcium 7.6 L Magnesium 2.2 MTS Gel Crossmatch Result Diagrams: 03/12/18 04:00 03/12/18 04:00 - Plan (1) Acute ST elevation myocardial infarction (STEMI) (3) Hypertension Plan: keep SBP<120 (4) Hx of repair of ascending aorta Plan: on ASA, plavix pulm toileting OOB ambulate amiodarone increase BB continue diuresis maintain SBP<130-140 carotid us : CONCLUSION: 1. Extremely Limited examination with nonvisualization of the right carotid artery. 2. Findings concerning for left common carotid dissection. Recommend carotid CT angiography for further evaluation. CT CONCLUSION: 03/11 1. 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 2. No evidence of dissection propagation into the carotids or subclavians 3. Descending aortic dissection with relatively mild true luminal compromise. Satisfactory preservation of flow in the celiac and SMA. Dissection terminates above the renal artery origins transfer to stepdown (1) Acute ST elevation myocardial infarction (STEMI) Qualifiers: Involved coronary artery: right coronary artery Qualified Code(s): I21.11 - ST elevation (STEMI) myocardial infarction involving right coronary artery
[2018-03-12] MEDS: Acetaminophen 325 MG Tablet PO PRN (21:57)
--- NOTE | 2018-03-13 08:40 | P.PNCV ---
- Note Subjective/Hospital Course: A 52-year-old patient with a history of coronary artery disease and a prior [place], who apparently had an intervention approximately 10 years ago and does have a history of some hypertension, presented to the emergency room with an acute onset of severe chest pain, 01/20. The pain was in the middle of her chest, radiating to the back of her scapular area, sharp shooting pain. Upon admission to the emergency department, she was found to have an acute ST segment [place], inferior wall. The patient was emergently taken to cardiac catheterization for attempted revascularization of the RCA. There was also concern initially for an ascending aortic dissection involving the origin of the right coronary artery with compromised flow. The patient underwent emergent catheterization and had a successful PCI with a bare metal stent to reestablish flow in the right coronary artery. The patient continued having presentation of dissection of the ascending aorta, type A. She was emergently taken to the operating room for emergent surgery. PAST MEDICAL HISTORY: Again includes coronary artery disease, now status post bare metal stent to the RCA, hypertension. - Preoperative Diagnosis (1) Acute ST elevation myocardial infarction (STEMI) (2) Ascending aortic dissection Postoperative Diagnosis: same Date of procedure: 03/09/18 Procedure: Median sternotomy for repair of Type A aortic dissection Left groin cut down for femoral arterial cannulation JUNIOR Implants: 26 Hemashield graft EXTUBATED AFTER SURGERY, 03/10 on cleviprex to keep SBP<120on nasal cannula up in chair, alert and oriented plan to repeat CT chest in am start plavix today, on low dose BB keep in CVICU 03/11 off cleviprex, on low dose BB CT chest stable no carotid or subclavian dissection eval for transfer to stepdown continue ASA, statin plavix chest tube dc , check CXR in am OOB with PT , pain control 03/12 + weight , continue daily diuresis increase BB as tolerated replace K+ stable to transfer to stepdown discussed with CCM 03/13 Clinically and hemodynamically stable Continue with physical therapy Discharge disposition Objective: Vital Signs - 24 hr 03/12/18 10:00 03/12/18 11:00 03/12/18 12:00 Temperature 97.9 F Pulse Rate 89 78 84 Respiratory Rate 18 Blood Pressure 109/67 Pulse Oximetry 94 L 03/12/18 13:00 03/12/18 14:00 03/12/18 15:00 Temperature 98.4 F Pulse Rate 74 72 82 Respiratory Rate 18 Blood Pressure 92/55 L Pulse Oximetry 96 03/12/18 16:00 03/12/18 16:10 03/12/18 16:11 Temperature Pulse Rate 86 89 Respiratory Rate 18 Blood Pressure Pulse Oximetry 95 03/12/18 19:00 03/12/18 21:16 03/12/18 23:00 Temperature 99.8 F H 100.5 F H Pulse Rate 91 H 89 93 H Respiratory Rate 20 19 18 Blood Pressure 86/54 L 100/52 L Pulse Oximetry 95 96 97 03/13/18 03:00 03/13/18 04:43 03/13/18 07:00 Temperature Pulse Rate 92 H 92 H 88 Respiratory Rate 18 17 Blood Pressure Pulse Oximetry 97 Result Diagrams: 03/12/18 04:00 03/12/18 04:00 - Plan (1) Acute ST elevation myocardial infarction (STEMI) (3) Hypertension Plan: keep SBP<120 (4) Hx of repair of ascending aorta Plan: on ASA, plavix pulm toileting OOB ambulate amiodarone increase BB continue diuresis maintain SBP<130-140 carotid us : CONCLUSION: 1. Extremely Limited examination with nonvisualization of the right carotid artery. 2. Findings concerning for left common carotid dissection. Recommend carotid CT angiography for further evaluation. CT CONCLUSION: 03/11 1. 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 2. No evidence of dissection propagation into the carotids or subclavians 3. Descending aortic dissection with relatively mild true luminal compromise. Satisfactory preservation of flow in the celiac and SMA. Dissection terminates above the renal artery origins transfer to stepdown (1) Acute ST elevation myocardial infarction (STEMI) Qualifiers: Involved coronary artery: right coronary artery Qualified Code(s): I21.11 - ST elevation (STEMI) myocardial infarction involving right coronary artery
[2018-03-13] MEDS: Polyethylene Glycol 3350 17 GM Packet PO SCH (09:27)
[2018-03-13] MEDS: Amiodarone 200 MG Tablet PO SCH ×2 (09:28→20:17)
[2018-03-13] MEDS: Docusate Sodium 100 MG Capsule PO SCH ×2 (09:28→20:18)
[2018-03-13] MEDS: Multivitamin/Minerals Therapeutic Tablet PO SCH (09:29)
[2018-03-13] MEDS: Metoprolol Tartrate 25 MG Tablet PO SCH ×2 (09:29→20:17)
[2018-03-13] MEDS: Insulin NovoLOG Aspart Correctional Sugar Inj SQ SCH ×4 (09:29→20:18)
[2018-03-14] MEDS: Insulin NovoLOG Aspart Correctional Sugar Inj SQ SCH ×4 (08:49→21:31)
--- NOTE | 2018-03-14 08:49 | P.PNCV ---
- Note Subjective/Hospital Course: A 52-year-old patient with a history of coronary artery disease and a prior [place], who apparently had an intervention approximately 10 years ago and does have a history of some hypertension, presented to the emergency room with an acute onset of severe chest pain, 01/20. The pain was in the middle of her chest, radiating to the back of her scapular area, sharp shooting pain. Upon admission to the emergency department, she was found to have an acute ST segment [place], inferior wall. The patient was emergently taken to cardiac catheterization for attempted revascularization of the RCA. There was also concern initially for an ascending aortic dissection involving the origin of the right coronary artery with compromised flow. The patient underwent emergent catheterization and had a successful PCI with a bare metal stent to reestablish flow in the right coronary artery. The patient continued having presentation of dissection of the ascending aorta, type A. She was emergently taken to the operating room for emergent surgery. PAST MEDICAL HISTORY: Again includes coronary artery disease, now status post bare metal stent to the RCA, hypertension. - Preoperative Diagnosis (1) Acute ST elevation myocardial infarction (STEMI) (2) Ascending aortic dissection Postoperative Diagnosis: same Date of procedure: 03/09/18 Procedure: Median sternotomy for repair of Type A aortic dissection Left groin cut down for femoral arterial cannulation JUNIOR Implants: 26 Hemashield graft EXTUBATED AFTER SURGERY, 03/10 on cleviprex to keep SBP<120on nasal cannula up in chair, alert and oriented plan to repeat CT chest in am start plavix today, on low dose BB keep in CVICU 03/11 off cleviprex, on low dose BB CT chest stable no carotid or subclavian dissection eval for transfer to stepdown continue ASA, statin plavix chest tube dc , check CXR in am OOB with PT , pain control 03/12 + weight , continue daily diuresis increase BB as tolerated replace K+ stable to transfer to stepdown discussed with CCM 03/13 Clinically and hemodynamically stable Continue with physical therapy Discharge disposition 03/14 Doing well On 2 L nasal cannula with O2 sats 92 Weaning O2 as tolerated Possible discharge in a.m. Objective: Vital Signs - 24 hr 03/13/18 09:00 03/13/18 09:48 03/13/18 10:00 Temperature Pulse Rate 86 81 87 Respiratory Rate 16 Blood Pressure Pulse Oximetry 95 03/13/18 11:00 03/13/18 12:00 03/13/18 13:00 Temperature 98.7 F Pulse Rate 81 84 82 Respiratory Rate 18 Blood Pressure 104/52 L Pulse Oximetry 97 03/13/18 14:00 03/13/18 15:00 03/13/18 15:27 Temperature 98.6 F Pulse Rate 88 91 H 88 Respiratory Rate 18 16 Blood Pressure 102/52 L Pulse Oximetry 96 03/13/18 16:00 03/13/18 17:00 03/13/18 18:00 Temperature Pulse Rate 88 86 86 Respiratory Rate Blood Pressure Pulse Oximetry 03/13/18 19:00 03/13/18 20:00 03/13/18 20:58 Temperature 98.9 F Pulse Rate 92 H 104 H Respiratory Rate 18 Blood Pressure 127/62 Pulse Oximetry 95 93 L 03/13/18 21:00 03/13/18 22:00 03/13/18 23:00 Temperature 98.9 F Pulse Rate 86 82 82 Respiratory Rate 18 Blood Pressure 107/50 L Pulse Oximetry 95 03/14/18 00:00 03/14/18 01:00 03/14/18 02:00 Temperature Pulse Rate 74 76 84 Respiratory Rate Blood Pressure Pulse Oximetry 03/14/18 03:00 03/14/18 04:00 03/14/18 05:00 Temperature 98.9 F Pulse Rate 85 82 80 Respiratory Rate 20 Blood Pressure 117/58 L Pulse Oximetry 93 L 03/14/18 06:00 Temperature Pulse Rate 82 Respiratory Rate Blood Pressure Pulse Oximetry Labs: Laboratory Results - last 12 hr 03/14/18 08:01 POC Glucose 117 H Result Diagrams: 03/12/18 04:00 03/12/18 04:00 - Plan (1) Acute ST elevation myocardial infarction (STEMI) (3) Hypertension Plan: keep SBP<120 (4) Hx of repair of ascending aorta Plan: on ASA, plavix pulm toileting OOB ambulate amiodarone increase BB continue diuresis maintain SBP<130-140 carotid us : CONCLUSION: 1. Extremely Limited examination with nonvisualization of the right carotid artery. 2. Findings concerning for left common carotid dissection. Recommend carotid CT angiography for further evaluation. CT CONCLUSION: 03/11 1. 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 2. No evidence of dissection propagation into the carotids or subclavians 3. Descending aortic dissection with relatively mild true luminal compromise. Satisfactory preservation of flow in the celiac and SMA. Dissection terminates above the renal artery origins transfer to stepdown (1) Acute ST elevation myocardial infarction (STEMI) Qualifiers: Involved coronary artery: right coronary artery Qualified Code(s): I21.11 - ST elevation (STEMI) myocardial infarction involving right coronary artery
[2018-03-14] MEDS: Amiodarone 200 MG Tablet PO SCH ×2 (08:53→21:31)
[2018-03-14] MEDS: Multivitamin/Minerals Therapeutic Tablet PO SCH (08:54)
[2018-03-14] MEDS: Metoprolol Tartrate 25 MG Tablet PO SCH ×2 (08:54→21:31)
[2018-03-14] MEDS: Docusate Sodium 100 MG Capsule PO SCH ×2 (08:54→21:31)
[2018-03-14] MEDS: Polyethylene Glycol 3350 17 GM Packet PO SCH (08:55)
[2018-03-15] MEDS: Insulin NovoLOG Aspart Correctional Sugar Inj SQ SCH ×4 (08:09→20:27)
[2018-03-15] MEDS: Multivitamin/Minerals Therapeutic Tablet PO SCH (08:17)
[2018-03-15] MEDS: Amiodarone 200 MG Tablet PO SCH ×2 (08:17→20:25)
[2018-03-15] MEDS: Metoprolol Tartrate 25 MG Tablet PO SCH ×2 (08:17→20:25)
[2018-03-15] MEDS: Docusate Sodium 100 MG Capsule PO SCH ×2 (08:18→20:25)
[2018-03-15] MEDS: Polyethylene Glycol 3350 17 GM Packet PO SCH (08:18)
--- NOTE | 2018-03-15 14:02 | P.DS ---
Date of admission: 03/09/18 10:46 Primary care physician: UNKNOWN Attending physician on discharge: Chery Jovel Anticipated date of discharge: 03/15/18 Brief History from admission: A 52-year-old patient with a history of coronary artery disease and a prior [place], who apparently had an intervention approximately 10 years ago and does have a history of some hypertension, presented to the emergency room with an acute onset of severe chest pain, 01/20. The pain was in the middle of her chest, radiating to the back of her scapular area, sharp shooting pain. Upon admission to the emergency department, she was found to have an acute ST segment [place], inferior wall. The patient was emergently taken to cardiac catheterization for attempted revascularization of the RCA. There was also concern initially for an ascending aortic dissection involving the origin of the right coronary artery with compromised flow. The patient underwent emergent catheterization and had a successful PCI with a bare metal stent to reestablish flow in the right coronary artery. The patient continued having presentation of dissection of the ascending aorta, type A. She was emergently taken to the operating room for emergent surgery. PAST MEDICAL HISTORY: Again includes coronary artery disease, now status post bare metal stent to the RCA, hypertension. Patient update on day of discharge: pt 85% room air when ambulating , will need home 02 will add diuretics for dc DS: Diagnosis - Discharge Diagnosis (1) Acute ST elevation myocardial infarction (STEMI) Status: Acute (2) Ascending aortic dissection Status: Acute (3) Hypertension Status: Chronic (4) S/P ascending aortic aneurysm repair Status: Acute DS: Summary Hospital Course: Preoperative Diagnosis (1) Acute ST elevation myocardial infarction (STEMI) (2) Ascending aortic dissection Postoperative Diagnosis: same Date of procedure: 03/09/18 Procedure: Median sternotomy for repair of Type A aortic dissection Left groin cut down for femoral arterial cannulation JUNIOR Implants: 26 Hemashield graft EXTUBATED AFTER SURGERY, 03/10 on cleviprex to keep SBP<120on nasal cannula up in chair, alert and oriented plan to repeat CT chest in am start plavix today, on low dose BB keep in CVICU 03/11 off cleviprex, on low dose BB CT chest stable no carotid or subclavian dissection eval for transfer to stepdown continue ASA, statin plavix chest tube dc , check CXR in am OOB with PT , pain control 11/30 + weight , continue daily diuresis increase BB as tolerated replace K+ stable to transfer to stepdown discussed with CCM 03/13 Clinically and hemodynamically stable Continue with physical therapy Discharge disposition 03/14 Doing well On 2 L nasal cannula with O2 sats 92 Weaning O2 as tolerated Possible discharge in a.m. - Time Spent with Patient Total time spent providing and/or coordinating discharge services: Greater than 30 minutes Exam Vital signs: Vital Signs 03/14/18 14:00 03/14/18 14:55 03/14/18 15:00 Temperature 99 F Pulse Rate 86 88 89 Respiratory Rate 20 Blood Pressure 108/52 L Pulse Oximetry 99 03/14/18 16:00 03/14/18 17:00 03/14/18 18:00 Temperature Pulse Rate 105 H 98 H 94 H Respiratory Rate Blood Pressure Pulse Oximetry 03/14/18 19:00 03/14/18 20:00 03/14/18 20:21 Temperature 98.9 F Pulse Rate 94 H 80 Respiratory Rate 17 Blood Pressure 120/59 L Pulse Oximetry 93 L 03/14/18 21:00 03/14/18 22:00 03/14/18 23:00 Temperature 98.7 F Pulse Rate 88 80 80 Respiratory Rate 18 Blood Pressure 110/70 Pulse Oximetry 94 L 03/15/18 00:00 03/15/18 02:00 03/15/18 03:00 Temperature 98.7 F Pulse Rate 73 80 90 Respiratory Rate 18 Blood Pressure 110/59 L Pulse Oximetry 96 03/15/18 04:00 03/15/18 05:00 03/15/18 05:46 Temperature Pulse Rate 84 85 86 Respiratory Rate Blood Pressure Pulse Oximetry 03/15/18 07:00 03/15/18 08:18 03/15/18 09:21 Temperature 98.2 F Pulse Rate 90 Respiratory Rate 16 16 Blood Pressure 115/59 L Pulse Oximetry 94 L 94 L 03/15/18 11:00 03/15/18 12:00 Temperature 99 F Pulse Rate 84 91 H Respiratory Rate 16 Blood Pressure 106/56 L Pulse Oximetry 92 L Intake & Output 03/14/18 03/15/18 03/15/18 18:59 06:59 18:59 Intake Total 960 / 960 240 / 240 Output Total 1200 / 1200 300 / 300 Balance -240 / -240 -60 / -60 Weight 88 kg Intake: Oral 960 / 960 240 / 240 Output: Urine 1200 / 1200 300 / 300 Other: Date of Last Bowel Movement 03/13/18 # Bowel Movements 0 - Constitutional no acute distress - Routine HEENT Exam Head: Present: normocephalic, atraumatic Eye: Present: EOMI, PERRL, normal accommodation - Routine Neck Exam Present: supple, full ROM - Routine Chest/Breast/Axilla Exam Chest wall: Present: tenderness - Routine Respiratory Exam Present: CTA bilaterally - Routine Cardiovascular Exam Present: RRR, S1, S2 - Routine Abdominal Exam Present: soft, normoactive bowel sounds - Routine Extremities Exam Present: pulses intact, normal capillary refill - Routine Skin Exam Present: intact, wounds Comments: prevena dressing to chest - Routine Neurological Exam Present: alert, oriented X3, CN II-XII intact Results Procedures completed during hospitalization: CARDIOLOGY REPORT - Continued Ordered By: Ganesh Hall MD MR#: [id number] : 1965 Attended By: Felipe Benitez DO Loc: [facility] Age: 52 Copy To: UNKNOWN Pt Name: Olga Calle Bed: C34A-P Order #: [id number] Page 2 of 2 Signed Report #:[id number] Cardiology Protocol [facility] [address] [place] [address] Ordered By: Ganesh Hall MD MR#: [id number] : 1965 Attended By: Felipe Benitez DO Loc: [facility] Age: 52 Copy To: UNKNOWN Bed: C34A-P Order #: [id number] Page 1 of 2 Signed Report #:[id number] Cardiology Protocol Olga Calle Echo Transesophageal Indication: CONCLUSIONS Normal left ventricular size and wall thickness. The left ventricular systolic function is normal with an estimated ejection fraction in the range of 60-65%. Left ventricular diastolic function parameters are normal. The ascending aorta was normal in size. There is a dissection with false lumen and flap in the early ascending portion above the sinus of Valsalva with large false lumen. The dissection flap extends up to the level of the right subclavian artery. The left carotid artery does not appear to be compromised. The descending thoracic aorta was normal in size without evidence of dissection. BP: / HR: Rhythm: Technical Quality: Medications Complications Proc. Components The patient was brought to the diagnostic imaging area in a fasting state after obtaining an informed consent. The patient was premedicated with IV Versed and IV Fentanyl. The posterior pharynx was sprayed with Cetacaine spray and the patient was administered viscous Xylocaine 2%. The JUNIOR probe was passed into the posterior pharynx , mid-esophagus, distal esophagus, and gastric fundus. JUNIOR was performed at multiple levels. The patient tolerated the procedure well and there were no complications. FINDINGS LEFT VENTRICLE Normal left ventricular size and wall thickness. The left ventricular systolic function is normal with an estimated ejection fraction in the range of 60-65%. Left ventricular diastolic function parameters are normal. RIGHT VENTRICLE Normal right ventricular size and systolic function. LEFT ATRIUM The left atrial size is normal. RIGHT ATRIUM The right atrial size is normal. ATRIAL SEPTUM Normal atrial septal thickness without atrial level shunting by limited color doppler interrogation. AORTA The ascending aorta was normal in size. There is a dissection with false lumen and flap in the early ascending portion above the sinus of Valsalva with large false lumen. The dissection flap extends up to the level of the right subclavian artery. The left carotid artery does not appear to be compromised. The descending thoracic aorta was normal in size without evidence of dissection. MITRAL VALVE Structurally normal mitral valve. No mitral valve stenosis or regurgitation. AORTIC VALVE Trileaflet aortic valve. No aortic valve stenosis or regurgitation. TRICUSPID VALVE Structurally normal tricuspid valve. No tricuspid valve stenosis or regurgitation. VESSELS The inferior vena cava is normal in size. PULMONARY VALVE The pulmonary valve is not well visualized. PERICADIUM No pericardial effusion. Preoperative Diagnosis (1) Acute ST elevation myocardial infarction (STEMI) (2) Ascending aortic dissection Postoperative Diagnosis: same Date of procedure: 03/09/18 Procedure: Median sternotomy for repair of Type A aortic dissection Left groin cut down for femoral arterial cannulation JUNIOR Implants: 26 Hemashield graft Completed studies during hospitalization: Pending at discharge 03/09/18 09:25 Surgical [PTH] Routine Labs on day of discharge: Labs from last 24 hours 03/15/18 03/14/18 03/14/18 11:18 20:02 16:21 POC Glucose 120 H 134 H 113 H - Impressions ITS Impressions Carotid Doppler Study 03/09/18 16:31 CONCLUSION: 1. Extremely Limited examination with nonvisualization of the right carotid artery. 2. Findings concerning for left common carotid dissection. Recommend carotid CT angiography for further evaluation. Thoracic Aorta CT 03/11/18 00:00 CONCLUSION: 1. 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 2. No evidence of dissection propagation into the carotids or subclavians 3. Descending aortic dissection with relatively mild true luminal compromise. Satisfactory preservation of flow in the celiac and SMA. Dissection terminates above the renal artery origins Chest X-Ray 03/12/18 06:00 CONCLUSION: The left chest tube has been removed and no pneumothorax is visualized. Lungs are underinflated and there is bibasilar atelectasis. Discharge Plan - Discharge Disposition Patient Disposition: /Home Health Service - Discharge Condition Condition: Fair - Discharge Order Discharge Orders: Discharge Order (Routine); Ordered 03/15/18 Ordered By: Norma Kim - Discharge Details Anticipated Discharge Date: 03/15/18 - Physicians Team Primary Care Provider: UNKNOWN, Attending Provider: Felipe Benitez Other Providers: Jesus Pepe MD
[2018-03-16] MEDS: Insulin NovoLOG Aspart Correctional Sugar Inj SQ SCH ×4 (08:41→21:31)
[2018-03-16] MEDS: Metoprolol Tartrate 25 MG Tablet PO SCH ×2 (08:42→20:02)
[2018-03-16] MEDS: Amiodarone 200 MG Tablet PO SCH ×2 (08:42→20:03)
[2018-03-16] MEDS: Multivitamin/Minerals Therapeutic Tablet PO SCH (08:43)
[2018-03-16] MEDS: Docusate Sodium 100 MG Capsule PO SCH (08:43)
[2018-03-16] MEDS: Polyethylene Glycol 3350 17 GM Packet PO SCH (08:44)
--- NOTE | 2018-03-16 14:41 | P.PNCV ---
- Note Subjective/Hospital Course: A 52-year-old patient with a history of coronary artery disease and a prior CA, who apparently had an intervention approximately 10 years ago and does have a history of some hypertension, presented to the emergency room with an acute onset of severe chest pain, 01/20. The pain was in the middle of her chest, radiating to the back of her scapular area, sharp shooting pain. Upon admission to the emergency department, she was found to have an acute ST segment CA, inferior wall. The patient was emergently taken to cardiac catheterization for attempted revascularization of the RCA. There was also concern initially for an ascending aortic dissection involving the origin of the right coronary artery with compromised flow. The patient underwent emergent catheterization and had a successful PCI with a bare metal stent to reestablish flow in the right coronary artery. The patient continued having presentation of dissection of the ascending aorta, type A. She was emergently taken to the operating room for emergent surgery. PAST MEDICAL HISTORY: Again includes coronary artery disease, now status post bare metal stent to the RCA, hypertension. - Preoperative Diagnosis (1) Acute ST elevation myocardial infarction (STEMI) (2) Ascending aortic dissection Postoperative Diagnosis: same Date of procedure: 03/09/18 Procedure: Median sternotomy for repair of Type A aortic dissection Left groin cut down for femoral arterial cannulation JUNIOR Implants: 26 Hemashield graft EXTUBATED AFTER SURGERY, 03/10 on cleviprex to keep SBP<120on nasal cannula up in chair, alert and oriented plan to repeat CT chest in am start plavix today, on low dose BB keep in CVICU 03/11 off cleviprex, on low dose BB CT chest stable no carotid or subclavian dissection eval for transfer to stepdown continue ASA, statin plavix chest tube dc , check CXR in am OOB with PT , pain control 03/12 + weight , continue daily diuresis increase BB as tolerated replace K+ stable to transfer to stepdown discussed with CCM 03/13 Clinically and hemodynamically stable Continue with physical therapy Discharge disposition 03/14 Doing well On 2 L nasal cannula with O2 sats 92 Weaning O2 as tolerated Possible discharge in a.m. 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 home 02 dc when available Objective: Vital Signs - 24 hr 03/15/18 14:51 03/15/18 15:00 03/15/18 16:00 Temperature 99 F Pulse Rate 88 88 Respiratory Rate 16 Blood Pressure 114/70 Pulse Oximetry 92 L Pulse Oximetry [Exertion on Room Air] 87 L Pulse Oximetry [Exertion with Oxygen] 93 L Pulse Oximetry [Resting on Room Air] 92 L Pulse Oximetry [Resting with Oxygen] 95 03/15/18 17:00 03/15/18 18:00 03/15/18 19:00 Temperature 98.4 F Pulse Rate 92 H 92 H 96 H Respiratory Rate 18 Blood Pressure 121/59 L Pulse Oximetry 92 L Pulse Oximetry [Exertion on Room Air] Pulse Oximetry [Exertion with Oxygen] Pulse Oximetry [Resting on Room Air] Pulse Oximetry [Resting with Oxygen] 03/15/18 20:00 03/15/18 21:00 03/15/18 22:00 Temperature Pulse Rate 90 88 86 Respiratory Rate Blood Pressure Pulse Oximetry Pulse Oximetry [Exertion on Room Air] Pulse Oximetry [Exertion with Oxygen] Pulse Oximetry [Resting on Room Air] Pulse Oximetry [Resting with Oxygen] 03/15/18 23:00 03/16/18 00:00 03/16/18 01:00 Temperature 98.6 F Pulse Rate 85 78 75 Respiratory Rate 17 Blood Pressure 98/53 L Pulse Oximetry 92 L Pulse Oximetry [Exertion on Room Air] Pulse Oximetry [Exertion with Oxygen] Pulse Oximetry [Resting on Room Air] Pulse Oximetry [Resting with Oxygen] 03/16/18 02:00 03/16/18 03:44 03/16/18 04:00 Temperature 98.6 F Pulse Rate 85 86 75 Respiratory Rate 16 Blood Pressure 113/56 L Pulse Oximetry 93 L Pulse Oximetry [Exertion on Room Air] Pulse Oximetry [Exertion with Oxygen] Pulse Oximetry [Resting on Room Air] Pulse Oximetry [Resting with Oxygen] 03/16/18 05:00 03/16/18 06:00 03/16/18 08:53 Temperature Pulse Rate 80 81 Respiratory Rate Blood Pressure Pulse Oximetry 93 L Pulse Oximetry [Exertion on Room Air] Pulse Oximetry [Exertion with Oxygen] Pulse Oximetry [Resting on Room Air] Pulse Oximetry [Resting with Oxygen] 03/16/18 08:54 03/16/18 10:51 03/16/18 12:16 Temperature 98.7 F 98.5 F Pulse Rate 88 87 Respiratory Rate 17 18 Blood Pressure 117/57 L 102/57 L Pulse Oximetry 93 L 93 L 92 L Pulse Oximetry [Exertion on Room Air] Pulse Oximetry [Exertion with Oxygen] Pulse Oximetry [Resting on Room Air] Pulse Oximetry [Resting with Oxygen] 03/16/18 13:24 Temperature Pulse Rate Respiratory Rate Blood Pressure Pulse Oximetry Pulse Oximetry [Exertion on Room Air] 86 L Pulse Oximetry [Exertion with Oxygen] 90 L Pulse Oximetry [Resting on Room Air] 91 L Pulse Oximetry [Resting with Oxygen] 94 L GENERAL: A&O x 3 SKIN: Warm and dry. prevena dressing to chest HEAD: Normocephalic. EYES: No scleral icterus. No injection or drainage. NECK: Supple, trachea midline. No JVD or lymphadenopathy. CARDIOVASCULAR: Regular rate and rhythm without murmurs, gallops, or rubs. RESPIRATORY: Breath sounds equal bilaterally. No accessory muscle use. GASTROINTESTINAL: Abdomen soft, non-tender, nondistended. MUSCULOSKELETAL: No cyanosis, or edema. BACK: Nontender without obvious deformity. No CVA tenderness. Labs: Laboratory Results - last 12 hr 03/16/18 03/16/18 08:36 12:13 POC Glucose 174 H 84 Result Diagrams: 03/12/18 04:00 03/12/18 04:00 Telemetry: NSR - Plan (1) Acute ST elevation myocardial infarction (STEMI) (3) Hypertension Plan: controlled on BB (4) S/P ascending aortic aneurysm repair Plan: dc home today with 02. (1) Acute ST elevation myocardial infarction (STEMI) Qualifiers: Involved coronary artery: right coronary artery Qualified Code(s): I21.11 - ST elevation (STEMI) myocardial infarction involving right coronary artery
[2018-03-17] MEDS: Docusate Sodium 100 MG Capsule PO SCH ×3 (06:30→20:04)
[2018-03-17] MEDS: Insulin NovoLOG Aspart Correctional Sugar Inj SQ SCH ×4 (07:24→22:45)
[2018-03-17] MEDS: Metoprolol Tartrate 25 MG Tablet PO SCH ×2 (08:44→20:04)
[2018-03-17] MEDS: Amiodarone 200 MG Tablet PO SCH ×2 (08:44→20:03)
[2018-03-17] MEDS: Multivitamin/Minerals Therapeutic Tablet PO SCH (08:45)
[2018-03-17] MEDS: Polyethylene Glycol 3350 17 GM Packet PO SCH (08:46)
--- NOTE | 2018-03-17 11:22 | XR ---
EXAM DATE: 03/17/2018 11:07 AM EST AGE/SEX: 52 years / Female INDICATIONS: . Evaluate for pneumonia. Patient states no chest complaints. CLINICAL DATA: This is the patient's subsequent encounter. Patient reports that signs and symptoms h ave been present for 1 week and indicates a pain score of 0/10. MEDICAL/SURGICAL HISTORY: None. . Open heart surgery February 2018. [place] [facility] [place] [facility] [place]. . FINDINGS: Frontal and lateral views of the chest demonstrate a normal-sized cardiac silhouette is patient post median sternotomy. Coronary artery stent is visualized. There is a linear opacity within the left low er lobe. No pleural effusion, airspace consolidation, or pneumothorax is identified. The bones and so ft tissues demonstrate no acute finding. CONCLUSION: There is a linear opacity in the left lower lobe with an appearance favoring subsegmental atelectasis . Otherwise, no acute finding is identified. Electronically signed by: Bob Holman MD 03/17/2018 11:21 AM EST
--- NOTE | 2018-03-17 14:41 | P.PNCV ---
- Note Subjective/Hospital Course: A 52-year-old patient with a history of coronary artery disease and a prior LA, who apparently had an intervention approximately 10 years ago and does have a history of some hypertension, presented to the emergency room with an acute onset of severe chest pain, 01/20. The pain was in the middle of her chest, radiating to the back of her scapular area, sharp shooting pain. Upon admission to the emergency department, she was found to have an acute ST segment LA, inferior wall. The patient was emergently taken to cardiac catheterization for attempted revascularization of the RCA. There was also concern initially for an ascending aortic dissection involving the origin of the right coronary artery with compromised flow. The patient underwent emergent catheterization and had a successful PCI with a bare metal stent to reestablish flow in the right coronary artery. The patient continued having presentation of dissection of the ascending aorta, type A. She was emergently taken to the operating room for emergent surgery. PAST MEDICAL HISTORY: Again includes coronary artery disease, now status post bare metal stent to the RCA, hypertension. - Preoperative Diagnosis (1) Acute ST elevation myocardial infarction (STEMI) (2) Ascending aortic dissection Postoperative Diagnosis: same Date of procedure: 03/09/18 Procedure: Median sternotomy for repair of Type A aortic dissection Left groin cut down for femoral arterial cannulation JUNIOR Implants: 26 Hemashield graft EXTUBATED AFTER SURGERY, 03/10 on cleviprex to keep SBP<120on nasal cannula up in chair, alert and oriented plan to repeat CT chest in am start plavix today, on low dose BB keep in CVICU 03/11 off cleviprex, on low dose BB CT chest stable no carotid or subclavian dissection eval for transfer to stepdown continue ASA, statin plavix chest tube dc , check CXR in am OOB with PT , pain control 03/12 + weight , continue daily diuresis increase BB as tolerated replace K+ stable to transfer to stepdown discussed with CCM 03/13 Clinically and hemodynamically stable Continue with physical therapy Discharge disposition 03/14 Doing well On 2 L nasal cannula with O2 sats 92 Weaning O2 as tolerated Possible discharge in a.m. 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 on getting home 02 dc when available 03/17 still waiting on home then dc , did not pass walk test today will evaluate at f/u [facility] office visit , if still on 02 will need pulm consult Objective: Vital Signs - 24 hr 03/16/18 15:00 03/16/18 16:00 03/16/18 16:27 Temperature 98.6 F Pulse Rate 87 92 H 94 H Respiratory Rate 18 Blood Pressure 111/55 L Pulse Oximetry 92 L Pulse Oximetry [Exertion on Room Air] Pulse Oximetry [Exertion with Oxygen] Pulse Oximetry [Resting on Room Air] Pulse Oximetry [Resting with Oxygen] 03/16/18 17:29 03/16/18 18:00 03/16/18 19:00 Temperature 97.6 F Pulse Rate 90 98 H 102 H Respiratory Rate 20 Blood Pressure 113/56 L Pulse Oximetry 90 L Pulse Oximetry [Exertion on Room Air] Pulse Oximetry [Exertion with Oxygen] Pulse Oximetry [Resting on Room Air] Pulse Oximetry [Resting with Oxygen] 03/16/18 20:00 03/16/18 21:00 03/16/18 22:00 Temperature Pulse Rate 70 72 66 Respiratory Rate Blood Pressure Pulse Oximetry Pulse Oximetry [Exertion on Room Air] Pulse Oximetry [Exertion with Oxygen] Pulse Oximetry [Resting on Room Air] Pulse Oximetry [Resting with Oxygen] 03/16/18 23:00 03/17/18 00:00 03/17/18 01:00 Temperature 97.9 F Pulse Rate 60 62 70 Respiratory Rate 22 Blood Pressure 99/50 L Pulse Oximetry 90 L Pulse Oximetry [Exertion on Room Air] Pulse Oximetry [Exertion with Oxygen] Pulse Oximetry [Resting on Room Air] Pulse Oximetry [Resting with Oxygen] 03/17/18 02:00 03/17/18 03:00 03/17/18 04:00 Temperature 98.2 F Pulse Rate 70 89 81 Respiratory Rate 21 Blood Pressure 91/51 L Pulse Oximetry 92 L Pulse Oximetry [Exertion on Room Air] Pulse Oximetry [Exertion with Oxygen] Pulse Oximetry [Resting on Room Air] Pulse Oximetry [Resting with Oxygen] 03/17/18 05:00 03/17/18 06:00 03/17/18 07:00 Temperature Pulse Rate 71 66 82 Respiratory Rate Blood Pressure Pulse Oximetry Pulse Oximetry [Exertion on Room Air] Pulse Oximetry [Exertion with Oxygen] Pulse Oximetry [Resting on Room Air] Pulse Oximetry [Resting with Oxygen] 03/17/18 08:00 03/17/18 08:56 03/17/18 09:00 Temperature 97.9 F Pulse Rate 86 82 Respiratory Rate 18 Blood Pressure 143/71 H Pulse Oximetry 96 93 L Pulse Oximetry [Exertion on Room Air] Pulse Oximetry [Exertion with Oxygen] Pulse Oximetry [Resting on Room Air] Pulse Oximetry [Resting with Oxygen] 03/17/18 09:16 03/17/18 10:00 03/17/18 10:48 Temperature Pulse Rate 82 78 Respiratory Rate 16 Blood Pressure Pulse Oximetry Pulse Oximetry [Exertion on Room Air] Pulse Oximetry [Exertion with Oxygen] Pulse Oximetry [Resting on Room Air] Pulse Oximetry [Resting with Oxygen] 03/17/18 11:45 03/17/18 12:00 03/17/18 13:00 Temperature 98.2 F Pulse Rate 87 80 Respiratory Rate 18 Blood Pressure 112/57 L Pulse Oximetry 92 L Pulse Oximetry [Exertion on Room Air] 86 L Pulse Oximetry [Exertion with Oxygen] 93 L Pulse Oximetry [Resting on Room Air] 96 Pulse Oximetry [Resting with Oxygen] 96 03/17/18 13:45 Temperature Pulse Rate 78 Respiratory Rate Blood Pressure Pulse Oximetry Pulse Oximetry [Exertion on Room Air] Pulse Oximetry [Exertion with Oxygen] Pulse Oximetry [Resting on Room Air] Pulse Oximetry [Resting with Oxygen] GENERAL: A&O x 3 SKIN: Warm and dry. prevena dressing to chest HEAD: Normocephalic. EYES: No scleral icterus. No injection or drainage. NECK: Supple, trachea midline. No JVD or lymphadenopathy. CARDIOVASCULAR: Regular rate and rhythm without murmurs, gallops, or rubs. RESPIRATORY: Breath sounds equal bilaterally. No accessory muscle use. GASTROINTESTINAL: Abdomen soft, non-tender, nondistended. MUSCULOSKELETAL: No cyanosis, or edema. BACK: Nontender without obvious deformity. No CVA tenderness. Result Diagrams: 03/12/18 04:00 03/12/18 04:00 - Plan (1) Acute ST elevation myocardial infarction (STEMI) (3) Hypertension Plan: controlled on BB (4) S/P ascending aortic aneurysm repair Plan: dc home today with 02. (1) Acute ST elevation myocardial infarction (STEMI) Qualifiers: Involved coronary artery: right coronary artery Qualified Code(s): I21.11 - ST elevation (STEMI) myocardial infarction involving right coronary artery
[2018-03-17] MEDS: Acetaminophen 325 MG Tablet PO PRN (23:15)
[2018-03-18] MEDS: Insulin NovoLOG Aspart Correctional Sugar Inj SQ SCH ×2 (10:21→12:12)
[2018-03-18] MEDS: Amiodarone 200 MG Tablet PO SCH (10:23)
[2018-03-18] MEDS: Metoprolol Tartrate 25 MG Tablet PO SCH (10:23)
[2018-03-18] MEDS: Multivitamin/Minerals Therapeutic Tablet PO SCH (10:23)
[2018-03-18] MEDS: Docusate Sodium 100 MG Capsule PO SCH (10:23)
[2018-03-18] MEDS: Polyethylene Glycol 3350 17 GM Packet PO SCH (10:24)
[2018-03-18 12:09] VITALS: BP 110/52; PULSE 84; RESP 17; TEMP 98; O2SAT 93
--- NOTE | 2018-03-18 14:00 | P.PNCV ---
- Note Subjective/Hospital Course: A 52-year-old patient with a history of coronary artery disease and a prior MT, who apparently had an intervention approximately 10 years ago and does have a history of some hypertension, presented to the emergency room with an acute onset of severe chest pain, 01/20. The pain was in the middle of her chest, radiating to the back of her scapular area, sharp shooting pain. Upon admission to the emergency department, she was found to have an acute ST segment MT, inferior wall. The patient was emergently taken to cardiac catheterization for attempted revascularization of the RCA. There was also concern initially for an ascending aortic dissection involving the origin of the right coronary artery with compromised flow. The patient underwent emergent catheterization and had a successful PCI with a bare metal stent to reestablish flow in the right coronary artery. The patient continued having presentation of dissection of the ascending aorta, type A. She was emergently taken to the operating room for emergent surgery. PAST MEDICAL HISTORY: Again includes coronary artery disease, now status post bare metal stent to the RCA, hypertension. - Preoperative Diagnosis (1) Acute ST elevation myocardial infarction (STEMI) (2) Ascending aortic dissection Postoperative Diagnosis: same Date of procedure: 03/09/18 Procedure: Median sternotomy for repair of Type A aortic dissection Left groin cut down for femoral arterial cannulation JUNIOR Implants: 26 Hemashield graft EXTUBATED AFTER SURGERY, 03/10 on cleviprex to keep SBP<120on nasal cannula up in chair, alert and oriented plan to repeat CT chest in am start plavix today, on low dose BB keep in CVICU 03/11 off cleviprex, on low dose BB CT chest stable no carotid or subclavian dissection eval for transfer to stepdown continue ASA, statin plavix chest tube dc , check CXR in am OOB with PT , pain control 03/12 + weight , continue daily diuresis increase BB as tolerated replace K+ stable to transfer to stepdown discussed with CCM 03/13 Clinically and hemodynamically stable Continue with physical therapy Discharge disposition 03/14 Doing well On 2 L nasal cannula with O2 sats 92 Weaning O2 as tolerated Possible discharge in a.m. 03/15 discharge summary completed 03/16 pt was not dc yesterday 05/15 inability to obtain 02 at home assistant case manager working on getting home 02 dc when available 03/17 still waiting on home then dc , did not pass walk test today will evaluate at f/u [facility] office visit , if still on 02 will need pulm consult 03/18 pt to receive home oxygen today failed repeat walk test today for dc today Objective: Vital Signs - 24 hr 03/17/18 15:00 03/17/18 16:00 03/17/18 16:37 Temperature 98.2 F Pulse Rate 94 H 91 H Respiratory Rate 18 20 Blood Pressure 113/57 L Pulse Oximetry 94 L Pulse Oximetry [Exertion on Room Air] Pulse Oximetry [Exertion with Oxygen] Pulse Oximetry [Resting on Room Air] Pulse Oximetry [Resting with Oxygen] 03/17/18 17:00 03/17/18 18:00 03/17/18 19:00 Temperature Pulse Rate 89 82 97 H Respiratory Rate Blood Pressure Pulse Oximetry Pulse Oximetry [Exertion on Room Air] Pulse Oximetry [Exertion with Oxygen] Pulse Oximetry [Resting on Room Air] Pulse Oximetry [Resting with Oxygen] 03/17/18 20:00 03/17/18 21:00 03/17/18 22:00 Temperature 99.5 F Pulse Rate 94 H 84 84 Respiratory Rate 18 Blood Pressure 113/61 Pulse Oximetry 93 L Pulse Oximetry [Exertion on Room Air] Pulse Oximetry [Exertion with Oxygen] Pulse Oximetry [Resting on Room Air] Pulse Oximetry [Resting with Oxygen] 03/17/18 23:00 03/18/18 00:00 03/18/18 01:00 Temperature 98.7 F Pulse Rate 86 80 76 Respiratory Rate 18 18 Blood Pressure 120/55 L Pulse Oximetry 92 L Pulse Oximetry [Exertion on Room Air] Pulse Oximetry [Exertion with Oxygen] Pulse Oximetry [Resting on Room Air] Pulse Oximetry [Resting with Oxygen] 03/18/18 02:00 03/18/18 03:00 03/18/18 04:00 Temperature 98.0 F Pulse Rate 74 84 80 Respiratory Rate 18 Blood Pressure 111/56 L Pulse Oximetry 94 L Pulse Oximetry [Exertion on Room Air] Pulse Oximetry [Exertion with Oxygen] Pulse Oximetry [Resting on Room Air] Pulse Oximetry [Resting with Oxygen] 03/18/18 05:00 03/18/18 06:00 03/18/18 07:00 Temperature 97.9 F Pulse Rate 88 84 88 Respiratory Rate 16 Blood Pressure 109/52 L Pulse Oximetry Pulse Oximetry [Exertion on Room Air] Pulse Oximetry [Exertion with Oxygen] Pulse Oximetry [Resting on Room Air] Pulse Oximetry [Resting with Oxygen] 03/18/18 08:00 03/18/18 09:00 03/18/18 09:57 Temperature Pulse Rate 88 82 Respiratory Rate Blood Pressure Pulse Oximetry 95 Pulse Oximetry [Exertion on Room Air] Pulse Oximetry [Exertion with Oxygen] Pulse Oximetry [Resting on Room Air] Pulse Oximetry [Resting with Oxygen] 03/18/18 10:00 03/18/18 11:00 03/18/18 11:21 Temperature 98 F Pulse Rate 92 H 92 H Respiratory Rate 17 Blood Pressure 110/52 L Pulse Oximetry 93 L Pulse Oximetry [Exertion on Room Air] 82 L Pulse Oximetry [Exertion with Oxygen] 94 L Pulse Oximetry [Resting on Room Air] 92 L Pulse Oximetry [Resting with Oxygen] 94 L 03/18/18 12:00 Temperature Pulse Rate 84 Respiratory Rate Blood Pressure Pulse Oximetry Pulse Oximetry [Exertion on Room Air] Pulse Oximetry [Exertion with Oxygen] Pulse Oximetry [Resting on Room Air] Pulse Oximetry [Resting with Oxygen] GENERAL: A&O x 3 SKIN: Warm and dry. sternal incision intact and well approximated HEAD: Normocephalic. EYES: No scleral icterus. No injection or drainage. NECK: Supple, trachea midline. No JVD or lymphadenopathy. CARDIOVASCULAR: Regular rate and rhythm without murmurs, gallops, or rubs. RESPIRATORY: Breath sounds equal bilaterally. No accessory muscle use. GASTROINTESTINAL: Abdomen soft, non-tender, nondistended. MUSCULOSKELETAL: No cyanosis, or edema. BACK: Nontender without obvious deformity. No CVA tenderness. Labs: Laboratory Results - last 12 hr 03/18/18 03/18/18 07:49 11:13 POC Glucose 114 H 103 Result Diagrams: 03/12/18 04:00 03/12/18 04:00 - Plan (1) Acute ST elevation myocardial infarction (STEMI) (3) Hypertension Plan: controlled on BB (4) S/P ascending aortic aneurysm repair Plan: dc home today with 02. (5) Hypoxemia Plan: will need home 02 (1) Acute ST elevation myocardial infarction (STEMI) Qualifiers: Involved coronary artery: right coronary artery Qualified Code(s): I21.11 - ST elevation (STEMI) myocardial infarction involving right coronary artery
== END 2018-03-18 16:35 | disposition home health service (06) ==
LOC: NEPC 10:01 → NEDA 10:15 → HCVI 16:35 → HCPC 03-12 09:52
PROVIDERS: ADMIT Internal Medicine Cardiovascular Disease; ATTEND Internal Medicine Cardiovascular Disease